=== PATIENT | female | born 1980 | race Caucasian/White ===

== ENCOUNTER 2025-01-30 10:39 | Emergency (ER) | payer OTHER, SELFPAY ==
--- NOTE | ~2025-01-30 | CT_ITS ---
CLINICAL HISTORY: abd pain CT abdomen and pelvis with IV contrast. COMPARISON: None provided. FINDINGS: Small hiatal hernia. Well-defined hypoattenuating 0.7 cm lesion present within the right lobe of the liver 5th characterize but likely representing a hepatic cyst or hemangioma. Normal gallbladder. There is mild edema along the pancreatic body and tail. No organizing fluid collection. Pancreatic duct is not dilated. No pancreatic head mass identified. Normal adrenal glands. Symmetric renal enhancement. No hydronephrosis. Normal appendix. Ehbq-rd-jmaadeso colonic stool burden. No bowel obstruction. No mesenteric or retroperitoneal lymphadenopathy. Normal abdominal aorta. Urinary bladder is unremarkable given degree of distention. No adnexal mass. Small fat containing umbilical hernia. No acute fracture or suspicious bone lesion. IMPRESSION: 1. Probable mild acute pancreatitis. No organizing fluid collection, pancreatic duct dilatation, choledocholithiasis or pancreatic head mass identified. This document has been electronically signed by: Garfield Esparza MD on 01/30/2025 13:15:24
[2025-01-30 10:43] VITALS: BP 148/100; PULSE 94; O2SAT 98
[2025-01-30 10:45] VITALS: BP 124/92; PULSE 104; RESP 20; TEMP 36.8; O2SAT 97; BMI 28.3
--- NOTE | 2025-01-30 10:54 | ED.ABDPAIN ---
HPI - Abdominal Pain General Chief Complaint: Abdominal Pain Stated Complaint: DIZZY,WEAK,VOMITING PER EMS Time Seen by Provider: 01/30/25 10:50 Source: patient, family, EMS and RN notes reviewed Mode of arrival: EMS Limitations: no limitations History of Present Illness ED Provider: Danyell Ford PA-C HPI narrative: This is a 44-year-old female, with a history of endometriosis, who presents emergency department via EMS with concerns of abdominal pain, nausea and vomiting which started 4 days ago. Patient states that she has a history of endometriosis and states that she occasionally gets flare-ups. She states that she believes that she is having a current flare-up. She states that she had a total hysterectomy approximately 1 year ago and still gets flare-ups. She endorses chills. Denies documented fevers. She states that she took Excedrin this morning which provided her with some relief. She denies any diarrhea or constipation. Denies any urinary symptoms. No other complaints or concerns at this time. MD elicited complaint: abdominal pain Pertinent past history: other (Endometriosis) Location: RLQ Quality: cramping and stabbing Radiation: RLQ Migration to: no migration Exacerbating factors: nothing Relieving factors: nothing Associated symptoms: nausea, vomiting, fever (Subjective) and chills Related Data Allergies Allergy/AdvReac Type Severity Reaction Status Date / Time ondansetron (From Zofran) Allergy Unknown Verified 01/30/25 10:48 Review of Systems Review of Systems Yes all other systems are reviewed and are negative Constitutional: Reports as per HPI [facility] Past Medical History Attestation statement: The following information was validated with the patient. Social History Social History Advance Directives: No Advance Directives Information Provided: No Physical Exam ED Vital Signs: Vital Signs - 24 hr 01/30/25 10:45 01/30/25 12:04 01/30/25 14:49 Temperature 98.2 F 97.8 F 97.9 F Pulse Rate 104 H 84 89 Respiratory Rate 20 20 13 Blood Pressure 124/92 H 146/91 H 107/81 Pulse Oximetry 97 98 98 Oxygen Delivery Method Room Air Room Air Room Air 01/30/25 14:56 Temperature 97.9 F Pulse Rate 89 Respiratory Rate 13 Blood Pressure 107/81 Pulse Oximetry 98 Oxygen Delivery Method Room Air BMI result Body Mass Index 28.3 Const Other: Patient appears to be uncomfortable secondary to pain. General: cooperative, comfortable and anxious Orientation/consciousness: patient oriented x3 Limitations: no limitations HENMT Head: Yes normal to inspection, Yes normocephalic and Yes atraumatic Ears: hearing grossly normal bilaterally General nose exam: Normal external nose present Face and sinus: Yes normal facial exam Mouth: Normal oral and palatal mucosa present, oropharynx normal and moist mucous membranes Throat: Yes posterior oropharynx normal Eyes General: appearance normal, both eyes and all related structures Eyelids: Yes eyelids normal Conjunctivae: conjunctivae normal Sclerae: sclerae normal Pupils: Equal, round and reactive pupils present EOM: EOMs intact bilaterally Neck Neck: Yes normal visual inspection, Yes full ROM and Yes no lymphadenopathy Lymphatic: no lymphadenopathy noted Chest Chest palpation & inspection: normal inspection of the chest Resp Effort & Inspection: normal respiratory effort and able to speak in complete sentences Auscultation: clear to auscultation bilaterally, no crackles, no rales, no rhonchi and no wheezes Cardio Rate: regular rate Rhythm: regular rhythm Heart sounds: S1 normal heart sound present and S2 normal heart sound present GI Other: Abdomen is soft with tenderness to palpation in the right lower quadrant, with guarding. Skin General skin exam: no rashes or lesions noted Trauma: no lacerations or abrasions Wounds: no wounds Neuro General: patient oriented x3 and moves all extremities Cranial nerves: Yes Equal, round and reactive pupils present Extrem General: Yes normal to inspection Right upper extremity: normal to inspection Left upper extremity: normal to inspection Right lower extremity: normal to inspection Left lower extremity: normal to inspection Medical Decision Making Medical Decision Making MDM Narrative: This is a 44-year-old female who presents emergency department via EMS accompanied by her with concerns of abdominal pain for the last 4 days. Patient has a history of endometriosis, and believes that this is a flare-up. History of hysterectomy, no other abdominal surgeries. Reporting subjective fevers and chills. On arrival, patient mildly hypertensive at 124/92, pulse 104, likely secondary to pain and anxiety. She is afebrile, speaking in full sentences. Patient appears to be uncomfortable secondary to abdominal pain. Abdomen is soft with tenderness palpation in the right lower quadrant, no rebound, she does have guarding noted. Differential diagnoses include endometriosis, diverticulitis, appendicitis. Plan: Labs, antiemetics, pain medication, CT abdomen and pelvis with IV contrast. Course: 11:58AM - patient's symptoms have not improved despite receiving morphine, appears to be still in significant pain, patient medicated with Dilaudid 1 mg IV. 12:57PM - patient remains to be very uncomfortable, patient re medicated with 2nd dose of Dilaudid 0.75 mg IV push as well as Toradol 15 mg IV push. Labs returned, she has slight leukocytosis at 12.7, likely reactive, infection is not suspected at this time. Chemistry within normal ranges, AST and ALT elevated in AST at 53, ALT 119, lipase elevated at 84. Urine with high specific gravity, no evidence of infection, she has no urinary symptoms. Cat scan returns findings concerning for mild pancreatitis. Given intractable pain, requiring multiple pain modality treatments including multiple doses of the Dilaudid, morphine, Toradol as well as antiemetics, patient will be best served to be admitted to the hospital for further management and treatment of her pain. I discussed this at length, she adamantly refuses. I expressed to patient that we can not discharge her on any pain medication as she required high doses of pain medication to take the edge off of her pain. I discussed with patient that she should be monitored however patient still refuses. She states that she would like to be discharged home as she could shower in get all of her belongings. Family at bedside encouraged her to stay, stating that they will also picker / packer her belongings however patient states that she must leave. I asked if there is anything in addition to help her stay, she still refuses. I discussed the risks and benefits of leaving, patient signed against medical advice as patient's medical condition can decline, including severe pain, infection, and or . She understands the risks, and would still like to be sign out. AMA paperwork signed. Differential Diagnosis Differential Diagnoses: The differential diagnosis associated with the presentation includes See above Admission/Observation Consideration of admission/observation: Escalation of care including admission/observation considered Lab Data [facility] Lab Attestation statement: I reviewed the patient's lab results. See [facility] and course 01/30/25 11:07 01/30/25 11:07 Labs: Lab Results 01/30/25 Range/Units 11:07 WBC 12.7 H (4.8-10.8) X10*3/uL RBC 4.21 (4.20-5.50) X10*6/uL Hgb 12.7 (12.0-16.0) g/dl Hct 34.4 L (37.0-47.0) % MCV 81.7 (80.0-98.0) fL MCH 30.2 (27.0-33.0) pg MCHC 36.9 H (31.0-35.0) g/dl RDW 12.1 (11.0-16.0) % Plt Count 331 (160-400) X10*3/uL MPV 9.9 (9.4-12.3) fL Immature Gran % (Auto) 0.4 (0.0-0.4) % Neut % (Auto) 87.8 H (45-73) % Lymph % (Auto) 7.7 L (20-40) % [place] % (Auto) 3.9 (2-11) % Eos % (Auto) 0.0 (0-4) % Baso % (Auto) 0.2 (0-2) % Lymph # (Auto) 1.0 L (1.2-4.9) X10*3/uL [place] # (Auto) 0.5 (0.1-1.2) X10*3/uL Eos # (Auto) 0.0 (0.0-0.4) X10*3/uL Baso # (Auto) 0.0 (0.0-0.2) X10*3/uL Abs Immat Gran (auto) 0.05 H (0.00-0.03) X10*3/uL Absolute Neuts (auto) 11.1 H (2.0-8.3) x10*3/uL Absolute Nucleated RBC 0.000 (0.0-0.012) X10*3/uL Nucleated RBC % (auto) 0.0 (0.0-0.2) /100WBC Sodium 140 (135-145) mmol/L Potassium 3.4 (3.3-5.1) mmol/L Chloride 108 (96-108) mmol/L Carbon Dioxide 18 L (22-29) mmol/L Anion Gap 17 (12-20) BUN 16 (9-16) mg/dL Creatinine 0.62 (0.5-1.4) mg/dL Estim Creat Clear Calc 107.4 Estimated GFR > 60 Random Glucose 109 (60-115) mg/dL Calcium 8.6 (8.4-10.2) mg/dL Magnesium 1.9 (1.6-2.6) mg/dL Total Bilirubin 0.7 (0.0-1.0) mg/dL Direct Bilirubin 0.4 (0.0-0.5) mg/dL AST 53 H (5-31) U/L ALT 119 H (0-31) U/L Alkaline Phosphatase 71 (39-117) U/L Total Protein 7.1 (6.5-8.0) g/dL Albumin 4.6 (3.5-5.0) g/dL Lipase 84 H (8-78) U/L Urine Color Dark Yellow Urine Appearance Clear Urine pH 6.5 (5.0-9.0) Ur Specific [place] >= 1.030 H (1.005-1.025) Urine Protein 30 (1+) H (Neg-Trace) mg/dL Urine Glucose (UA) Negative (Negative) mg/dL Urine Ketones >=160 (Negative) mg/dL Urine Blood Negative (Negative) Urine Nitrite Negative (Negative) Ur Leukocyte Esterase Trace H (Negative) Urine RBC 0-2 (0-2) /HPF Urine WBC 0-5 (0-5) /HPF Ur Squamous Epith Cells 3-5 (0-2) /HPF Urine Bacteria Trace (None Seen) Hyaline Casts 0-2 (0-2) /LPF Radiology Impression Discussion of test interpretation with radiology: I have reviewed the radiologist's reading. Radiologist Impression: FINDINGS: Small hiatal hernia. Well-defined hypoattenuating 0.7 cm lesion present within the right lobe of the liver 5th characterize but likely representing a hepatic cyst or hemangioma. Normal gallbladder. There is mild edema along the pancreatic body and tail. No organizing fluid collection. Pancreatic duct is not dilated. No pancreatic head mass identified. Normal adrenal glands. Symmetric renal enhancement. No hydronephrosis. Normal appendix. [id number] colonic stool burden. No bowel obstruction. No mesenteric or retroperitoneal lymphadenopathy. Normal abdominal aorta. Urinary bladder is unremarkable given degree of distention. No adnexal mass. Small fat containing umbilical hernia. No acute fracture or suspicious bone lesion. IMPRESSION: 1. Probable mild acute pancreatitis. No organizing fluid collection, pancreatic duct dilatation, choledocholithiasis or pancreatic head mass identified. This document has been electronically signed by: Garfield Esparza MD on 01/30/2025 13:15:24 Dictated By: Garfield Esparza MD Medications Administered Discontinued Medications Generic Name Dose Route Start Last Admin Trade Name Freq PRN Reason Stop Dose Admin Diphenhydramine HCl 12.5 mg 01/30/25 10:59 01/30/25 11:08 Diphenhydramine Hcl 50 Mg/Ml Vial IVPUSH 01/30/25 11:00 12.5 mg ONCE ONE Administration Hydromorphone HCl 1 mg 01/30/25 11:58 01/30/25 12:06 Hydromorphone Hcl 1 Mg/Ml Syringe IVPUSH 01/30/25 11:59 1 mg ONCE ONE Administration Protocol Hydromorphone HCl 0.75 mg 01/30/25 12:57 01/30/25 13:12 Hydromorphone Hcl 1 Mg/Ml Syringe IVPUSH 01/30/25 12:58 0.75 mg ONCE ONE Administration Protocol Sodium Chloride 1,000 mls @ 999 mls/hr 01/30/25 11:22 01/30/25 13:17 Ns IVCONT 01/30/25 12:22 Infused .Q1H1M ONE Infusion Iohexol 85 ml 01/30/25 12:26 01/30/25 12:27 Iohexol 350 Mg/Ml 100 Ml Infus..Btl IV 01/30/25 12:27 85 ml ONCE ONE Administration Ketorolac Tromethamine 15 mg 01/30/25 12:52 01/30/25 13:12 Ketorolac Tromethamine 15 Mg/Ml Vial IVPUSH 01/30/25 12:53 15 mg ONCE ONE Administration Metoclopramide HCl 10 mg 01/30/25 10:59 01/30/25 11:08 Metoclopramide Hcl 10 Mg/2 Ml Vial IVPUSH 01/30/25 11:00 10 mg ONCE ONE Administration Morphine Sulfate 4 mg 01/30/25 10:59 01/30/25 11:08 Morphine Sulfate 4 Mg/Ml Cartridge IVPUSH 01/30/25 11:00 4 mg ONCE ONE Administration Protocol Critical Care Time Critical Care Time Critical Care Time: Yes Total Critical Care Time: 45 Attestation: I have personally provided critical care time exclusive of time spent on separately billable procedures. Time includes review of lab data, radiology results, discussion with consultants, and monitoring for potential decompensation. Intervention performed as documented. Discharge Plan Discharge Clinical Impression: Pancreatitis Patient Disposition: Left Against Medical Advice Instructions: Pancreatitis (ED) Additional Instructions: You were seen in the emergency department due to severe abdominal pain. Your CT scan is concerning for acute pancreatitis, this aligns with your blood work. I strongly encouraged you to stay to possibly be admitted to the hospital given the severity of your abdominal pain, and we had to medicate you with multiple pain medications. You have refused staying, at this point you are leaving against medical advice. Leaving against medical advice can lead to serious harm in disability including but not limited to severe infection, injury, and or . You understands the risks and consequences of signing against medical advice. I encourage you to follow-up with your primary care physician. If any new or worsening symptoms occur including but not limited to worsening pain, chest pain, high fevers, please seek emergent care. Stand Alone Forms: Against Medical Advice Interventions: ED Discharge Assessment Last Done: 01/30/25 14:56 Discharge Date/Time: 01/30/25 14:56 Print Language: Beninese
[2025-01-30 11:12] LABS: MANUAL DIFF FLAG NO
[2025-01-30 11:15] LABS: Appearance Urine Clear; Glucose Urine UA Negative (Negative); Hematocrit 34.4 % (37.0-47.0); Hemoglobin 12.7 g/dl (12.0-16.0); Imm Gran Abs Auto 0.05 X10*3/uL (0.00-0.03); Imm Gran Pct Auto 0.4 % (0.0-0.4); Lymphocytes Absolute Auto 1.0 X10*3/uL (1.2-4.9); Mean Corpuscular HGB Conc 36.9 g/dl (31.0-35.0); Mean Corpuscular Hemoglobin 30.2 pg (27.0-33.0); Mean Corpuscular Volume 81.7 fL (80.0-98.0); NRBC Abs Auto 0.000 X10*3/uL (0.0-0.012); NRBC Pct Auto 0.0 /100WBC (0.0-0.2); PH 6.5 (5.0-9.0); Platelet Count 331 X10*3/uL (160-400); Red Blood Count 4.21 X10*6/uL (4.20-5.50); Specific Gravity - Urine >= 1.030 (1.005-1.025); UMIC TRIGGER UACC YES; White Blood Count 12.7 X10*3/uL (4.8-10.8)
--- OUTSIDE RECORDS SUMMARY | 2025-01-30 11:25 | XMS_ITS | Patient Health Record ---
Author Organization [facility] [address] Address [address] [place] [address] Care Team Providers Care Pomologist Name Role Phone BYRON MALDONADO Unavailable [phone] EDIE LOPEZ Unavailable [phone] SHON WELCH Unavailable [phone] Allergies Allergen (clinical drug ingredient) Drug/Non Drug Allergy documented on EMR Reaction Allergy Type Onset Date Status Zofran vomiting Drug Allergy Active Results Component Value Reference Range Notes IRON, TIBC AND FERRITIN PANE L Reviewed date:09/25/2024 12:30:03 PM Interpretation: Performing Lab:NL[facility], [employer] [facility] Lili [facility] Notes/Report: FASTING: NO FASTING:NO IRON, TOTAL 86 40-190 mcg/dL IRON BINDING CAPACITY 381 250-450 mcg/dL (lauro c) % SATURATION 23 16-45 % (calc) FERRITIN 10 16-232 ng/mL VITAMIN D,25-OH,TOTAL,IA Reviewed date:09/15/2024 07:55:57 AM Interpretation: Performing Lab:NL2, [employer] [facility] [address] [place], [place] [address] Lili Painter Notes/Report: FASTING: NO FASTING:NO VITAMIN D,25-OH,TOTAL,IA 38 30-100 ng/mL Vitamin D Status 25-OH Vitamin D: Deficiency: <20 ng/mL Insufficiency: 20 - 29 ng/mL Optimal: > or = 30 ng/mL For 25-OH Vitamin D testing on patients on D2-supplementation and patients for whom quantitation of D2 and D3 fractions is required, the QuestAssureD() 25-OH VIT D, (D2,D3), LC/MS/MS is recommended: order code 21728 (patients >2yrs). See Note 1 Note 1 For additional information, please refer to http://education.[employer]/faq/RNX722 (This link is being provided for informational/ educational purposes only.) VITAMIN B12 Reviewed date:09/15/2024 09:59:47 AM Interpretation: Performing Lab:[employer], [employer] [facility] [id number] Pending Sale To [facility] Notes/Report: FASTING:NO FASTING: NO VITAMIN B12 497 457-6784 pg/mL RHEUMATOID FACTOR Reviewed date:09/15/2024 07:55:57 AM Interpretation: Performing Lab:Vayyar2, [employer] [facility] [facility] Notes/Report: FASTING:NO FASTING: NO RHEUMATOID FACTOR <10 <14 IU/mL CBC (INCLUDES DIFF/PLT) Reviewed date:09/15/2024 12:05:37 PM Interpretation: Performing Lab:[employer], [employer] [facility] [facility] Notes/Report: FASTING:NO FASTING: NO WHITE BLOOD CELL COUNT 6.0 3.8-10.8 Thousand/ uL RED BLOOD CELL COUNT 3.90 3.80-5.10 Million/uL HEMOGLOBIN 11.1 11.7-15.5 g/dL HEMATOCRIT 33.6 35.0-45.0 % MCV 86.2 80.0-100.0 fL MCH 28.5 27.0-33.0 pg MCHC 33.0 32.0-36.0 g/dL For adults, a slight decrease in the calculated MCHC value (in the range of 30 to 32 g/dL) is most likely not clinically significant; however, it should be interpreted with caution in correlation with other red cell parameters and the patient's clinical condition. RDW 15.6 11.0-15.0 % PLATELET COUNT 488 140-400 Thousand/uL MPV 10.4 7.5-12.5 fL ABSOLUTE NEUTROPHILS 3168 1411-7922 cells/uL ABSOLUTE LYMPHOCYTES 2142 850-3900 cells/uL ABSOLUTE MONOCYTES 438 200-950 cells/uL ABSOLUTE EOSINOPHILS 192 15-500 cells/uL ABSOLUTE BASOPHILS 60 0-200 cells/uL NEUTROPHILS 52.8 LYMPHOCYTES 35.7 MONOCYTES 7.3 EOSINOPHILS 3.2 BASOPHILS 1.0 [address]PREHENSIVE METABOLIC PANE L Reviewed date:09/15/2024 12:05:29 PM Interpretation: Performing Lab:[employer], [employer] [facility] Lili Painter Notes/Report: FASTING:NO FASTING: NO GLUCOSE 98 65-139 mg/dL Non-fasting reference interval UREA NITROGEN (BUN) 8 7-25 mg/dL CREATININE 0.86 0.50-0.99 mg/dL EGFR 86 > OR = 60 mL/min/1.73m2 BUN/CREATININE RATIO SEE NOTE: 6-22 (calc) Not Reported: BUN and Creatinine are within reference range. SODIUM 141 135-146 mmol/L POTASSIUM 3.9 3.5-5.3 mmol/L CHLORIDE 108 98-110 mmol/L CARBON DIOXIDE 26 20-32 mmol/L CALCIUM 9.2 8.6-10.2 mg/dL PROTEIN, TOTAL 6.5 6.1-8.1 g/dL ALBUMIN 4.3 3.6-5.1 g/dL GLOBULIN 2.2 1.9-3.7 g/dL (calc) ALBUMIN/GLOBULIN RATIO 2.0 1.0-2.5 (calc) BILIRUBIN, TOTAL 0.2 0.2-1.2 mg/dL ALKALINE PHOSPHATASE 57 31-125 U/L AST 7 10-30 U/L ALT 14 6-29 U/L HARPAL SCREEN, IFA, W/REFL TITE R AND PATTERN Reviewed date:09/15/2024 04:11:28 PM Interpretation: Performing Lab:[employer], [employer] [facility] [address] Lili Painter Notes/Report: FASTING:NO FASTING: NO HARPAL SCREEN, IFA NEGATIVE NEGATIVE HARPAL IFA is a first line screen for detecting the presence of up to approximately 150 autoantibodies in various autoimmune diseases. A negative HARPAL IFA result suggests an HARPAL-associated autoimmune disease is not present at this time, but is not definitive. If there is high clinical suspicion for Sjogren's syndrome, testing for anti-SS-A/Ro antibody should be considered. Anti-Danita-1 antibody should be considered for clinically suspected inflammatory myopathies. AC-0: Negative International Consensus on HARPAL Patterns (https://doi.org/10.1515/cc oz-7688-4472) For additional information, please refer to http://education.[employer]/faq/GOV988 (This link is being provided for informational/ educational purposes only.) SED RATE BY MODIFIED JOANA MERRITT Reviewed date:09/15/2024 08:12:06 AM Interpretation: Performing Lab:NL2, [employer] [facility]-via[facility]oo [address] [facility] Lili Painter Notes/Report: FASTING:NO FASTING: NO SED RATE BY MODIFIED SHAUNA 6 < OR = 20 mm/h Reason For Referral Reason evaluate & treat Diagnosis 1 History of endometri osis (Z87.42) Referral Organization [facility] IFEANYI Referring Provider First Name BYRON Referring Provider Last Name ERICA Referring Provider Speciality Internal edicine Referred Provider Specialty Compliance Project Manager and rn licensed practical Clinical Notes Martha Cat 11/27 02:48:08 PM > faxed pt info to [facility]. p) [phone] f) [phone], Jasvir Lassiter 01/07/2025 02:37:53 PM > Michelle, conf fax. Refaxed twice. Referral Priority Routine Reason evaluate. s/p hyster ectomy Diagnosis 1 Nerve pain (M79.2) Referral Organization [facility] MICHAELA SUGGS Referring Provider First Name BYRON Referring Provider Last Name ERICA Referring Provider Speciality Internal edicine Referred Provider Specialty Pain Medicin e Clinical Notes Martha Cat 11/27 02:52:02 PM > faxed pt info to [facility]. p) [phone] f) [phone], PATRICIA CERNA 12/31/2024 04:11:31 PM >[facility], [address] [place] [address], p- [phone], Fax: [phone], Jasvir Lassiter 01/07/2025 02:49:27 PM > Spoke with misty Troncoso fax. When I fax it, it says Tiff, PDF and/or Word files are attached to this referral. ERYN KIERSTEN 01/07/2025 03:38:41 PM >refaxed Referral Priority Routine Medications Medication SIG (Take, Route, Frequency, Duration) Notes Start Date End Date Status Cyclobenzaprine HCl 5 MG 1 tablet at bed time as needed; Duration: 30 days Active Pregabalin 25 MG TAKE 1 CAPSULE BY MO UTH EVERY DAY FOR 30 DAYS Orally twice a day; Duration: 30 days 01/18/2025 Active Ferrous Sulfate 325 (65 Fe) MG TAKE 1 TABLET BY MOUTH THREE TIMES A WEEK; Duration: 84 Active [facility] Iron 240 (27 Fe) MG TAKE 1 TABLET BY MOUTH THREE TIMES A WEEK; Duration: 84 Active hydrOXYzine HCl 25 MG TAKE 1 TABLET BY M OUTH EVERY DAY NEEDED FOR ANXIETY; Duration: 90 Active buPROPion HCl ER (XL) 450 MG TAKE 1 TABL ET BY MOUTH EVERY DAY Oral; Duration: 90 days Active Norethindrone 0.35 MG TAKE 1 TABLET (0.3 5 MG) BY MOUTH EVERY DAY Oral; Duration: 84 Days Active Ibuprofen 800 MG TAKE 1 TABLET (800 M G TOTAL) BY MOUTH 3 TIMES A DAY NEEDED FOR PAIN (PAIN). Oral; Duration: 30 Days Active Escitalopram Oxalate 20 MG TAKE 1 TABLET BY MOUTH EVERY DAY Oral; Duration: 90 Days Active predniSONE 20 MG 1 tablet with food o r milk Orally twice a day; Duration: 5 days 12/17/2024 Active Problems Problem Type SNOMED Code ICD Code Onset Dates Problem Status W/U Status Risk Notes Problem Vitamin D deficiency (93274113) Vitamin D deficiency, unspecified (E55.9) Active confirmed Problem Lipid screening (331591386) Encounter for screening for lipoid disorders (Z13.220) Active confirmed Problem Endocrine/metaboli c screening (612637945) Encounter for screening for other suspected endocrine disorder (Z13.29) Active confirmed Problem Anxiety (31087318) Anxiety (F41.9) Active confi rmed Problem Fatigue (69181582) Fatigue, unspecified type (R53.83) Active confirmed Problem Memory loss (56117404) Memory loss (R41.3) Active confirmed Problem Anemia (523554444) Anemia, unspecified type (D64.9) Active confirmed Problem Annual health maintenance examination (71817323) Annual physical exam (Z00.00) Active confirmed Problem Pain (18241154) Pain (R52) Active confirmed Problem Vitamin B>12< deficiency anaemia (21305245) Anemia due to vitamin B12 deficiency, unspecified B12 deficiency type (D51.9) Active confirmed Problem Difficulty passing urine (710141477) Difficulty urinating (R39.198) Active confirmed Problem Radicular pain (82514783) Nerve pain (M79.2) Active confirmed Problem Pain in female pelvis (668730641) Pelvic pain in female (R10.2) Active confirmed Problem History of endometriosis (63699376961395139 ) History of endometriosis (Z87.42) Active confirmed Problem Osteoarthritis (684129513) Joint inflammation (M19.90) Active confirmed Vital Signs Heart Rate 96 /min 12/31/2024 Oximetry 97 % 12/31/2024 Blood pressure diastolic 70 mm Hg 12/31/2024 Height 61 in 12/31/2024 Blood pressure systolic 118 mm Hg 12/31/2024 Weight 162.4 lbs 12/31/2024 BMI 30.68 kg/m2 12/31/2024 Encounters Encounter Location Date Provider Diagnosis [facility] [address] [place] [address] 09/11/2024 BYRNO ERICA Pain R52 ; Pelvic pa in in female R10.2 ; Nerve pain M79.2 ; Anxiety F41.9 and Leg muscle spasm M62.[address] [address] 09/18/2024 BYRON ERICA Pain R52 ; Pelvic pa in in female R10.2 ; Nerve pain M79.2 ; Anxiety F41.9 ; Leg muscle spasm M62.838 ; Anemia, unspecified type D64.9 and Difficulty urinating R39.198 [facility] [address] [place] [address] 10/02/2024 BYRON ERICA Nerve pain M79.2 ; P ain R52 ; Pelvic pain in female R10.2 ; Anxiety F41.9 ; Leg muscle spasm M62.838 ; Anemia, unspecified type D64.9 and Difficulty urinating R39.[address] [facility] [address] [place] [address] 12/17/2024 BYRON ERICA Pain R52 ; Annual physical exam Z00.00 ; Nerve pain M79.2 ; Pelvic pain in female R10.2 ; Anxiety F41.9 ; Leg muscle spasm M62.838 ; Anemia, unspecified type D64.9 ; Difficulty urinating R39.198 ; Fatigue, unspecified type R53.83 ; Joint inflammation M19.90 and Encounter for examination of blood pressure without abnormal findings Z01.[address] [address] [place] [address] 12/31/2024 BYRON ERICA Pain R52 ; Nerve radha n M79.2 ; Pelvic pain in female R10.2 ; Anxiety F41.9 ; Leg muscle spasm M62.838 ; Anemia, unspecified type D64.9 ; Difficulty urinating R39.198 ; Fatigue, unspecified type R53.83 ; Joint inflammation M19.90 and Encounter for examination of blood pressure without abnormal findings Z01.[address] [address] [place] [address] 09/11/2024 BYRON ERICA Pelvic pain in femal e R10.2 [facility] [address] 09/11/2024 BYRON ERICA [facility] [address] [address] 09/17/2024 BYRON ERICA [facility] [address] [place] [address] 09/21/2024 BYRON ERICA [facility] [address] [address] 09/25/2024 BYRON ERICA [facility] [address] [place] [address] 09/29/2024 EDIE PARTHENON [facility] [address] [address] 09/29/2024 [facility] [address] [address] 09/30/2024 BYRON ERICA [facility] [address] [address] 10/05/2024 BYRON ERICA [facility] [address] [facility] [address] [place] [address] 10/26/2024 BYRON ERICA Nerve pain M79.2 [facility] [address] [facility] [address] [place] [address] 11/27/2024 BYRON ERICA Nerve pain M79.[address] [facility] [place] [address] 12/11/2024 BYRON ERICA [facility] [address] [facility] [address] [place] [address] 12/17/2024 EDIE LOPEZ [facility] [address] [place] [address] 12/18/2024 BYRON ERICA [facility] [address] [address] 12/30/2024 BYRON ERICA [facility] [address] [place] [address] 12/31/2024 BYRON ERICA Memory loss R41.3 an d Other fatigue R53.83 [facility] [address] [facility] [address] [place] [address] 12/31/2024 BYRON ERICA [facility] [address] [address] 01/06/2025 BYRON ERICA [facility] [address] [place] [address] 01/07/2025 BYRON ERICA [facility] [address] [place] [address] 01/15/2025 SHON YURI Nerve pain M79.2 [facility] [address] [address] 01/15/2025 EDIE LOPEZ [facility] [address] [place] [address] 01/15/2025 BYRON ERICA Nerve pain M79.2 [facility] [address] [facility] [address] [place] [address] 01/05/2025 EDIE LOPEZ Assessments Encounter Date Diagnosis (ICD Code) Assessment Notes Treatment Notes Treatment Clinical Notes Section Notes 09/11/2024 Pain (ICD-10 - R52) Domingo is a pleasant 43-year-old female who presents to the office today as a new patient. The patient does have a past medical history of endometriosis, hypertension and an extremely complex FACETER history. #Abdominal pain: Patient presented on 09/05/2024 at [facility] status post hysterectomy at [facility] about 3 months ago, severe worsening pain that is on the right side of her abdomen, in the right side of her back, buttocks and radiates down the leg. She states that the pain is so severe that it is causing her. She has never had a pain like this before, no loss of bladder or bowel function. Patient was given IV hydromorphone and alprazolam. #Pain Control: Patient will be sent home with gabapentin 100 mg to be utilized as needed for nerve pain, tizanidine 4 mg to butyl eyes for muscle spasms as needed as well as hydroxyzine to utilize as needed for sleep. #Anxiety: Continue Lexapro 20 mg, Wellbutrin 300 mg, Xanax as needed. Patient educated to replace hydroxyzine for Xanax due to Xanax being too strong for the patient at this time. Patient educated that hydroxyzine may make her tired. #Insomnia: Continue hydroxyzine as needed #Difficulty urinating: Obtaining stat CT of the abdomen and pelvis, Patient did have a slightly elevated white blood cell count within the emergency department on 09/05/2024 with a level of 11, Additionally patient's neutrophils were noted to be 85.6. Infection less likely on the differential as the patient was previously seen in the ER on 09/05/2024 however cannot be completely ruled out. #Endometriosis history: Patient encouraged to call and establish PRESCHOOL ASSISTANT PRINCIPAL care around the area. Will have patient sign record release for [facility] PRESCHOOL ASSISTANT PRINCIPAL. All questions have been answered to patient's satisfaction. Patient verbalized understanding of diagnosis and treatments explained. Advised to call sooner prior to next visit it any questions/concerns arise. Case discussed with Johnny GUEVARA who reviewed the assessment and plan. Chart, medications, labs, vital signs reviewed. Dictation was accomplished with the use of [employer] voice recognition software, which is prone to medical misidentifications and grammatical errors. This are unintentional and the practitioner does try to identify and correct these, but some could still be present. Please do not hesitate to contact practitioner for clarification. 09/11/2024 Pelvic pain in female (ICD-10 - R10.2) Domingo is a pleasant 43-year-old female who presents to the office today as a new patient. The patient does have a past medical history of endometriosis, hypertension and an extremely complex FACETER history. #Abdominal pain: Patient presented on 09/05/2024 at [facility] status post hysterectomy at [facility] about 3 months ago, severe worsening pain that is on the right side of her abdomen, in the right side of her back, buttocks and radiates down the leg. She states that the pain is so severe that it is causing her. She has never had a pain like this before, no loss of bladder or bowel function. Patient was given IV hydromorphone and alprazolam. #Pain Control: Patient will be sent home with gabapentin 100 mg to be utilized as needed for nerve pain, tizanidine 4 mg to butyl eyes for muscle spasms as needed as well as hydroxyzine to utilize as needed for sleep. #Anxiety: Continue Lexapro 20 mg, Wellbutrin 300 mg, Xanax as needed. Patient educated to replace hydroxyzine for Xanax due to Xanax being too strong for the patient at this time. Patient educated that hydroxyzine may make her tired. #Insomnia: Continue hydroxyzine as needed #Difficulty urinating: Obtaining stat CT of the abdomen and pelvis, Patient did have a slightly elevated white blood cell count within the emergency department on 09/05/2024 with a level of 11, Additionally patient's neutrophils were noted to be 85.6. Infection less likely on the differential as the patient was previously seen in the ER on 09/05/2024 however cannot be completely ruled out. #Endometriosis history: Patient encouraged to call and establish PRESCHOOL ASSISTANT PRINCIP[employer] care around the area. Will have patient sign record release for [facility] PRESCHOOL ASSISTANT PRINCIPAL. All questions have been answered to patient's satisfaction. Patient verbalized understanding of diagnosis and treatments explained. Advised to call sooner prior to next visit it any questions/concerns arise. Case discussed with Johnny GUEVARA who reviewed the assessment and plan. Chart, medications, labs, vital signs reviewed. Dictation was accomplished with the use of [employer] voice recognition software, which is prone to medical misidentifications and grammatical errors. This are unintentional and the practitioner does try to identify and correct these, but some could still be present. Please do not hesitate to contact practitioner for clarification. 09/11/2024 Pelvic pain in female (ICD-10 - R10.2) 09/18/2024 Pain (ICD-10 - R52) Domingo is a pleasant 43-year-old female who presents to the office today as a new patient. The patient does have a past medical history of endometriosis, hypertension and an extremely complex FACETER history. #Abdominal pain: Patient presented on 09/05/2024 at [facility] status post hysterectomy at [facility] about 3 months ago, severe worsening pain that is on the right side of her abdomen, in the right side of her back, buttocks and radiates down the leg. She states that the pain is so severe that it is causing her. She has never had a pain like this before, no loss of bladder or bowel function. Patient was given IV hydromorphone and alprazolam. CT scan of the abdomen and pelvis are unremarkable. #Pain management: Prednisone taper will be sent to the pharmacy, she is to utilize tizanidine HCL 4 mg tablets every 4-6 hours as needed for muscle spasms. We will be discontinuing gabapentin 100 mg at this time as the patient had a reaction to this medication. Consider Cymbalta or Lyrica. 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 Arango office to establish gynecologic care. #Difficulty urinating: Urinary bladder noted to be unremarkable on recent CT scan. However pre and post residual volume kidney and bladder ultrasound ordered today for further evaluation. Consider referring patient to urogynecology. #Endometriosis: Patient currently on norethindrone 0.35 mg tablets daily. Patient's mother inquiring about nonnarcotic pain medication, however I do not feel comfortable prescribing this today. Patient needs to bring this up with her newly established PRESCHOOL ASSISTANT PRINCIPAL for further pain management. #Insomnia: Continue hydroxyzine 25 mg tablets daily. #Anxiety: Continue Lexapro 20 mg, Wellbutrin 300 mg, Xanax as needed. Patient educated to replace hydroxyzine for Xanax due to Xanax being too strong for the patient at this time. Patient educated that hydroxyzine may make her tired. #Thrombocytosis: Will be ordering iron studies for further evaluation #Insomnia: Continue hydroxyzine as needed #Difficulty urinating: Ordering kidney and bladder ultrasound. Patient did have a slightly elevated white blood cell count within the emergency department on 09/05/2024 with a level of 11, Additionally patient's neutrophils were noted to be 85.6. Infection less likely on the differential as the patient was previously seen in the ER on 09/05/2024 however cannot be completely ruled out. Repeat CBC demonstrated no evidence of increased white blood cell count which is reassuring. #Endometriosis history: Patient encouraged to call and establish PRESCHOOL ASSISTANT PRINCIPAL care around the area. Will have patient sign record release for [facility] PRESCHOOL ASSISTANT PRINCIPAL. #Fatigue: Due to patient's increased platelet, iron studies will be obtained. Patient states that she was told in the past she had been anemic, patient today states that she does take [id number] iron supplementation All questions have been answered to patient's satisfaction. Patient verbalized understanding of diagnosis and treatments explained. Advised to call sooner prior to next visit it any questions/concerns arise. Case discussed with Johnny GUEVARA who reviewed the assessment and plan. Chart, medications, labs, vital signs reviewed. Dictation was accomplished with the use of [employer] voice recognition software, which is prone to medical misidentifications and grammatical errors. This are unintentional and the practitioner does try to identify and correct these, but some could still be present. Please do not hesitate to contact practitioner for clarification. 09/18/2024 Pelvic pain in female (ICD-10 - R10.2) Domingo is a pleasant 43-year-old female who presents to the office today as a new patient. The patient does have a past medical history of endometriosis, hypertension and an extremely complex FACETER history. #Abdominal pain: Patient presented on 09/05/2024 at [facility] status post hysterectomy at [facility] about 3 months ago, severe worsening pain that is on the right side of her abdomen, in the right side of her back, buttocks and radiates down the leg. She states that the pain is so severe that it is causing her. She has never had a pain like this before, no loss of bladder or bowel function. Patient was given IV hydromorphone and alprazolam. CT scan of the abdomen and pelvis are unremarkable. #Pain management: Prednisone taper will be sent to the pharmacy, she is to utilize tizanidine HCL 4 mg tablets every 4-6 hours as needed for muscle spasms. We will be discontinuing gabapentin 100 mg at this time as the patient had a reaction to this medication. Consider Cymbalta or Lyrica. 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 Arango office to establish gynecologic care. #Difficulty urinating: Urinary bladder noted to be unremarkable on recent CT scan. However pre and post residual volume kidney and bladder ultrasound ordered today for further evaluation. Consider referring patient to urogynecology. #Endometriosis: Patient currently on norethindrone 0.35 mg tablets daily. Patient's mother inquiring about nonnarcotic pain medication, however I do not feel comfortable prescribing this today. Patient needs to bring this up with her newly established PRESCHOOL ASSISTANT PRINCIPAL for further pain management. #Insomnia: Continue hydroxyzine 25 mg tablets daily. #Anxiety: Continue Lexapro 20 mg, Wellbutrin 300 mg, Xanax as needed. Patient educated to replace hydroxyzine for Xanax due to Xanax being too strong for the patient at this time. Patient educated that hydroxyzine may make her tired. #Thrombocytosis: Will be ordering iron studies for further evaluation #Insomnia: Continue hydroxyzine as needed #Difficulty urinating: Ordering kidney and bladder ultrasound. Patient did have a slightly elevated white blood cell count within the emergency department on 09/05/2024 with a level of 11, Additionally patient's neutrophils were noted to be 85.6. Infection less likely on the differential as the patient was previously seen in the ER on 09/05/2024 however cannot be completely ruled out. Repeat CBC demonstrated no evidence of increased white blood cell count which is reassuring. #Endometriosis history: Patient encouraged to call and establish [employer] care around the area. Will have patient sign record release for [facility] [employer]. #Fatigue: Due to patient's increased platelet, iron studies will be obtained. Patient states that she was told in the past she had been anemic, patient today states that she does take [id number] iron supplementation All questions have been answered to patient's satisfaction. Patient verbalized understanding of diagnosis and treatments explained. Advised to call sooner prior to next visit it any questions/concerns arise. Case discussed with Johnny GUEVARA who reviewed the assessment and plan. Chart, medications, labs, vital signs reviewed. Dictation was accomplished with the use of [employer] voice recognition software, which is prone to medical misidentifications and grammatical errors. This are unintentional and the practitioner does try to identify and correct these, but some could still be present. Please do not hesitate to contact practitioner for clarification. 10/02/2024 Nerve pain (ICD-10 - M79.2) Domingo is a pleasant 43-year-old female who presents to the office today as a new patient. The patient does have a past medical history of endometriosis, hypertension and an extremely complex FACETER history. #Nerve pain: Ordering a EMG on the right lower extremity to assess nerve entrapment. #Abdominal pain: Patient presented on 09/05/2024 at [facility] status post hysterectomy at [facility] about 3 months ago, severe worsening pain that is on the right side of her abdomen, in the right side of her back, buttocks and radiates down the leg. She states that the pain is so severe that it is causing her. She has never had a pain like this before, no loss of bladder or bowel function. Patient was given IV hydromorphone and alprazolam. CT scan of the abdomen and pelvis are unremarkable. #Pain management: For pain management will be sending Lyrica to be utilized as needed for her nerve pain. Ketorolac will be sent to the pharmacy to be utilized for general pain and cyclobenzaprine is to be utilized only for muscle spasms. 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 Arango office to establish gynecologic care. #Endometriosis: Patient currently on norethindrone 0.35 mg tablets daily. Patient's mother inquiring about nonnarcotic pain medication, however I do not feel comfortable prescribing this today. Patient needs to bring this up with her newly established [employer] for further pain management. #Insomnia: Continue hydroxyzine 25 mg tablets daily. #Anxiety: Continue Lexapro 20 mg, Wellbutrin 300 mg, Xanax as needed. Patient educated to replace hydroxyzine for Xanax due to Xanax being too strong for the patient at this time. Patient educated that hydroxyzine may make her tired. Will call Dr. Mendes the patient's psychiatrist and discussed potentially prescribing Cymbalta as the patient may benefit from the dual property of nerve pain and anxiety/depression. #Thrombocytosis: Will be ordering iron studies for further evaluation #Insomnia: Continue hydroxyzine as needed #Endometriosis history: Patient encouraged to call and establish [employer] care around the area. Will have patient sign record release for [facility] [employer]. #Fatigue: Due to patient's increased platelet, iron studies will be obtained. Patient states that she was told in the past she had been anemic, patient today states that she does take [id number] iron supplementation All questions have been answered to patient's satisfaction. Patient verbalized understanding of diagnosis and treatments explained. Advised to call sooner prior to next visit it any questions/concerns arise. Case discussed with Johnny GUEVARA who reviewed the assessment and plan. Chart, medications, labs, vital signs reviewed. Dictation was accomplished with the use of [employer] voice recognition software, which is prone to medical misidentifications and grammatical errors. This are unintentional and the practitioner does try to identify and correct these, but some could still be present. Please do not hesitate to contact practitioner for clarification. 10/26/2024 Nerve pain (ICD-10 - M79.2) 11/27/2024 Nerve pain (ICD-10 - M79.2) 12/17/2024 Annual physical exam (ICD-10 - Z00.00) Domingo is a pleasant 43-year-old female who presents for a CPE. #Pain: Continue taking Lyrica 25 mg capsules twice daily as needed for pain. Referring patient to pain management for a further evaluation. #Endometriosis flare?: Patient has been previously prescribed prednisone in the past for inflammation, prescribing patient prednisone burst x 5 days... Ultimately patient is aware that she needs to be seen by pain management, unsure of the entirety of the cause of patient's pain at this time. Most likely at this time includes nerve inflammation from endometriosis or from previous hysterectomy. #Endometriosis: Continue norethindrone 0.5 mg tablets daily, patient encouraged to call her previous [employer] surgeon who performed the hysterectomy for further evaluation. She may need a laparoscopic surgery as her endometriosis may be as her endometriosis may be continuing to spread and be causing her pain. Patient extremely tender upon abdominal exam today. Patient did have a CT scan of her abdomen completed that was overall unremarkable. #Rectal bleeding: Patient denies rectal exam at this time, she is to call the office if this does not improve. Patient encouraged to utilize MiraLAX for softer bowel movements as she has not been having bowel movements more than once a week. #Fatigue: May would not be related to iron deficiency, obtaining new labs #Amylase/lipase: Ordering for patient as she states in the hospital numerous years ago's these values were elevated. #Renal ultrasound: I performed a renal ultrasound due to back pain at prior appointment that was overall unremarkable as well. #Iron studies: Placed today. Patient did have lab work completed back in August that demonstrated a low ferritin level of 10, she is currently taking iron 3 times weekly. #Anxiety: Continue following with psychiatry, patient had her dose of Wellbutrin increased to 400 mg, still taking escitalopram 20 mg tablets. I encouraged patient to call psychiatrist and advocate for Cymbalta as this may help with her nerve pain. #Muscle spasms: Utilize cyclobenzaprine HCL 5 mg tablets as needed. Discontinue ketorolac as this has not been helpful for patient. #Insomnia: Continue hydroxyzine 25 mg tablets as needed. #Abdominal pain: Patient presented on 09/05/2024 at [facility] status post hysterectomy at [facility] about 3 months ago, severe worsening pain that is on the right side of her abdomen, in the right side of her back, buttocks and radiates down the leg. She states that the pain is so severe that it is causing her. She has never had a pain like this before, no loss of bladder or bowel function. Patient was given IV hydromorphone and alprazolam. CT scan of the abdomen and pelvis are unremarkable. 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 Arango office to establish gynecologic care. All questions have been answered to patient's satisfaction. Patient verbalized understanding of diagnosis and treatments explained. Advised to call sooner prior to next visit it any questions/concerns arise. Case discussed with Johnny GUEVARA who reviewed the assessment and plan. Chart, medications, labs, vital signs reviewed. Dictation was accomplished with the use of [employer] voice recognition software, which is prone to medical misidentifications and grammatical errors. This are unintentional and the practitioner does try to identify and correct these, but some could still be present. Please do not hesitate to contact practitioner for clarification. 12/17/2024 Pain (ICD-10 - R52) Domingo is a pleasant 43-year-old female who presents for a CPE. #Pain: Continue taking Lyrica 25 mg capsules twice daily as needed for pain. Referring patient to pain management for a further evaluation. #Endometriosis flare?: Patient has been previously prescribed prednisone in the past for inflammation, prescribing patient prednisone burst x 5 days... Ultimately patient is aware that she needs to be seen by pain management, unsure of the entirety of the cause of patient's pain at this time. Most likely at this time includes nerve inflammation from endometriosis or from previous hysterectomy. #Endometriosis: Continue norethindrone 0.5 mg tablets daily, patient encouraged to call her previous [employer] surgeon who performed the hysterectomy for further evaluation. She may need a laparoscopic surgery as her endometriosis may be as her endometriosis may be continuing to spread and be causing her pain. Patient extremely tender upon abdominal exam today. Patient did have a CT scan of her abdomen completed that was overall unremarkable. #Rectal bleeding: Patient denies rectal exam at this time, she is to call the office if this does not improve. Patient encouraged to utilize MiraLAX for softer bowel movements as she has not been having bowel movements more than once a week. #Fatigue: May would not be related to iron deficiency, obtaining new labs #Amylase/lipase: Ordering for patient as she states in the hospital numerous years ago's these values were elevated. #Renal ultrasound: I performed a renal ultrasound due to back pain at prior appointment that was overall unremarkable as well. #Iron studies: Placed today. Patient did have lab work completed back in August that demonstrated a low ferritin level of 10, she is currently taking iron 3 times weekly. #Anxiety: Continue following with psychiatry, patient had her dose of Wellbutrin increased to 400 mg, still taking escitalopram 20 mg tablets. I encouraged patient to call psychiatrist and advocate for Cymbalta as this may help with her nerve pain. #Muscle spasms: Utilize cyclobenzaprine HCL 5 mg tablets as needed. Discontinue ketorolac as this has not been helpful for patient. #Insomnia: Continue hydroxyzine 25 mg tablets as needed. #Abdominal pain: Patient presented on 09/05/2024 at [facility] status post hysterectomy at [facility] about 3 months ago, severe worsening pain that is on the right side of her abdomen, in the right side of her back, buttocks and radiates down the leg. She states that the pain is so severe that it is causing her. She has never had a pain like this before, no loss of bladder or bowel function. Patient was given IV hydromorphone and alprazolam. CT scan of the abdomen and pelvis are unremarkable. 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 Arango office to establish gynecologic care. All questions have been answered to patient's satisfaction. Patient verbalized understanding of diagnosis and treatments explained. Advised to call sooner prior to next visit it any questions/concerns arise. Case discussed with Johnny GUEVARA who reviewed the assessment and plan. Chart, medications, labs, vital signs reviewed. Dictation was accomplished with the use of [employer] voice recognition software, which is prone to medical misidentifications and grammatical errors. This are unintentional and the practitioner does try to identify and correct these, but some could still be present. Please do not hesitate to contact practitioner for clarification. 12/31/2024 Nerve pain (ICD-10 - M79.2) Domingo is a pleasant 43-year-old female who presents for a f/u... #Brain fog: Obtaining CT scan of the brain for memory loss and brain fog concern #Pain: Continue taking Lyrica 25 mg capsules twice daily as needed for pain. Pain management informed us that they are no longer taking new patients, will try and find new pain management clinic for patient #Endometriosis: Continue norethindrone 0.5 mg tablets daily, patient encouraged to call her previous [employer] surgeon who performed the hysterectomy for further evaluation. She may need a laparoscopic surgery as her endometriosis may be as her endometriosis may be continuing to spread and be causing her pain. #Rectal bleeding:Resolved, continue to lysing MiraLAX and Colace #Fatigue: May would not be related to iron deficiency, obtaining new labs.. May be related to chronic fatigue from endometriosis #Amylase/lipase: Ordering for patient as she states in the hospital numerous years ago these values were elevated... Pending at this time #Renal ultrasound: I performed a renal ultrasound due to back pain at prior appointment that was overall unremarkable as well. #Iron studies: Pending at this time #Anxiety: Continue following with psychiatry, patient had her dose of Wellbutrin increased to 400 mg, still taking escitalopram 20 mg tablets. I encouraged patient to call psychiatrist and advocate for Cymbalta as this may help with her nerve pain... Has an appointment scheduled the end of the month #Muscle spasms: Utilize cyclobenzaprine HCL 5 mg tablets as needed. Discontinue ketorolac as this has not been helpful for patient. #Insomnia: Continue hydroxyzine 25 mg tablets as needed. #Abdominal pain: Patient presented on 09/05/2024 at [facility] status post hysterectomy at [facility] about 3 months ago, severe worsening pain that is on the right side of her abdomen, in the right side of her back, buttocks and radiates down the leg. She states that the pain is so severe that it is causing her. She has never had a pain like this before, no loss of bladder or bowel function. Patient was given IV hydromorphone and alprazolam. CT scan of the abdomen and pelvis are unremarkable. 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 Arango office to establish gynecologic care... States she has appointment standing for March All questions have been answered to patient's satisfaction. Patient verbalized understanding of diagnosis and treatments explained. Advised to call sooner prior to next visit it any questions/concerns arise. Case discussed with Johnny GUEVARA who reviewed the assessment and plan. Chart, medications, labs, vital signs reviewed. Dictation was accomplished with the use of [employer] voice recognition software, which is prone to medical misidentifications and grammatical errors. This are unintentional and the practitioner does try to identify and correct these, but some could still be present. Please do not hesitate to contact practitioner for clarification. 12/31/2024 Pain (ICD-10 - R52) Domingo is a pleasant 43-year-old female who presents for a f/u... #Brain fog: Obtaining CT scan of the brain for memory loss and brain fog concern #Pain: Continue taking Lyrica 25 mg capsules twice daily as needed for pain. Pain management informed us that they are no longer taking new patients, will try and find new pain management clinic for patient #Endometriosis: Continue norethindrone 0.5 mg tablets daily, patient encouraged to call her previous [employer] surgeon who performed the hysterectomy for further evaluation. She may need a laparoscopic surgery as her endometriosis may be as her endometriosis may be continuing to spread and be causing her pain. #Rectal bleeding:Resolved, continue to lysing MiraLAX and Colace #Fatigue: May would not be related to iron deficiency, obtaining new labs.. May be related to chronic fatigue from endometriosis #Amylase/lipase: Ordering for patient as she states in the hospital numerous years ago these values were elevated... Pending at this time #Renal ultrasound: I performed a renal ultrasound due to back pain at prior appointment that was overall unremarkable as well. #Iron studies: Pending at this time #Anxiety: Continue following with psychiatry, patient had her dose of Wellbutrin increased to 400 mg, still taking escitalopram 20 mg tablets. I encouraged patient to call psychiatrist and advocate for Cymbalta as this may help with her nerve pain... Has an appointment scheduled the end of the month #Muscle spasms: Utilize cyclobenzaprine HCL 5 mg tablets as needed. Discontinue ketorolac as this has not been helpful for patient. #Insomnia: Continue hydroxyzine 25 mg tablets as needed. #Abdominal pain: Patient presented on 09/05/2024 at [facility] status post hysterectomy at [facility] about 3 months ago, severe worsening pain that is on the right side of her abdomen, in the right side of her back, buttocks and radiates down the leg. She states that the pain is so severe that it is causing her. She has never had a pain like this before, no loss of bladder or bowel function. Patient was given IV hydromorphone and alprazolam. CT scan of the abdomen and pelvis are unremarkable. 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 Arango office to establish gynecologic care... States she has appointment standing for March All questions have been answered to patient's satisfaction. Patient verbalized understanding of diagnosis and treatments explained. Advised to call sooner prior to next visit it any questions/concerns arise. Case discussed with Johnny GUEVARA who reviewed the assessment and plan. Chart, medications, labs, vital signs reviewed. Dictation was accomplished with the use of [employer] voice recognition software, which is prone to medical misidentifications and grammatical errors. This are unintentional and the practitioner does try to identify and correct these, but some could still be present. Please do not hesitate to contact practitioner for clarification. 12/31/2024 Memory loss (ICD-10 - R41.3) 01/15/2025 Nerve pain (ICD-10 - M79.2) 01/15/2025 Nerve pain (ICD-10 - M79.2) 12/31/2024 Pelvic pain in female (ICD-10 - R10.2) Domingo is a pleasant 43-year-old female who presents for a f/u... #Brain fog: Obtaining CT scan of the brain for memory loss and brain fog concern #Pain: Continue taking Lyrica 25 mg capsules twice daily as needed for pain. Pain management informed us that they are no longer taking new patients, will try and find new pain management clinic for patient #Endometriosis: Continue norethindrone 0.5 mg tablets daily, patient encouraged to call her previous [employer] surgeon who performed the hysterectomy for further evaluation. She may need a laparoscopic surgery as her endometriosis may be as her endometriosis may be continuing to spread and be causing her pain. #Rectal bleeding:Resolved, continue to lysing MiraLAX and Colace #Fatigue: May would not be related to iron deficiency, obtaining new labs.. May be related to chronic fatigue from endometriosis #Amylase/lipase: Ordering for patient as she states in the hospital numerous years ago these values were elevated... Pending at this time #Renal ultrasound: I performed a renal ultrasound due to back pain at prior appointment that was overall unremarkable as well. #Iron studies: Pending at this time #Anxiety: Continue following with psychiatry, patient had her dose of Wellbutrin increased to 400 mg, still taking escitalopram 20 mg tablets. I encouraged patient to call psychiatrist and advocate for Cymbalta as this may help with her nerve pain... Has an appointment scheduled the end of the month #Muscle spasms: Utilize cyclobenzaprine HCL 5 mg tablets as needed. Discontinue ketorolac as this has not been helpful for patient. #Insomnia: Continue hydroxyzine 25 mg tablets as needed. #Abdominal pain: Patient presented on 09/05/2024 at [facility] status post hysterectomy at [facility] about 3 months ago, severe worsening pain that is on the right side of her abdomen, in the right side of her back, buttocks and radiates down the leg. She states that the pain is so severe that it is causing her. She has never had a pain like this before, no loss of bladder or bowel function. Patient was given IV hydromorphone and alprazolam. CT scan of the abdomen and pelvis are unremarkable. 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 Arango office to establish gynecologic care... States she has appointment standing for March All questions have been answered to patient's satisfaction. Patient verbalized understanding of diagnosis and treatments explained. Advised to call sooner prior to next visit it any questions/concerns arise. Case discussed with Johnny GUEVARA who reviewed the assessment and plan. Chart, medications, labs, vital signs reviewed. Dictation was accomplished with the use of [employer] voice recognition software, which is prone to medical misidentifications and grammatical errors. This are unintentional and the practitioner does try to identify and correct these, but some could still be present. Please do not hesitate to contact practitioner for clarification. 12/31/2024 Other fatigue (ICD-10 - R53.83) 12/17/2024 Nerve pain (ICD-10 - M79.2) Domingo is a pleasant 43-year-old female who presents for a CPE. #Pain: Continue taking Lyrica 25 mg capsules twice daily as needed for pain. Referring patient to pain management for a further evaluation. #Endometriosis flare?: Patient has been previously prescribed prednisone in the past for inflammation, prescribing patient prednisone burst x 5 days... Ultimately patient is aware that she needs to be seen by pain management, unsure of the entirety of the cause of patient's pain at this time. Most likely at this time includes nerve inflammation from endometriosis or from previous hysterectomy. #Endometriosis: Continue norethindrone 0.5 mg tablets daily, patient encouraged to call her previous [employer] surgeon who performed the hysterectomy for further evaluation. She may need a laparoscopic surgery as her endometriosis may be as her endometriosis may be continuing to spread and be causing her pain. Patient extremely tender upon abdominal exam today. Patient did have a CT scan of her abdomen completed that was overall unremarkable. #Rectal bleeding: Patient denies rectal exam at this time, she is to call the office if this does not improve. Patient encouraged to utilize MiraLAX for softer bowel movements as she has not been having bowel movements more than once a week. #Fatigue: May would not be related to iron deficiency, obtaining new labs #Amylase/lipase: Ordering for patient as she states in the hospital numerous years ago's these values were elevated. #Renal ultrasound: I performed a renal ultrasound due to back pain at prior appointment that was overall unremarkable as well. #Iron studies: Placed today. Patient did have lab work completed back in August that demonstrated a low ferritin level of 10, she is currently taking iron 3 times weekly. #Anxiety: Continue following with psychiatry, patient had her dose of Wellbutrin increased to 400 mg, still taking escitalopram 20 mg tablets. I encouraged patient to call psychiatrist and advocate for Cymbalta as this may help with her nerve pain. #Muscle spasms: Utilize cyclobenzaprine HCL 5 mg tablets as needed. Discontinue ketorolac as this has not been helpful for patient. #Insomnia: Continue hydroxyzine 25 mg tablets as needed. #Abdominal pain: Patient presented on 09/05/2024 at [facility] status post hysterectomy at [facility] about 3 months ago, severe worsening pain that is on the right side of her abdomen, in the right side of her back, buttocks and radiates down the leg. She states that the pain is so severe that it is causing her. She has never had a pain like this before, no loss of bladder or bowel function. Patient was given IV hydromorphone and alprazolam. CT scan of the abdomen and pelvis are unremarkable. 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 Arango office to establish gynecologic care. All questions have been answered to patient's satisfaction. Patient verbalized understanding of diagnosis and treatments explained. Advised to call sooner prior to next visit it any questions/concerns arise. Case discussed with Johnny GUEVARA who reviewed the assessment and plan. Chart, medications, labs, vital signs reviewed. Dictation was accomplished with the use of [employer] voice recognition software, which is prone to medical misidentifications and grammatical errors. This are unintentional and the practitioner does try to identify and correct these, but some could still be present. Please do not hesitate to contact practitioner for clarification. 09/18/2024 Nerve pain (ICD-10 - M79.2) Domingo is a pleasant 43-year-old female who presents to the office today as a new patient. The patient does have a past medical history of endometriosis, hypertension and an extremely complex FACETER history. #Abdominal pain: Patient presented on 09/05/2024 at [facility] status post hysterectomy at [facility] about 3 months ago, severe worsening pain that is on the right side of her abdomen, in the right side of her back, buttocks and radiates down the leg. She states that the pain is so severe that it is causing her. She has never had a pain like this before, no loss of bladder or bowel function. Patient was given IV hydromorphone and alprazolam. CT scan of the abdomen and pelvis are unremarkable. #Pain management: Prednisone taper will be sent to the pharmacy, she is to utilize tizanidine HCL 4 mg tablets every 4-6 hours as needed for muscle spasms. We will be discontinuing gabapentin 100 mg at this time as the patient had a reaction to this medication. Consider Cymbalta or Lyrica. 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 Arango office to establish gynecologic care. #Difficulty urinating: Urinary bladder noted to be unremarkable on recent CT scan. However pre and post residual volume kidney and bladder ultrasound ordered today for further evaluation. Consider referring patient to urogynecology. #Endometriosis: Patient currently on norethindrone 0.35 mg tablets daily. Patient's mother inquiring about nonnarcotic pain medication, however I do not feel comfortable prescribing this today. Patient needs to bring this up with her newly established [employer]CHOOL ASSISTANT PRINCIPAL for further pain management. #Insomnia: Continue hydroxyzine 25 mg tablets daily. #Anxiety: Continue Lexapro 20 mg, Wellbutrin 300 mg, Xanax as needed. Patient educated to replace hydroxyzine for Xanax due to Xanax being too strong for the patient at this time. Patient educated that hydroxyzine may make her tired. #Thrombocytosis: Will be ordering iron studies for further evaluation #Insomnia: Continue hydroxyzine as needed #Difficulty urinating: Ordering kidney and bladder ultrasound. Patient did have a slightly elevated white blood cell count within the emergency department on 09/05/2024 with a level of 11, Additionally patient's neutrophils were noted to be 85.6. Infection less likely on the differential as the patient was previously seen in the ER on 09/05/2024 however cannot be completely ruled out. Repeat CBC demonstrated no evidence of increased white blood cell count which is reassuring. #Endometriosis history: Patient encouraged to call and establish PRESCHOOL ASSISTANT PRINCIPAL care around the area. Will have patient sign record release for [facility] PRESCHOOL ASSISTANT PRINCIPAL. #Fatigue: Due to patient's increased platelet, iron studies will be obtained. Patient states that she was told in the past she had been anemic, patient today states that she does take [id number] iron supplementation All questions have been answered to patient's satisfaction. Patient verbalized understanding of diagnosis and treatments explained. Advised to call sooner prior to next visit it any questions/concerns arise. Case discussed with Johnny GUEVARA who reviewed the assessment and plan. Chart, medications, labs, vital signs reviewed. Dictation was accomplished with the use of [employer] voice recognition software, which is prone to medical misidentifications and grammatical errors. This are unintentional and the practitioner does try to identify and correct these, but some could still be present. Please do not hesitate to contact practitioner for clarification. 10/02/2024 Pain (ICD-10 - R52) Domingo is a pleasant 43-year-old female who presents to the office today as a new patient. The patient does have a past medical history of endometriosis, hypertension and an extremely complex FACETER history. #Nerve pain: Ordering a EMG on the right lower extremity to assess nerve entrapment. #Abdominal pain: Patient presented on 09/05/2024 at [facility] status post hysterectomy at [facility] about 3 months ago, severe worsening pain that is on the right side of her abdomen, in the right side of her back, buttocks and radiates down the leg. She states that the pain is so severe that it is causing her. She has never had a pain like this before, no loss of bladder or bowel function. Patient was given IV hydromorphone and alprazolam. CT scan of the abdomen and pelvis are unremarkable. #Pain management: For pain management will be sending Lyrica to be utilized as needed for her nerve pain. Ketorolac will be sent to the pharmacy to be utilized for general pain and cyclobenzaprine is to be utilized only for muscle spasms. 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 Arango office to establish gynecologic care. #Endometriosis: Patient currently on norethindrone 0.35 mg tablets daily. Patient's mother inquiring about nonnarcotic pain medication, however I do not feel comfortable prescribing this today. Patient needs to bring this up with her newly established [employer]CHO[employer] ASSISTANT PRINCIPAL for further pain management. #Insomnia: Continue hydroxyzine 25 mg tablets daily. #Anxiety: Continue Lexapro 20 mg, Wellbutrin 300 mg, Xanax as needed. Patient educated to replace hydroxyzine for Xanax due to Xanax being too strong for the patient at this time. Patient educated that hydroxyzine may make her tired. Will call Dr. Mendes the patient's psychiatrist and discussed potentially prescribing Cymbalta as the patient may benefit from the dual property of nerve pain and anxiety/depression. #Thrombocytosis: Will be ordering iron studies for further evaluation #Insomnia: Continue hydroxyzine as needed #Endometriosis history: Patient encouraged to call and establish [employer]ANT PRINCIPAL care around the area. Will have patient sign record release for [facility] PRESCHOOL ASSISTANT PRINCIPAL. #Fatigue: Due to patient's increased platelet, iron studies will be obtained. Patient states that she was told in the past she had been anemic, patient today states that she does take [id number] iron supplementation All questions have been answered to patient's satisfaction. Patient verbalized understanding of diagnosis and treatments explained. Advised to call sooner prior to next visit it any questions/concerns arise. Case discussed with Johnny GUEVARA who reviewed the assessment and plan. Chart, medications, labs, vital signs reviewed. Dictation was accomplished with the use of [employer] voice recognition software, which is prone to medical misidentifications and grammatical errors. This are unintentional and the practitioner does try to identify and correct these, but some could still be present. Please do not hesitate to contact practitioner for clarification. 09/11/2024 Nerve pain (ICD-10 - M79.2) Domingo is a pleasant 43-year-old female who presents to the office today as a new patient. The patient does have a past medical history of endometriosis, hypertension and an extremely complex FACETER history. #Abdominal pain: Patient presented on 09/05/2024 at [facility] status post hysterectomy at [facility] about 3 months ago, severe worsening pain that is on the right side of her abdomen, in the right side of her back, buttocks and radiates down the leg. She states that the pain is so severe that it is causing her. She has never had a pain like this before, no loss of bladder or bowel function. Patient was given IV hydromorphone and alprazolam. #Pain Control: Patient will be sent home with gabapentin 100 mg to be utilized as needed for nerve pain, tizanidine 4 mg to butyl eyes for muscle spasms as needed as well as hydroxyzine to utilize as needed for sleep. #Anxiety: Continue Lexapro 20 mg, Wellbutrin 300 mg, Xanax as needed. Patient educated to replace hydroxyzine for Xanax due to Xanax being too strong for the patient at this time. Patient educated that hydroxyzine may make her tired. #Insomnia: Continue hydroxyzine as needed #Difficulty urinating: Obtaining stat CT of the abdomen and pelvis, Patient did have a slightly elevated white blood cell count within the emergency department on 09/05/2024 with a level of 11, Additionally patient's neutrophils were noted to be 85.6. Infection less likely on the differential as the patient was previously seen in the ER on 09/05/2024 however cannot be completely ruled out. #Endometriosis history: Patient encouraged to call and establish [employer] PRINCIP[employer] care around the area. Will have patient sign record release for [facility] PRESCHOOL ASSISTANT PRINCIPAL. All questions have been answered to patient's satisfaction. Patient verbalized understanding of diagnosis and treatments explained. Advised to call sooner prior to next visit it any questions/concerns arise. Case discussed with Johnny GUEVARA who reviewed the assessment and plan. Chart, medications, labs, vital signs reviewed. Dictation was accomplished with the use of [employer] voice recognition software, which is prone to medical misidentifications and grammatical errors. This are unintentional and the practitioner does try to identify and correct these, but some could still be present. Please do not hesitate to contact practitioner for clarification. 09/18/2024 Anxiety (ICD-10 - F41.9) Domingo is a pleasant 43-year-old female who presents to the office today as a new patient. The patient does have a past medical history of endometriosis, hypertension and an extremely complex FACETER history. #Abdominal pain: Patient presented on 09/05/2024 at [facility] status post hysterectomy at [facility] about 3 months ago, severe worsening pain that is on the right side of her abdomen, in the right side of her back, buttocks and radiates down the leg. She states that the pain is so severe that it is causing her. She has never had a pain like this before, no loss of bladder or bowel function. Patient was given IV hydromorphone and alprazolam. CT scan of the abdomen and pelvis are unremarkable. #Pain management: Prednisone taper will be sent to the pharmacy, she is to utilize tizanidine HCL 4 mg tablets every 4-6 hours as needed for muscle spasms. We will be discontinuing gabapentin 100 mg at this time as the patient had a reaction to this medication. Consider Cymbalta or Lyrica. 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 Arango office to establish gynecologic care. #Difficulty urinating: Urinary bladder noted to be unremarkable on recent CT scan. However pre and post residual volume kidney and bladder ultrasound ordered today for further evaluation. Consider referring patient to urogynecology. #Endometriosis: Patient currently on norethindrone 0.35 mg tablets daily. Patient's mother inquiring about nonnarcotic pain medication, however I do not feel comfortable prescribing this today. Patient needs to bring this up with her newly established PRESCHOOL ASSISTANT PRINCIPAL for further pain management. #Insomnia: Continue hydroxyzine 25 mg tablets daily. #Anxiety: Continue Lexapro 20 mg, Wellbutrin 300 mg, Xanax as needed. Patient educated to replace hydroxyzine for Xanax due to Xanax being too strong for the patient at this time. Patient educated that hydroxyzine may make her tired. #Thrombocytosis: Will be ordering iron studies for further evaluation #Insomnia: Continue hydroxyzine as needed #Difficulty urinating: Ordering kidney and bladder ultrasound. Patient did have a slightly elevated white blood cell count within the emergency department on 09/05/2024 with a level of 11, Additionally patient's neutrophils were noted to be 85.6. Infection less likely on the differential as the patient was previously seen in the ER on 09/05/2024 however cannot be completely ruled out. Repeat CBC demonstrated no evidence of increased white blood cell count which is reassuring. #Endometriosis history: Patient encouraged to call and establish [employer] ASSISTANT PRINCIPAL care around the area. Will have patient sign record release for [facility] PRESCHOOL ASSISTANT PRINCIPAL. #Fatigue: Due to patient's increased platelet, iron studies will be obtained. Patient states that she was told in the past she had been anemic, patient today states that she does take [id number] iron supplementation All questions have been answered to patient's satisfaction. Patient verbalized understanding of diagnosis and treatments explained. Advised to call sooner prior to next visit it any questions/concerns arise. Case discussed with Johnny GUEVARA who reviewed the assessment and plan. Chart, medications, labs, vital signs reviewed. Dictation was accomplished with the use of [employer] voice recognition software, which is prone to medical misidentifications and grammatical errors. This are unintentional and the practitioner does try to identify and correct these, but some could still be present. Please do not hesitate to contact practitioner for clarification. 09/11/2024 Anxiety (ICD-10 - F41.9) Domingo is a pleasant 43-year-old female who presents to the office today as a new patient. The patient does have a past medical history of endometriosis, hypertension and an extremely complex FACETER history. #Abdominal pain: Patient presented on 09/05/2024 at [facility] status post hysterectomy at [facility] about 3 months ago, severe worsening pain that is on the right side of her abdomen, in the right side of her back, buttocks and radiates down the leg. She states that the pain is so severe that it is causing her. She has never had a pain like this before, no loss of bladder or bowel function. Patient was given IV hydromorphone and alprazolam. #Pain Control: Patient will be sent home with gabapentin 100 mg to be utilized as needed for nerve pain, tizanidine 4 mg to butyl eyes for muscle spasms as needed as well as hydroxyzine to utilize as needed for sleep. #Anxiety: Continue Lexapro 20 mg, Wellbutrin 300 mg, Xanax as needed. Patient educated to replace hydroxyzine for Xanax due to Xanax being too strong for the patient at this time. Patient educated that hydroxyzine may make her tired. #Insomnia: Continue hydroxyzine as needed #Difficulty urinating: Obtaining stat CT of the abdomen and pelvis, Patient did have a slightly elevated white blood cell count within the emergency department on 09/05/2024 with a level of 11, Additionally patient's neutrophils were noted to be 85.6. Infection less likely on the differential as the patient was previously seen in the ER on 09/05/2024 however cannot be completely ruled out. #Endometriosis history: Patient encouraged to call and establish [employer] ASS[employer]ANT PRINCIPAL care around the area. Will have patient sign record release for [facility] PRESCHOOL ASSISTANT PRINCIPAL. All questions have been answered to patient's satisfaction. Patient verbalized understanding of diagnosis and treatments explained. Advised to call sooner prior to next visit it any questions/concerns arise. Case discussed with Johnny GUEVARA who reviewed the assessment and plan. Chart, medications, labs, vital signs reviewed. Dictation was accomplished with the use of [employer] voice recognition software, which is prone to medical misidentifications and grammatical errors. This are unintentional and the practitioner does try to identify and correct these, but some could still be present. Please do not hesitate to contact practitioner for clarification. 12/17/2024 Pelvic pain in female (ICD-10 - R10.2) Domingo is a pleasant 43-year-old female who presents for a CPE. #Pain: Continue taking Lyrica 25 mg capsules twice daily as needed for pain. Referring patient to pain management for a further evaluation. #Endometriosis flare?: Patient has been previously prescribed prednisone in the past for inflammation, prescribing patient prednisone burst x 5 days... Ultimately patient is aware that she needs to be seen by pain management, unsure of the entirety of the cause of patient's pain at this time. Most likely at this time includes nerve inflammation from endometriosis or from previous hysterectomy. #Endometriosis: Continue norethindrone 0.5 mg tablets daily, patient encouraged to call her previous [employer] ASSISTANT PRINCIPAL surgeon who performed the hysterectomy for further evaluation. She may need a laparoscopic surgery as her endometriosis may be as her endometriosis may be continuing to spread and be causing her pain. Patient extremely tender upon abdominal exam today. Patient did have a CT scan of her abdomen completed that was overall unremarkable. #Rectal bleeding: Patient denies rectal exam at this time, she is to call the office if this does not improve. Patient encouraged to utilize MiraLAX for softer bowel movements as she has not been having bowel movements more than once a week. #Fatigue: May would not be related to iron deficiency, obtaining new labs #Amylase/lipase: Ordering for patient as she states in the hospital numerous years ago's these values were elevated. #Renal ultrasound: I performed a renal ultrasound due to back pain at prior appointment that was overall unremarkable as well. #Iron studies: Placed today. Patient did have lab work completed back in August that demonstrated a low ferritin level of 10, she is currently taking iron 3 times weekly. #Anxiety: Continue following with psychiatry, patient had her dose of Wellbutrin increased to 400 mg, still taking escitalopram 20 mg tablets. I encouraged patient to call psychiatrist and advocate for Cymbalta as this may help with her nerve pain. #Muscle spasms: Utilize cyclobenzaprine HCL 5 mg tablets as needed. Discontinue ketorolac as this has not been helpful for patient. #Insomnia: Continue hydroxyzine 25 mg tablets as needed. #Abdominal pain: Patient presented on 09/05/2024 at [facility] status post hysterectomy at [facility] about 3 months ago, severe worsening pain that is on the right side of her abdomen, in the right side of her back, buttocks and radiates down the leg. She states that the pain is so severe that it is causing her. She has never had a pain like this before, no loss of bladder or bowel function. Patient was given IV hydromorphone and alprazolam. CT scan of the abdomen and pelvis are unremarkable. 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 Arango office to establish gynecologic care. All questions have been answered to patient's satisfaction. Patient verbalized understanding of diagnosis and treatments explained. Advised to call sooner prior to next visit it any questions/concerns arise. Case discussed with Johnny GUEVARA who reviewed the assessment and plan. Chart, medications, labs, vital signs reviewed. Dictation was accomplished with the use of [employer] voice recognition software, which is prone to medical misidentifications and grammatical errors. This are unintentional and the practitioner does try to identify and correct these, but some could still be present. Please do not hesitate to contact practitioner for clarification. 12/31/2024 Anxiety (ICD-10 - F41.9) Domingo is a pleasant 43-year-old female who presents for a f/u... #Brain fog: Obtaining CT scan of the brain for memory loss and brain fog concern #Pain: Continue taking Lyrica 25 mg capsules twice daily as needed for pain. Pain management informed us that they are no longer taking new patients, will try and find new pain management clinic for patient #Endometriosis: Continue norethindrone 0.5 mg tablets daily, patient encouraged to call her previous [employer] ASSISTANT PRINCIPAL surgeon who performed the hysterectomy for further evaluation. She may need a laparoscopic surgery as her endometriosis may be as her endometriosis may be continuing to spread and be causing her pain. #Rectal bleeding:Resolved, continue to lysing MiraLAX and Colace #Fatigue: May would not be related to iron deficiency, obtaining new labs.. May be related to chronic fatigue from endometriosis #Amylase/lipase: Ordering for patient as she states in the hospital numerous years ago these values were elevated... Pending at this time #Renal ultrasound: I performed a renal ultrasound due to back pain at prior appointment that was overall unremarkable as well. #Iron studies: Pending at this time #Anxiety: Continue following with psychiatry, patient had her dose of Wellbutrin increased to 400 mg, still taking escitalopram 20 mg tablets. I encouraged patient to call psychiatrist and advocate for Cymbalta as this may help with her nerve pain... Has an appointment scheduled the end of the month #Muscle spasms: Utilize cyclobenzaprine HCL 5 mg tablets as needed. Discontinue ketorolac as this has not been helpful for patient. #Insomnia: Continue hydroxyzine 25 mg tablets as needed. #Abdominal pain: Patient presented on 09/05/2024 at [facility] status post hysterectomy at [facility] about 3 months ago, severe worsening pain that is on the right side of her abdomen, in the right side of her back, buttocks and radiates down the leg. She states that the pain is so severe that it is causing her. She has never had a pain like this before, no loss of bladder or bowel function. Patient was given IV hydromorphone and alprazolam. CT scan of the abdomen and pelvis are unremarkable. 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 rAango office to establish gynecologic care... States she has appointment standing for March All questions have been answered to patient's satisfaction. Patient verbalized understanding of diagnosis and treatments explained. Advised to call sooner prior to next visit it any questions/concerns arise. Case discussed with Johnny GUEVARA who reviewed the assessment and plan. Chart, medications, labs, vital signs reviewed. Dictation was accomplished with the use of [employer] voice recognition software, which is prone to medical misidentifications and grammatical errors. This are unintentional and the practitioner does try to identify and correct these, but some could still be present. Please do not hesitate to contact practitioner for clarification. 10/02/2024 Pelvic pain in female (ICD-10 - R10.2) Domingo is a pleasant 43-year-old female who presents to the office today as a new patient. The patient does have a past medical history of endometriosis, hypertension and an extremely complex FACETER history. #Nerve pain: Ordering a EMG on the right lower extremity to assess nerve entrapment. #Abdominal pain: Patient presented on 09/05/2024 at [facility] status post hysterectomy at [facility] about 3 months ago, severe worsening pain that is on the right side of her abdomen, in the right side of her back, buttocks and radiates down the leg. She states that the pain is so severe that it is causing her. She has never had a pain like this before, no loss of bladder or bowel function. Patient was given IV hydromorphone and alprazolam. CT scan of the abdomen and pelvis are unremarkable. #Pain management: For pain management will be sending Lyrica to be utilized as needed for her nerve pain. Ketorolac will be sent to the pharmacy to be utilized for general pain and cyclobenzaprine is to be utilized only for muscle spasms. 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 Arango office to establish gynecologic care. #Endometriosis: Patient currently on norethindrone 0.35 mg tablets daily. Patient's mother inquiring about nonnarcotic pain medication, however I do not feel comfortable prescribing this today. Patient needs to bring this up with her newly established [employer]IP[employer] for further pain management. #Insomnia: Continue hydroxyzine 25 mg tablets daily. #Anxiety: Continue Lexapro 20 mg, Wellbutrin 300 mg, Xanax as needed. Patient educated to replace hydroxyzine for Xanax due to Xanax being too strong for the patient at this time. Patient educated that hydroxyzine may make her tired. Will call Dr. Mendes the patient's psychiatrist and discussed potentially prescribing Cymbalta as the patient may benefit from the dual property of nerve pain and anxiety/depression. #Thrombocytosis: Will be ordering iron studies for further evaluation #Insomnia: Continue hydroxyzine as needed #Endometriosis history: Patient encouraged to call and establish [employer]IP[employer] care around the area. Will have patient sign record release for [facility] [employer] ASS[employer]ANT [employer]IPAL. #Fatigue: Due to patient's increased platelet, iron studies will be obtained. Patient states that she was told in the past she had been anemic, patient today states that she does take [id number] iron supplementation All questions have been answered to patient's satisfaction. Patient verbalized understanding of diagnosis and treatments explained. Advised to call sooner prior to next visit it any questions/concerns arise. Case discussed with Johnny GUEVARA who reviewed the assessment and plan. Chart, medications, labs, vital signs reviewed. Dictation was accomplished with the use of [employer] voice recognition software, which is prone to medical misidentifications and grammatical errors. This are unintentional and the practitioner does try to identify and correct these, but some could still be present. Please do not hesitate to contact practitioner for clarification. 12/17/2024 Anxiety (ICD-10 - F41.9) Domingo is a pleasant 43-year-old female who presents for a CPE. #Pain: Continue taking Lyrica 25 mg capsules twice daily as needed for pain. Referring patient to pain management for a further evaluation. #Endometriosis flare?: Patient has been previously prescribed prednisone in the past for inflammation, prescribing patient prednisone burst x 5 days... Ultimately patient is aware that she needs to be seen by pain management, unsure of the entirety of the cause of patient's pain at this time. Most likely at this time includes nerve inflammation from endometriosis or from previous hysterectomy. #Endometriosis: Continue norethindrone 0.5 mg tablets daily, patient encouraged to call her previous [employer] surgeon who performed the hysterectomy for further evaluation. She may need a laparoscopic surgery as her endometriosis may be as her endometriosis may be continuing to spread and be causing her pain. Patient extremely tender upon abdominal exam today. Patient did have a CT scan of her abdomen completed that was overall unremarkable. #Rectal bleeding: Patient denies rectal exam at this time, she is to call the office if this does not improve. Patient encouraged to utilize MiraLAX for softer bowel movements as she has not been having bowel movements more than once a week. #Fatigue: May would not be related to iron deficiency, obtaining new labs #Amylase/lipase: Ordering for patient as she states in the hospital numerous years ago's these values were elevated. #Renal ultrasound: I performed a renal ultrasound due to back pain at prior appointment that was overall unremarkable as well. #Iron studies: Placed today. Patient did have lab work completed back in August that demonstrated a low ferritin level of 10, she is currently taking iron 3 times weekly. #Anxiety: Continue following with psychiatry, patient had her dose of Wellbutrin increased to 400 mg, still taking escitalopram 20 mg tablets. I encouraged patient to call psychiatrist and advocate for Cymbalta as this may help with her nerve pain. #Muscle spasms: Utilize cyclobenzaprine HCL 5 mg tablets as needed. Discontinue ketorolac as this has not been helpful for patient. #Insomnia: Continue hydroxyzine 25 mg tablets as needed. #Abdominal pain: Patient presented on 09/05/2024 at [facility] status post hysterectomy at [facility] about 3 months ago, severe worsening pain that is on the right side of her abdomen, in the right side of her back, buttocks and radiates down the leg. She states that the pain is so severe that it is causing her. She has never had a pain like this before, no loss of bladder or bowel function. Patient was given IV hydromorphone and alprazolam. CT scan of the abdomen and pelvis are unremarkable. 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 Arango office to establish gynecologic care. All questions have been answered to patient's satisfaction. Patient verbalized understanding of diagnosis and treatments explained. Advised to call sooner prior to next visit it any questions/concerns arise. Case discussed with Johnny GUEVARA who reviewed the assessment and plan. Chart, medications, labs, vital signs reviewed. Dictation was accomplished with the use of [employer] voice recognition software, which is prone to medical misidentifications and grammatical errors. This are unintentional and the practitioner does try to identify and correct these, but some could still be present. Please do not hesitate to contact practitioner for clarification. 09/18/2024 Leg muscle spasm (ICD-10 - M62.838) Domingo is a pleasant 43-year-old female who presents to the office today as a new patient. The patient does have a past medical history of endometriosis, hypertension and an extremely complex FACETER history. #Abdominal pain: Patient presented on 09/05/2024 at [facility] status post hysterectomy at [facility] about 3 months ago, severe worsening pain that is on the right side of her abdomen, in the right side of her back, buttocks and radiates down the leg. She states that the pain is so severe that it is causing her. She has never had a pain like this before, no loss of bladder or bowel function. Patient was given IV hydromorphone and alprazolam. CT scan of the abdomen and pelvis are unremarkable. #Pain management: Prednisone taper will be sent to the pharmacy, she is to utilize tizanidine HCL 4 mg tablets every 4-6 hours as needed for muscle spasms. We will be discontinuing gabapentin 100 mg at this time as the patient had a reaction to this medication. Consider Cymbalta or Lyrica. 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 Arango office to establish gynecologic care. #Difficulty urinating: Urinary bladder noted to be unremarkable on recent CT scan. However pre and post residual volume kidney and bladder ultrasound ordered today for further evaluation. Consider referring patient to urogynecology. #Endometriosis: Patient currently on norethindrone 0.35 mg tablets daily. Patient's mother inquiring about nonnarcotic pain medication, however I do not feel comfortable prescribing this today. Patient needs to bring this up with her newly established [employer]ANT [employer]INCIPAL for further pain management. #Insomnia: Continue hydroxyzine 25 mg tablets daily. #Anxiety: Continue Lexapro 20 mg, Wellbutrin 300 mg, Xanax as needed. Patient educated to replace hydroxyzine for Xanax due to Xanax being too strong for the patient at this time. Patient educated that hydroxyzine may make her tired. #Thrombocytosis: Will be ordering iron studies for further evaluation #Insomnia: Continue hydroxyzine as needed #Difficulty urinating: Ordering kidney and bladder ultrasound. Patient did have a slightly elevated white blood cell count within the emergency department on 09/05/2024 with a level of 11, Additionally patient's neutrophils were noted to be 85.6. Infection less likely on the differential as the patient was previously seen in the ER on 09/05/2024 however cannot be completely ruled out. Repeat CBC demonstrated no evidence of increased white blood cell count which is reassuring. #Endometriosis history: Patient encouraged to call and establish [employer] care around the area. Will have patient sign record release for [facility] PRESCHOOL ASSISTANT PRINCIPAL. #Fatigue: Due to patient's increased platelet, iron studies will be obtained. Patient states that she was told in the past she had been anemic, patient today states that she does take [id number] iron supplementation All questions have been answered to patient's satisfaction. Patient verbalized understanding of diagnosis and treatments explained. Advised to call sooner prior to next visit it any questions/concerns arise. Case discussed with Johnny GUEVARA who reviewed the assessment and plan. Chart, medications, labs, vital signs reviewed. Dictation was accomplished with the use of [employer] voice recognition software, which is prone to medical misidentifications and grammatical errors. This are unintentional and the practitioner does try to identify and correct these, but some could still be present. Please do not hesitate to contact practitioner for clarification. 10/02/2024 Anxiety (ICD-10 - F41.9) Domingo is a pleasant 43-year-old female who presents to the office today as a new patient. The patient does have a past medical history of endometriosis, hypertension and an extremely complex FACETER history. #Nerve pain: Ordering a EMG on the right lower extremity to assess nerve entrapment. #Abdominal pain: Patient presented on 09/05/2024 at [facility] status post hysterectomy at [facility] about 3 months ago, severe worsening pain that is on the right side of her abdomen, in the right side of her back, buttocks and radiates down the leg. She states that the pain is so severe that it is causing her. She has never had a pain like this before, no loss of bladder or bowel function. Patient was given IV hydromorphone and alprazolam. CT scan of the abdomen and pelvis are unremarkable. #Pain management: For pain management will be sending Lyrica to be utilized as needed for her nerve pain. Ketorolac will be sent to the pharmacy to be utilized for general pain and cyclobenzaprine is to be utilized only for muscle spasms. 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 Arango office to establish gynecologic care. #Endometriosis: Patient currently on norethindrone 0.35 mg tablets daily. Patient's mother inquiring about nonnarcotic pain medication, however I do not feel comfortable prescribing this today. Patient needs to bring this up with her newly established [employer]ANT PRINCIPAL for further pain management. #Insomnia: Continue hydroxyzine 25 mg tablets daily. #Anxiety: Continue Lexapro 20 mg, Wellbutrin 300 mg, Xanax as needed. Patient educated to replace hydroxyzine for Xanax due to Xanax being too strong for the patient at this time. Patient educated that hydroxyzine may make her tired. Will call Dr. Mendes the patient's psychiatrist and discussed potentially prescribing Cymbalta as the patient may benefit from the dual property of nerve pain and anxiety/depression. #Thrombocytosis: Will be ordering iron studies for further evaluation #Insomnia: Continue hydroxyzine as needed #Endometriosis history: Patient encouraged to call and establish [employer] care around the area. Will have patient sign record release for [facility] PRESCHOOL ASSISTANT PRINCIPAL. #Fatigue: Due to patient's increased platelet, iron studies will be obtained. Patient states that she was told in the past she had been anemic, patient today states that she does take [id number] iron supplementation All questions have been answered to patient's satisfaction. Patient verbalized understanding of diagnosis and treatments explained. Advised to call sooner prior to next visit it any questions/concerns arise. Case discussed with Johnny GUEVARA who reviewed the assessment and plan. Chart, medications, labs, vital signs reviewed. Dictation was accomplished with the use of [employer] voice recognition software, which is prone to medical misidentifications and grammatical errors. This are unintentional and the practitioner does try to identify and correct these, but some could still be present. Please do not hesitate to contact practitioner for clarification. 09/11/2024 Leg muscle spasm (ICD-10 - M62.838) Domingo is a pleasant 43-year-old female who presents to the office today as a new patient. The patient does have a past medical history of endometriosis, hypertension and an extremely complex FACETER history. #Abdominal pain: Patient presented on 09/05/2024 at [facility] status post hysterectomy at [facility] about 3 months ago, severe worsening pain that is on the right side of her abdomen, in the right side of her back, buttocks and radiates down the leg. She states that the pain is so severe that it is causing her. She has never had a pain like this before, no loss of bladder or bowel function. Patient was given IV hydromorphone and alprazolam. #Pain Control: Patient will be sent home with gabapentin 100 mg to be utilized as needed for nerve pain, tizanidine 4 mg to butyl eyes for muscle spasms as needed as well as hydroxyzine to utilize as needed for sleep. #Anxiety: Continue Lexapro 20 mg, Wellbutrin 300 mg, Xanax as needed. Patient educated to replace hydroxyzine for Xanax due to Xanax being too strong for the patient at this time. Patient educated that hydroxyzine may make her tired. #Insomnia: Continue hydroxyzine as needed #Difficulty urinating: Obtaining stat CT of the abdomen and pelvis, Patient did have a slightly elevated white blood cell count within the emergency department on 09/05/2024 with a level of 11, Additionally patient's neutrophils were noted to be 85.6. Infection less likely on the differential as the patient was previously seen in the ER on 09/05/2024 however cannot be completely ruled out. #Endometriosis history: Patient encouraged to call and establish [employer]IP[employer] care around the area. Will have patient sign record release for [facility] [employer]CHOOL ASSISTANT PRINCIPAL. All questions have been answered to patient's satisfaction. Patient verbalized understanding of diagnosis and treatments explained. Advised to call sooner prior to next visit it any questions/concerns arise. Case discussed with Johnny GUEVARA who reviewed the assessment and plan. Chart, medications, labs, vital signs reviewed. Dictation was accomplished with the use of [employer] voice recognition software, which is prone to medical misidentifications and grammatical errors. This are unintentional and the practitioner does try to identify and correct these, but some could still be present. Please do not hesitate to contact practitioner for clarification. 12/31/2024 Leg muscle spasm (ICD-10 - M62.838) Domingo is a pleasant 43-year-old female who presents for a f/u... #Brain fog: Obtaining CT scan of the brain for memory loss and brain fog concern #Pain: Continue taking Lyrica 25 mg capsules twice daily as needed for pain. Pain management informed us that they are no longer taking new patients, will try and find new pain management clinic for patient #Endometriosis: Continue norethindrone 0.5 mg tablets daily, patient encouraged to call her previous [employer]INCIP[employer] surgeon who performed the hysterectomy for further evaluation. She may need a laparoscopic surgery as her endometriosis may be as her endometriosis may be continuing to spread and be causing her pain. #Rectal bleeding:Resolved, continue to lysing MiraLAX and Colace #Fatigue: May would not be related to iron deficiency, obtaining new labs.. May be related to chronic fatigue from endometriosis #Amylase/lipase: Ordering for patient as she states in the hospital numerous years ago these values were elevated... Pending at this time #Renal ultrasound: I performed a renal ultrasound due to back pain at prior appointment that was overall unremarkable as well. #Iron studies: Pending at this time #Anxiety: Continue following with psychiatry, patient had her dose of Wellbutrin increased to 400 mg, still taking escitalopram 20 mg tablets. I encouraged patient to call psychiatrist and advocate for Cymbalta as this may help with her nerve pain... Has an appointment scheduled the end of the month #Muscle spasms: Utilize cyclobenzaprine HCL 5 mg tablets as needed. Discontinue ketorolac as this has not been helpful for patient. #Insomnia: Continue hydroxyzine 25 mg tablets as needed. #Abdominal pain: Patient presented on 09/05/2024 at [facility] status post hysterectomy at [facility] about 3 months ago, severe worsening pain that is on the right side of her abdomen, in the right side of her back, buttocks and radiates down the leg. She states that the pain is so severe that it is causing her. She has never had a pain like this before, no loss of bladder or bowel function. Patient was given IV hydromorphone and alprazolam. CT scan of the abdomen and pelvis are unremarkable. 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 Arango office to establish gynecologic care... States she has appointment standing for March All questions have been answered to patient's satisfaction. Patient verbalized understanding of diagnosis and treatments explained. Advised to call sooner prior to next visit it any questions/concerns arise. Case discussed with Johnny GUEVARA who reviewed the assessment and plan. Chart, medications, labs, vital signs reviewed. Dictation was accomplished with the use of [employer] voice recognition software, which is prone to medical misidentifications and grammatical errors. This are unintentional and the practitioner does try to identify and correct these, but some could still be present. Please do not hesitate to contact practitioner for clarification. 10/02/2024 Leg muscle spasm (ICD-10 - M62.838) Domingo is a pleasant 43-year-old female who presents to the office today as a new patient. The patient does have a past medical history of endometriosis, hypertension and an extremely complex FACETER history. #Nerve pain: Ordering a EMG on the right lower extremity to assess nerve entrapment. #Abdominal pain: Patient presented on 09/05/2024 at [facility] status post hysterectomy at [facility] about 3 months ago, severe worsening pain that is on the right side of her abdomen, in the right side of her back, buttocks and radiates down the leg. She states that the pain is so severe that it is causing her. She has never had a pain like this before, no loss of bladder or bowel function. Patient was given IV hydromorphone and alprazolam. CT scan of the abdomen and pelvis are unremarkable. #Pain management: For pain management will be sending Lyrica to be utilized as needed for her nerve pain. Ketorolac will be sent to the pharmacy to be utilized for general pain and cyclobenzaprine is to be utilized only for muscle spasms. 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 Arango office to establish gynecologic care. #Endometriosis: Patient currently on norethindrone 0.35 mg tablets daily. Patient's mother inquiring about nonnarcotic pain medication, however I do not feel comfortable prescribing this today. Patient needs to bring this up with her newly established [employer] ASSISTANT PRINCIPAL for further pain management. #Insomnia: Continue hydroxyzine 25 mg tablets daily. #Anxiety: Continue Lexapro 20 mg, Wellbutrin 300 mg, Xanax as needed. Patient educated to replace hydroxyzine for Xanax due to Xanax being too strong for the patient at this time. Patient educated that hydroxyzine may make her tired. Will call Dr. Mendes the patient's psychiatrist and discussed potentially prescribing Cymbalta as the patient may benefit from the dual property of nerve pain and anxiety/depression. #Thrombocytosis: Will be ordering iron studies for further evaluation #Insomnia: Continue hydroxyzine as needed #Endometriosis history: Patient encouraged to call and establish [employer]IP[employer] care around the area. Will have patient sign record release for [facility] [employer]CHOOL ASSISTANT PRINCIPAL. #Fatigue: Due to patient's increased platelet, iron studies will be obtained. Patient states that she was told in the past she had been anemic, patient today states that she does take [id number] iron supplementation All questions have been answered to patient's satisfaction. Patient verbalized understanding of diagnosis and treatments explained. Advised to call sooner prior to next visit it any questions/concerns arise. Case discussed with Johnny GUEVARA who reviewed the assessment and plan. Chart, medications, labs, vital signs reviewed. Dictation was accomplished with the use of [employer] voice recognition software, which is prone to medical misidentifications and grammatical errors. This are unintentional and the practitioner does try to identify and correct these, but some could still be present. Please do not hesitate to contact practitioner for clarification. 12/31/2024 Anemia, unspecified type (ICD-10 - D64.9) Domingo is a pleasant 43-year-old female who presents for a f/u... #Brain fog: Obtaining CT scan of the brain for memory loss and brain fog concern #Pain: Continue taking Lyrica 25 mg capsules twice daily as needed for pain. Pain management informed us that they are no longer taking new patients, will try and find new pain management clinic for patient #Endometriosis: Continue norethindrone 0.5 mg tablets daily, patient encouraged to call her previous [employer] ASS[employer] PRINCIP[employer] surgeon who performed the hysterectomy for further evaluation. She may need a laparoscopic surgery as her endometriosis may be as her endometriosis may be continuing to spread and be causing her pain. #Rectal bleeding:Resolved, continue to lysing MiraLAX and Colace #Fatigue: May would not be related to iron deficiency, obtaining new labs.. May be related to chronic fatigue from endometriosis #Amylase/lipase: Ordering for patient as she states in the hospital numerous years ago these values were elevated... Pending at this time #Renal ultrasound: I performed a renal ultrasound due to back pain at prior appointment that was overall unremarkable as well. #Iron studies: Pending at this time #Anxiety: Continue following with psychiatry, patient had her dose of Wellbutrin increased to 400 mg, still taking escitalopram 20 mg tablets. I encouraged patient to call psychiatrist and advocate for Cymbalta as this may help with her nerve pain... Has an appointment scheduled the end of the month #Muscle spasms: Utilize cyclobenzaprine HCL 5 mg tablets as needed. Discontinue ketorolac as this has not been helpful for patient. #Insomnia: Continue hydroxyzine 25 mg tablets as needed. #Abdominal pain: Patient presented on 09/05/2024 at [facility] status post hysterectomy at [facility] about 3 months ago, severe worsening pain that is on the right side of her abdomen, in the right side of her back, buttocks and radiates down the leg. She states that the pain is so severe that it is causing her. She has never had a pain like this before, no loss of bladder or bowel function. Patient was given IV hydromorphone and alprazolam. CT scan of the abdomen and pelvis are unremarkable. 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 Arango office to establish gynecologic care... States she has appointment standing for March All questions have been answered to patient's satisfaction. Patient verbalized understanding of diagnosis and treatments explained. Advised to call sooner prior to next visit it any questions/concerns arise. Case discussed with Johnny GUEVARA who reviewed the assessment and plan. Chart, medications, labs, vital signs reviewed. Dictation was accomplished with the use of [employer] voice recognition software, which is prone to medical misidentifications and grammatical errors. This are unintentional and the practitioner does try to identify and correct these, but some could still be present. Please do not hesitate to contact practitioner for clarification. 12/17/2024 Leg muscle spasm (ICD-10 - M62.838) Domingo is a pleasant 43-year-old female who presents for a CPE. #Pain: Continue taking Lyrica 25 mg capsules twice daily as needed for pain. Referring patient to pain management for a further evaluation. #Endometriosis flare?: Patient has been previously prescribed prednisone in the past for inflammation, prescribing patient prednisone burst x 5 days... Ultimately patient is aware that she needs to be seen by pain management, unsure of the entirety of the cause of patient's pain at this time. Most likely at this time includes nerve inflammation from endometriosis or from previous hysterectomy. #Endometriosis: Continue norethindrone 0.5 mg tablets daily, patient encouraged to call her previous [employer] surgeon who performed the hysterectomy for further evaluation. She may need a laparoscopic surgery as her endometriosis may be as her endometriosis may be continuing to spread and be causing her pain. Patient extremely tender upon abdominal exam today. Patient did have a CT scan of her abdomen completed that was overall unremarkable. #Rectal bleeding: Patient denies rectal exam at this time, she is to call the office if this does not improve. Patient encouraged to utilize MiraLAX for softer bowel movements as she has not been having bowel movements more than once a week. #Fatigue: May would not be related to iron deficiency, obtaining new labs #Amylase/lipase: Ordering for patient as she states in the hospital numerous years ago's these values were elevated. #Renal ultrasound: I performed a renal ultrasound due to back pain at prior appointment that was overall unremarkable as well. #Iron studies: Placed today. Patient did have lab work completed back in August that demonstrated a low ferritin level of 10, she is currently taking iron 3 times weekly. #Anxiety: Continue following with psychiatry, patient had her dose of Wellbutrin increased to 400 mg, still taking escitalopram 20 mg tablets. I encouraged patient to call psychiatrist and advocate for Cymbalta as this may help with her nerve pain. #Muscle spasms: Utilize cyclobenzaprine HCL 5 mg tablets as needed. Discontinue ketorolac as this has not been helpful for patient. #Insomnia: Continue hydroxyzine 25 mg tablets as needed. #Abdominal pain: Patient presented on 09/05/2024 at [facility] status post hysterectomy at [facility] about 3 months ago, severe worsening pain that is on the right side of her abdomen, in the right side of her back, buttocks and radiates down the leg. She states that the pain is so severe that it is causing her. She has never had a pain like this before, no loss of bladder or bowel function. Patient was given IV hydromorphone and alprazolam. CT scan of the abdomen and pelvis are unremarkable. 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 Arango office to establish gynecologic care. All questions have been answered to patient's satisfaction. Patient verbalized understanding of diagnosis and treatments explained. Advised to call sooner prior to next visit it any questions/concerns arise. Case discussed with Johnny GUEVARA who reviewed the assessment and plan. Chart, medications, labs, vital signs reviewed. Dictation was accomplished with the use of [employer] voice recognition software, which is prone to medical misidentifications and grammatical errors. This are unintentional and the practitioner does try to identify and correct these, but some could still be present. Please do not hesitate to contact practitioner for clarification. 12/17/2024 Anemia, unspecified type (ICD-10 - D64.9) Domingo is a pleasant 43-year-old female who presents for a CPE. #Pain: Continue taking Lyrica 25 mg capsules twice daily as needed for pain. Referring patient to pain management for a further evaluation. #Endometriosis flare?: Patient has been previously prescribed prednisone in the past for inflammation, prescribing patient prednisone burst x 5 days... Ultimately patient is aware that she needs to be seen by pain management, unsure of the entirety of the cause of patient's pain at this time. Most likely at this time includes nerve inflammation from endometriosis or from previous hysterectomy. #Endometriosis: Continue norethindrone 0.5 mg tablets daily, patient encouraged to call her previous [employer] surgeon who performed the hysterectomy for further evaluation. She may need a laparoscopic surgery as her endometriosis may be as her endometriosis may be continuing to spread and be causing her pain. Patient extremely tender upon abdominal exam today. Patient did have a CT scan of her abdomen completed that was overall unremarkable. #Rectal bleeding: Patient denies rectal exam at this time, she is to call the office if this does not improve. Patient encouraged to utilize MiraLAX for softer bowel movements as she has not been having bowel movements more than once a week. #Fatigue: May would not be related to iron deficiency, obtaining new labs #Amylase/lipase: Ordering for patient as she states in the hospital numerous years ago's these values were elevated. #Renal ultrasound: I performed a renal ultrasound due to back pain at prior appointment that was overall unremarkable as well. #Iron studies: Placed today. Patient did have lab work completed back in August that demonstrated a low ferritin level of 10, she is currently taking iron 3 times weekly. #Anxiety: Continue following with psychiatry, patient had her dose of Wellbutrin increased to 400 mg, still taking escitalopram 20 mg tablets. I encouraged patient to call psychiatrist and advocate for Cymbalta as this may help with her nerve pain. #Muscle spasms: Utilize cyclobenzaprine HCL 5 mg tablets as needed. Discontinue ketorolac as this has not been helpful for patient. #Insomnia: Continue hydroxyzine 25 mg tablets as needed. #Abdominal pain: Patient presented on 09/05/2024 at [facility] status post hysterectomy at [facility] about 3 months ago, severe worsening pain that is on the right side of her abdomen, in the right side of her back, buttocks and radiates down the leg. She states that the pain is so severe that it is causing her. She has never had a pain like this before, no loss of bladder or bowel function. Patient was given IV hydromorphone and alprazolam. CT scan of the abdomen and pelvis are unremarkable. 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 Arango office to establish gynecologic care. All questions have been answered to patient's satisfaction. Patient verbalized understanding of diagnosis and treatments explained. Advised to call sooner prior to next visit it any questions/concerns arise. Case discussed with Johnny GUEVARA who reviewed the assessment and plan. Chart, medications, labs, vital signs reviewed. Dictation was accomplished with the use of [employer] voice recognition software, which is prone to medical misidentifications and grammatical errors. This are unintentional and the practitioner does try to identify and correct these, but some could still be present. Please do not hesitate to contact practitioner for clarification. 09/18/2024 Anemia, unspecified type (ICD-10 - D64.9) Domingo is a pleasant 43-year-old female who presents to the office today as a new patient. The patient does have a past medical history of endometriosis, hypertension and an extremely complex FACETER history. #Abdominal pain: Patient presented on 09/05/2024 at [facility] status post hysterectomy at [facility] about 3 months ago, severe worsening pain that is on the right side of her abdomen, in the right side of her back, buttocks and radiates down the leg. She states that the pain is so severe that it is causing her. She has never had a pain like this before, no loss of bladder or bowel function. Patient was given IV hydromorphone and alprazolam. CT scan of the abdomen and pelvis are unremarkable. #Pain management: Prednisone taper will be sent to the pharmacy, she is to utilize tizanidine HCL 4 mg tablets every 4-6 hours as needed for muscle spasms. We will be discontinuing gabapentin 100 mg at this time as the patient had a reaction to this medication. Consider Cymbalta or Lyrica. 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 Arango office to establish gynecologic care. #Difficulty urinating: Urinary bladder noted to be unremarkable on recent CT scan. However pre and post residual volume kidney and bladder ultrasound ordered today for further evaluation. Consider referring patient to urogynecology. #Endometriosis: Patient currently on norethindrone 0.35 mg tablets daily. Patient's mother inquiring about nonnarcotic pain medication, however I do not feel comfortable prescribing this today. Patient needs to bring this up with her newly established [employer] for further pain management. #Insomnia: Continue hydroxyzine 25 mg tablets daily. #Anxiety: Continue Lexapro 20 mg, Wellbutrin 300 mg, Xanax as needed. Patient educated to replace hydroxyzine for Xanax due to Xanax being too strong for the patient at this time. Patient educated that hydroxyzine may make her tired. #Thrombocytosis: Will be ordering iron studies for further evaluation #Insomnia: Continue hydroxyzine as needed #Difficulty urinating: Ordering kidney and bladder ultrasound. Patient did have a slightly elevated white blood cell count within the emergency department on 09/05/2024 with a level of 11, Additionally patient's neutrophils were noted to be 85.6. Infection less likely on the differential as the patient was previously seen in the ER on 09/05/2024 however cannot be completely ruled out. Repeat CBC demonstrated no evidence of increased white blood cell count which is reassuring. #Endometriosis history: Patient encouraged to call and establish [employer] care around the area. Will have patient sign record release for [facility] [employer]ANT [employer]AL. #Fatigue: Due to patient's increased platelet, iron studies will be obtained. Patient states that she was told in the past she had been anemic, patient today states that she does take [id number] iron supplementation All questions have been answered to patient's satisfaction. Patient verbalized understanding of diagnosis and treatments explained. Advised to call sooner prior to next visit it any questions/concerns arise. Case discussed with Johnny GUEVARA who reviewed the assessment and plan. Chart, medications, labs, vital signs reviewed. Dictation was accomplished with the use of [employer] voice recognition software, which is prone to medical misidentifications and grammatical errors. This are unintentional and the practitioner does try to identify and correct these, but some could still be present. Please do not hesitate to contact practitioner for clarification. 10/02/2024 Anemia, unspecified type (ICD-10 - D64.9) Domingo is a pleasant 43-year-old female who presents to the office today as a new patient. The patient does have a past medical history of endometriosis, hypertension and an extremely complex FACETER history. #Nerve pain: Ordering a EMG on the right lower extremity to assess nerve entrapment. #Abdominal pain: Patient presented on 09/05/2024 at [facility] status post hysterectomy at [facility] about 3 months ago, severe worsening pain that is on the right side of her abdomen, in the right side of her back, buttocks and radiates down the leg. She states that the pain is so severe that it is causing her. She has never had a pain like this before, no loss of bladder or bowel function. Patient was given IV hydromorphone and alprazolam. CT scan of the abdomen and pelvis are unremarkable. #Pain management: For pain management will be sending Lyrica to be utilized as needed for her nerve pain. Ketorolac will be sent to the pharmacy to be utilized for general pain and cyclobenzaprine is to be utilized only for muscle spasms. 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 Arango office to establish gynecologic care. #Endometriosis: Patient currently on norethindrone 0.35 mg tablets daily. Patient's mother inquiring about nonnarcotic pain medication, however I do not feel comfortable prescribing this today. Patient needs to bring this up with her newly established [employer]AL for further pain management. #Insomnia: Continue hydroxyzine 25 mg tablets daily. #Anxiety: Continue Lexapro 20 mg, Wellbutrin 300 mg, Xanax as needed. Patient educated to replace hydroxyzine for Xanax due to Xanax being too strong for the patient at this time. Patient educated that hydroxyzine may make her tired. Will call Dr. Mendes the patient's psychiatrist and discussed potentially prescribing Cymbalta as the patient may benefit from the dual property of nerve pain and anxiety/depression. #Thrombocytosis: Will be ordering iron studies for further evaluation #Insomnia: Continue hydroxyzine as needed #Endometriosis history: Patient encouraged to call and establish [employer] care around the area. Will have patient sign record release for [facility] [employer] ASS[employer]INCIPAL. #Fatigue: Due to patient's increased platelet, iron studies will be obtained. Patient states that she was told in the past she had been anemic, patient today states that she does take [id number] iron supplementation All questions have been answered to patient's satisfaction. Patient verbalized understanding of diagnosis and treatments explained. Advised to call sooner prior to next visit it any questions/concerns arise. Case discussed with Johnny GUEVARA who reviewed the assessment and plan. Chart, medications, labs, vital signs reviewed. Dictation was accomplished with the use of [employer] voice recognition software, which is prone to medical misidentifications and grammatical errors. This are unintentional and the practitioner does try to identify and correct these, but some could still be present. Please do not hesitate to contact practitioner for clarification. 12/31/2024 Difficulty urinating (ICD-10 - R39.198) Domingo is a pleasant 43-year-old female who presents for a f/u... #Brain fog: Obtaining CT scan of the brain for memory loss and brain fog concern #Pain: Continue taking Lyrica 25 mg capsules twice daily as needed for pain. Pain management informed us that they are no longer taking new patients, will try and find new pain management clinic for patient #Endometriosis: Continue norethindrone 0.5 mg tablets daily, patient encouraged to call her previous [employer] surgeon who performed the hysterectomy for further evaluation. She may need a laparoscopic surgery as her endometriosis may be as her endometriosis may be continuing to spread and be causing her pain. #Rectal bleeding:Resolved, continue to lysing MiraLAX and Colace #Fatigue: May would not be related to iron deficiency, obtaining new labs.. May be related to chronic fatigue from endometriosis #Amylase/lipase: Ordering for patient as she states in the hospital numerous years ago these values were elevated... Pending at this time #Renal ultrasound: I performed a renal ultrasound due to back pain at prior appointment that was overall unremarkable as well. #Iron studies: Pending at this time #Anxiety: Continue following with psychiatry, patient had her dose of Wellbutrin increased to 400 mg, still taking escitalopram 20 mg tablets. I encouraged patient to call psychiatrist and advocate for Cymbalta as this may help with her nerve pain... Has an appointment scheduled the end of the month #Muscle spasms: Utilize cyclobenzaprine HCL 5 mg tablets as needed. Discontinue ketorolac as this has not been helpful for patient. #Insomnia: Continue hydroxyzine 25 mg tablets as needed. #Abdominal pain: Patient presented on 09/05/2024 at [facility] status post hysterectomy at [facility] about 3 months ago, severe worsening pain that is on the right side of her abdomen, in the right side of her back, buttocks and radiates down the leg. She states that the pain is so severe that it is causing her. She has never had a pain like this before, no loss of bladder or bowel function. Patient was given IV hydromorphone and alprazolam. CT scan of the abdomen and pelvis are unremarkable. 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 Arango office to establish gynecologic care... States she has appointment standing for March All questions have been answered to patient's satisfaction. Patient verbalized understanding of diagnosis and treatments explained. Advised to call sooner prior to next visit it any questions/concerns arise. Case discussed with Johnny GUEVARA who reviewed the assessment and plan. Chart, medications, labs, vital signs reviewed. Dictation was accomplished with the use of [employer] voice recognition software, which is prone to medical misidentifications and grammatical errors. This are unintentional and the practitioner does try to identify and correct these, but some could still be present. Please do not hesitate to contact practitioner for clarification. 10/02/2024 Difficulty urinating (ICD-10 - R39.198) Domingo is a pleasant 43-year-old female who presents to the office today as a new patient. The patient does have a past medical history of endometriosis, hypertension and an extremely complex FACETER history. #Nerve pain: Ordering a EMG on the right lower extremity to assess nerve entrapment. #Abdominal pain: Patient presented on 09/05/2024 at [facility] status post hysterectomy at [facility] about 3 months ago, severe worsening pain that is on the right side of her abdomen, in the right side of her back, buttocks and radiates down the leg. She states that the pain is so severe that it is causing her. She has never had a pain like this before, no loss of bladder or bowel function. Patient was given IV hydromorphone and alprazolam. CT scan of the abdomen and pelvis are unremarkable. #Pain management: For pain management will be sending Irenea to be utilized as needed for her nerve pain. Ketorolac will be sent to the pharmacy to be utilized for general pain and cyclobenzaprine is to be utilized only for muscle spasms. 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 Arango office to establish gynecologic care. #Endometriosis: Patient currently on norethindrone 0.35 mg tablets daily. Patient's mother inquiring about nonnarcotic pain medication, however I do not feel comfortable prescribing this today. Patient needs to bring this up with her newly established [employer]AL for further pain management. #Insomnia: Continue hydroxyzine 25 mg tablets daily. #Anxiety: Continue Lexapro 20 mg, Wellbutrin 300 mg, Xanax as needed. Patient educated to replace hydroxyzine for Xanax due to Xanax being too strong for the patient at this time. Patient educated that hydroxyzine may make her tired. Will call Dr. Mendes the patient's psychiatrist and discussed potentially prescribing Cymbalta as the patient may benefit from the dual property of nerve pain and anxiety/depression. #Thrombocytosis: Will be ordering iron studies for further evaluation #Insomnia: Continue hydroxyzine as needed #Endometriosis history: Patient encouraged to call and establish [employer] care around the area. Will have patient sign record release for [facility] [employer] ASS[employer]ANT [employer]INCIPAL. #Fatigue: Due to patient's increased platelet, iron studies will be obtained. Patient states that she was told in the past she had been anemic, patient today states that she does take [id number] iron supplementation All questions have been answered to patient's satisfaction. Patient verbalized understanding of diagnosis and treatments explained. Advised to call sooner prior to next visit it any questions/concerns arise. Case discussed with Johnny GUEVARA who reviewed the assessment and plan. Chart, medications, labs, vital signs reviewed. Dictation was accomplished with the use of [employer] voice recognition software, which is prone to medical misidentifications and grammatical errors. This are unintentional and the practitioner does try to identify and correct these, but some could still be present. Please do not hesitate to contact practitioner for clarification. 09/18/2024 Difficulty urinating (ICD-10 - R39.198) Domingo is a pleasant 43-year-old female who presents to the office today as a new patient. The patient does have a past medical history of endometriosis, hypertension and an extremely complex FACETER history. #Abdominal pain: Patient presented on 09/05/2024 at [facility] status post hysterectomy at [facility] about 3 months ago, severe worsening pain that is on the right side of her abdomen, in the right side of her back, buttocks and radiates down the leg. She states that the pain is so severe that it is causing her. She has never had a pain like this before, no loss of bladder or bowel function. Patient was given IV hydromorphone and alprazolam. CT scan of the abdomen and pelvis are unremarkable. #Pain management: Prednisone taper will be sent to the pharmacy, she is to utilize tizanidine HCL 4 mg tablets every 4-6 hours as needed for muscle spasms. We will be discontinuing gabapentin 100 mg at this time as the patient had a reaction to this medication. Consider Cymbalta or Lyrica. 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 Arango office to establish gynecologic care. #Difficulty urinating: Urinary bladder noted to be unremarkable on recent CT scan. However pre and post residual volume kidney and bladder ultrasound ordered today for further evaluation. Consider referring patient to urogynecology. #Endometriosis: Patient currently on norethindrone 0.35 mg tablets daily. Patient's mother inquiring about nonnarcotic pain medication, however I do not feel comfortable prescribing this today. Patient needs to bring this up with her newly established [employer] PRINCIPAL for further pain management. #Insomnia: Continue hydroxyzine 25 mg tablets daily. #Anxiety: Continue Lexapro 20 mg, Wellbutrin 300 mg, Xanax as needed. Patient educated to replace hydroxyzine for Xanax due to Xanax being too strong for the patient at this time. Patient educated that hydroxyzine may make her tired. #Thrombocytosis: Will be ordering iron studies for further evaluation #Insomnia: Continue hydroxyzine as needed #Difficulty urinating: Ordering kidney and bladder ultrasound. Patient did have a slightly elevated white blood cell count within the emergency department on 09/05/2024 with a level of 11, Additionally patient's neutrophils were noted to be 85.6. Infection less likely on the differential as the patient was previously seen in the ER on 09/05/2024 however cannot be completely ruled out. Repeat CBC demonstrated no evidence of increased white blood cell count which is reassuring. #Endometriosis history: Patient encouraged to call and establish [employer] PRINCIP[employer] care around the area. Will have patient sign record release for [facility] [employer]CHOOL ASSISTANT PRINCIPAL. #Fatigue: Due to patient's increased platelet, iron studies will be obtained. Patient states that she was told in the past she had been anemic, patient today states that she does take [id number] iron supplementation All questions have been answered to patient's satisfaction. Patient verbalized understanding of diagnosis and treatments explained. Advised to call sooner prior to next visit it any questions/concerns arise. Case discussed with Johnny GUEVARA who reviewed the assessment and plan. Chart, medications, labs, vital signs reviewed. Dictation was accomplished with the use of [employer] voice recognition software, which is prone to medical misidentifications and grammatical errors. This are unintentional and the practitioner does try to identify and correct these, but some could still be present. Please do not hesitate to contact practitioner for clarification. 12/31/2024 Fatigue, unspecified type (ICD-10 - R53.83) Domingo is a pleasant 43-year-old female who presents for a f/u... #Brain fog: Obtaining CT scan of the brain for memory loss and brain fog concern #Pain: Continue taking Lyrica 25 mg capsules twice daily as needed for pain. Pain management informed us that they are no longer taking new patients, will try and find new pain management clinic for patient #Endometriosis: Continue norethindrone 0.5 mg tablets daily, patient encouraged to call her previous [employer] surgeon who performed the hysterectomy for further evaluation. She may need a laparoscopic surgery as her endometriosis may be as her endometriosis may be continuing to spread and be causing her pain. #Rectal bleeding:Resolved, continue to lysing MiraLAX and Colace #Fatigue: May would not be related to iron deficiency, obtaining new labs.. May be related to chronic fatigue from endometriosis #Amylase/lipase: Ordering for patient as she states in the hospital numerous years ago these values were elevated... Pending at this time #Renal ultrasound: I performed a renal ultrasound due to back pain at prior appointment that was overall unremarkable as well. #Iron studies: Pending at this time #Anxiety: Continue following with psychiatry, patient had her dose of Wellbutrin increased to 400 mg, still taking escitalopram 20 mg tablets. I encouraged patient to call psychiatrist and advocate for Cymbalta as this may help with her nerve pain... Has an appointment scheduled the end of the month #Muscle spasms: Utilize cyclobenzaprine HCL 5 mg tablets as needed. Discontinue ketorolac as this has not been helpful for patient. #Insomnia: Continue hydroxyzine 25 mg tablets as needed. #Abdominal pain: Patient presented on 09/05/2024 at [facility] status post hysterectomy at [facility] about 3 months ago, severe worsening pain that is on the right side of her abdomen, in the right side of her back, buttocks and radiates down the leg. She states that the pain is so severe that it is causing her. She has never had a pain like this before, no loss of bladder or bowel function. Patient was given IV hydromorphone and alprazolam. CT scan of the abdomen and pelvis are unremarkable. 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 Arango office to establish gynecologic care... States she has appointment standing for March All questions have been answered to patient's satisfaction. Patient verbalized understanding of diagnosis and treatments explained. Advised to call sooner prior to next visit it any questions/concerns arise. Case discussed with Johnny GUEVARA who reviewed the assessment and plan. Chart, medications, labs, vital signs reviewed. Dictation was accomplished with the use of [employer] voice recognition software, which is prone to medical misidentifications and grammatical errors. This are unintentional and the practitioner does try to identify and correct these, but some could still be present. Please do not hesitate to contact practitioner for clarification. 12/17/2024 Difficulty urinating (ICD-10 - R39.198) Domingo is a pleasant 43-year-old female who presents for a CPE. #Pain: Continue taking Lyrica 25 mg capsules twice daily as needed for pain. Referring patient to pain management for a further evaluation. #Endometriosis flare?: Patient has been previously prescribed prednisone in the past for inflammation, prescribing patient prednisone burst x 5 days... Ultimately patient is aware that she needs to be seen by pain management, unsure of the entirety of the cause of patient's pain at this time. Most likely at this time includes nerve inflammation from endometriosis or from previous hysterectomy. #Endometriosis: Continue norethindrone 0.5 mg tablets daily, patient encouraged to call her previous [employer] surgeon who performed the hysterectomy for further evaluation. She may need a laparoscopic surgery as her endometriosis may be as her endometriosis may be continuing to spread and be causing her pain. Patient extremely tender upon abdominal exam today. Patient did have a CT scan of her abdomen completed that was overall unremarkable. #Rectal bleeding: Patient denies rectal exam at this time, she is to call the office if this does not improve. Patient encouraged to utilize MiraLAX for softer bowel movements as she has not been having bowel movements more than once a week. #Fatigue: May would not be related to iron deficiency, obtaining new labs #Amylase/lipase: Ordering for patient as she states in the hospital numerous years ago's these values were elevated. #Renal ultrasound: I performed a renal ultrasound due to back pain at prior appointment that was overall unremarkable as well. #Iron studies: Placed today. Patient did have lab work completed back in August that demonstrated a low ferritin level of 10, she is currently taking iron 3 times weekly. #Anxiety: Continue following with psychiatry, patient had her dose of Wellbutrin increased to 400 mg, still taking escitalopram 20 mg tablets. I encouraged patient to call psychiatrist and advocate for Cymbalta as this may help with her nerve pain. #Muscle spasms: Utilize cyclobenzaprine HCL 5 mg tablets as needed. Discontinue ketorolac as this has not been helpful for patient. #Insomnia: Continue hydroxyzine 25 mg tablets as needed. #Abdominal pain: Patient presented on 09/05/2024 at [facility] status post hysterectomy at [facility] about 3 months ago, severe worsening pain that is on the right side of her abdomen, in the right side of her back, buttocks and radiates down the leg. She states that the pain is so severe that it is causing her. She has never had a pain like this before, no loss of bladder or bowel function. Patient was given IV hydromorphone and alprazolam. CT scan of the abdomen and pelvis are unremarkable. 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 Arango office to establish gynecologic care. All questions have been answered to patient's satisfaction. Patient verbalized understanding of diagnosis and treatments explained. Advised to call sooner prior to next visit it any questions/concerns arise. Case discussed with Johnny GUEVARA who reviewed the assessment and plan. Chart, medications, labs, vital signs reviewed. Dictation was accomplished with the use of [employer] voice recognition software, which is prone to medical misidentifications and grammatical errors. This are unintentional and the practitioner does try to identify and correct these, but some could still be present. Please do not hesitate to contact practitioner for clarification. 12/17/2024 Fatigue, unspecified type (ICD-10 - R53.83) Domingo is a pleasant 43-year-old female who presents for a CPE. #Pain: Continue taking Lyrica 25 mg capsules twice daily as needed for pain. Referring patient to pain management for a further evaluation. #Endometriosis flare?: Patient has been previously prescribed prednisone in the past for inflammation, prescribing patient prednisone burst x 5 days... Ultimately patient is aware that she needs to be seen by pain management, unsure of the entirety of the cause of patient's pain at this time. Most likely at this time includes nerve inflammation from endometriosis or from previous hysterectomy. #Endometriosis: Continue norethindrone 0.5 mg tablets daily, patient encouraged to call her previous [employer] surgeon who performed the hysterectomy for further evaluation. She may need a laparoscopic surgery as her endometriosis may be as her endometriosis may be continuing to spread and be causing her pain. Patient extremely tender upon abdominal exam today. Patient did have a CT scan of her abdomen completed that was overall unremarkable. #Rectal bleeding: Patient denies rectal exam at this time, she is to call the office if this does not improve. Patient encouraged to utilize MiraLAX for softer bowel movements as she has not been having bowel movements more than once a week. #Fatigue: May would not be related to iron deficiency, obtaining new labs #Amylase/lipase: Ordering for patient as she states in the hospital numerous years ago's these values were elevated. #Renal ultrasound: I performed a renal ultrasound due to back pain at prior appointment that was overall unremarkable as well. #Iron studies: Placed today. Patient did have lab work completed back in August that demonstrated a low ferritin level of 10, she is currently taking iron 3 times weekly. #Anxiety: Continue following with psychiatry, patient had her dose of Wellbutrin increased to 400 mg, still taking escitalopram 20 mg tablets. I encouraged patient to call psychiatrist and advocate for Cymbalta as this may help with her nerve pain. #Muscle spasms: Utilize cyclobenzaprine HCL 5 mg tablets as needed. Discontinue ketorolac as this has not been helpful for patient. #Insomnia: Continue hydroxyzine 25 mg tablets as needed. #Abdominal pain: Patient presented on 09/05/2024 at [facility] status post hysterectomy at [facility] about 3 months ago, severe worsening pain that is on the right side of her abdomen, in the right side of her back, buttocks and radiates down the leg. She states that the pain is so severe that it is causing her. She has never had a pain like this before, no loss of bladder or bowel function. Patient was given IV hydromorphone and alprazolam. CT scan of the abdomen and pelvis are unremarkable. 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 Arango office to establish gynecologic care. All questions have been answered to patient's satisfaction. Patient verbalized understanding of diagnosis and treatments explained. Advised to call sooner prior to next visit it any questions/concerns arise. Case discussed with Johnny GUEVARA who reviewed the assessment and plan. Chart, medications, labs, vital signs reviewed. Dictation was accomplished with the use of [employer] voice recognition software, which is prone to medical misidentifications and grammatical errors. This are unintentional and the practitioner does try to identify and correct these, but some could still be present. Please do not hesitate to contact practitioner for clarification. 12/31/2024 Joint inflammation (ICD-10 - M19.90) Domingo is a pleasant 43-year-old female who presents for a f/u... #Brain fog: Obtaining CT scan of the brain for memory loss and brain fog concern #Pain: Continue taking Lyrica 25 mg capsules twice daily as needed for pain. Pain management informed us that they are no longer taking new patients, will try and find new pain management clinic for patient #Endometriosis: Continue norethindrone 0.5 mg tablets daily, patient encouraged to call her previous [employer] surgeon who performed the hysterectomy for further evaluation. She may need a laparoscopic surgery as her endometriosis may be as her endometriosis may be continuing to spread and be causing her pain. #Rectal bleeding:Resolved, continue to lysing MiraLAX and Colace #Fatigue: May would not be related to iron deficiency, obtaining new labs.. May be related to chronic fatigue from endometriosis #Amylase/lipase: Ordering for patient as she states in the hospital numerous years ago these values were elevated... Pending at this time #Renal ultrasound: I performed a renal ultrasound due to back pain at prior appointment that was overall unremarkable as well. #Iron studies: Pending at this time #Anxiety: Continue following with psychiatry, patient had her dose of Wellbutrin increased to 400 mg, still taking escitalopram 20 mg tablets. I encouraged patient to call psychiatrist and advocate for Cymbalta as this may help with her nerve pain... Has an appointment scheduled the end of the month #Muscle spasms: Utilize cyclobenzaprine HCL 5 mg tablets as needed. Discontinue ketorolac as this has not been helpful for patient. #Insomnia: Continue hydroxyzine 25 mg tablets as needed. #Abdominal pain: Patient presented on 09/05/2024 at [facility] status post hysterectomy at [facility] about 3 months ago, severe worsening pain that is on the right side of her abdomen, in the right side of her back, buttocks and radiates down the leg. She states that the pain is so severe that it is causing her. She has never had a pain like this before, no loss of bladder or bowel function. Patient was given IV hydromorphone and alprazolam. CT scan of the abdomen and pelvis are unremarkable. 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 Arango office to establish gynecologic care... States she has appointment standing for March All questions have been answered to patient's satisfaction. Patient verbalized understanding of diagnosis and treatments explained. Advised to call sooner prior to next visit it any questions/concerns arise. Case discussed with Johnny GUEVARA who reviewed the assessment and plan. Chart, medications, labs, vital signs reviewed. Dictation was accomplished with the use of [employer] voice recognition software, which is prone to medical misidentifications and grammatical errors. This are unintentional and the practitioner does try to identify and correct these, but some could still be present. Please do not hesitate to contact practitioner for clarification. 12/17/2024 Joint inflammation (ICD-10 - M19.90) Domingo is a pleasant 43-year-old female who presents for a CPE. #Pain: Continue taking Lyrica 25 mg capsules twice daily as needed for pain. Referring patient to pain management for a further evaluation. #Endometriosis flare?: Patient has been previously prescribed prednisone in the past for inflammation, prescribing patient prednisone burst x 5 days... Ultimately patient is aware that she needs to be seen by pain management, unsure of the entirety of the cause of patient's pain at this time. Most likely at this time includes nerve inflammation from endometriosis or from previous hysterectomy. #Endometriosis: Continue norethindrone 0.5 mg tablets daily, patient encouraged to call her previous [employer] surgeon who performed the hysterectomy for further evaluation. She may need a laparoscopic surgery as her endometriosis may be as her endometriosis may be continuing to spread and be causing her pain. Patient extremely tender upon abdominal exam today. Patient did have a CT scan of her abdomen completed that was overall unremarkable. #Rectal bleeding: Patient denies rectal exam at this time, she is to call the office if this does not improve. Patient encouraged to utilize MiraLAX for softer bowel movements as she has not been having bowel movements more than once a week. #Fatigue: May would not be related to iron deficiency, obtaining new labs #Amylase/lipase: Ordering for patient as she states in the hospital numerous years ago's these values were elevated. #Renal ultrasound: I performed a renal ultrasound due to back pain at prior appointment that was overall unremarkable as well. #Iron studies: Placed today. Patient did have lab work completed back in August that demonstrated a low ferritin level of 10, she is currently taking iron 3 times weekly. #Anxiety: Continue following with psychiatry, patient had her dose of Wellbutrin increased to 400 mg, still taking escitalopram 20 mg tablets. I encouraged patient to call psychiatrist and advocate for Cymbalta as this may help with her nerve pain. #Muscle spasms: Utilize cyclobenzaprine HCL 5 mg tablets as needed. Discontinue ketorolac as this has not been helpful for patient. #Insomnia: Continue hydroxyzine 25 mg tablets as needed. #Abdominal pain: Patient presented on 09/05/2024 at [facility] status post hysterectomy at [facility] about 3 months ago, severe worsening pain that is on the right side of her abdomen, in the right side of her back, buttocks and radiates down the leg. She states that the pain is so severe that it is causing her. She has never had a pain like this before, no loss of bladder or bowel function. Patient was given IV hydromorphone and alprazolam. CT scan of the abdomen and pelvis are unremarkable. 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 Arango office to establish gynecologic care. All questions have been answered to patient's satisfaction. Patient verbalized understanding of diagnosis and treatments explained. Advised to call sooner prior to next visit it any questions/concerns arise. Case discussed with Johnny GUEVARA who reviewed the assessment and plan. Chart, medications, labs, vital signs reviewed. Dictation was accomplished with the use of [employer] voice recognition software, which is prone to medical misidentifications and grammatical errors. This are unintentional and the practitioner does try to identify and correct these, but some could still be present. Please do not hesitate to contact practitioner for clarification. 12/31/2024 Encounter for examination of blood pressure without abnormal findings (ICD-10 - Z01.30) Domingo is a pleasant 43-year-old female who presents for a f/u... #Brain fog: Obtaining CT scan of the brain for memory loss and brain fog concern #Pain: Continue taking Lyrica 25 mg capsules twice daily as needed for pain. Pain management informed us that they are no longer taking new patients, will try and find new pain management clinic for patient #Endometriosis: Continue norethindrone 0.5 mg tablets daily, patient encouraged to call her previous [employer] surgeon who performed the hysterectomy for further evaluation. She may need a laparoscopic surgery as her endometriosis may be as her endometriosis may be continuing to spread and be causing her pain. #Rectal bleeding:Resolved, continue to lysing MiraLAX and Colace #Fatigue: May would not be related to iron deficiency, obtaining new labs.. May be related to chronic fatigue from endometriosis #Amylase/lipase: Ordering for patient as she states in the hospital numerous years ago these values were elevated... Pending at this time #Renal ultrasound: I performed a renal ultrasound due to back pain at prior appointment that was overall unremarkable as well. #Iron studies: Pending at this time #Anxiety: Continue following with psychiatry, patient had her dose of Wellbutrin increased to 400 mg, still taking escitalopram 20 mg tablets. I encouraged patient to call psychiatrist and advocate for Cymbalta as this may help with her nerve pain... Has an appointment scheduled the end of the month #Muscle spasms: Utilize cyclobenzaprine HCL 5 mg tablets as needed. Discontinue ketorolac as this has not been helpful for patient. #Insomnia: Continue hydroxyzine 25 mg tablets as needed. #Abdominal pain: Patient presented on 09/05/2024 at [facility] status post hysterectomy at [facility] about 3 months ago, severe worsening pain that is on the right side of her abdomen, in the right side of her back, buttocks and radiates down the leg. She states that the pain is so severe that it is causing her. She has never had a pain like this before, no loss of bladder or bowel function. Patient was given IV hydromorphone and alprazolam. CT scan of the abdomen and pelvis are unremarkable. 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 Arango office to establish gynecologic care... States she has appointment standing for March All questions have been answered to patient's satisfaction. Patient verbalized understanding of diagnosis and treatments explained. Advised to call sooner prior to next visit it any questions/concerns arise. Case discussed with Johnny GUEVARA who reviewed the assessment and plan. Chart, medications, labs, vital signs reviewed. Dictation was accomplished with the use of [employer] voice recognition software, which is prone to medical misidentifications and grammatical errors. This are unintentional and the practitioner does try to identify and correct these, but some could still be present. Please do not hesitate to contact practitioner for clarification. 12/17/2024 Encounter for examination of blood pressure without abnormal findings (ICD-10 - Z01.30) Domingo is a pleasant 43-year-old female who presents for a CPE. #Pain: Continue taking Lyrica 25 mg capsules twice daily as needed for pain. Referring patient to pain management for a further evaluation. #Endometriosis flare?: Patient has been previously prescribed prednisone in the past for inflammation, prescribing patient prednisone burst x 5 days... Ultimately patient is aware that she needs to be seen by pain management, unsure of the entirety of the cause of patient's pain at this time. Most likely at this time includes nerve inflammation from endometriosis or from previous hysterectomy. #Endometriosis: Continue norethindrone 0.5 mg tablets daily, patient encouraged to call her previous [employer] surgeon who performed the hysterectomy for further evaluation. She may need a laparoscopic surgery as her endometriosis may be as her endometriosis may be continuing to spread and be causing her pain. Patient extremely tender upon abdominal exam today. Patient did have a CT scan of her abdomen completed that was overall unremarkable. #Rectal bleeding: Patient denies rectal exam at this time, she is to call the office if this does not improve. Patient encouraged to utilize MiraLAX for softer bowel movements as she has not been having bowel movements more than once a week. #Fatigue: May would not be related to iron deficiency, obtaining new labs #Amylase/lipase: Ordering for patient as she states in the hospital numerous years ago's these values were elevated. #Renal ultrasound: I performed a renal ultrasound due to back pain at prior appointment that was overall unremarkable as well. #Iron studies: Placed today. Patient did have lab work completed back in August that demonstrated a low ferritin level of 10, she is currently taking iron 3 times weekly. #Anxiety: Continue following with psychiatry, patient had her dose of Wellbutrin increased to 400 mg, still taking escitalopram 20 mg tablets. I encouraged patient to call psychiatrist and advocate for Cymbalta as this may help with her nerve pain. #Muscle spasms: Utilize cyclobenzaprine HCL 5 mg tablets as needed. Discontinue ketorolac as this has not been helpful for patient. #Insomnia: Continue hydroxyzine 25 mg tablets as needed. #Abdominal pain: Patient presented on 09/05/2024 at [facility] status post hysterectomy at [facility] about 3 months ago, severe worsening pain that is on the right side of her abdomen, in the right side of her back, buttocks and radiates down the leg. She states that the pain is so severe that it is causing her. She has never had a pain like this before, no loss of bladder or bowel function. Patient was given IV hydromorphone and alprazolam. CT scan of the abdomen and pelvis are unremarkable. 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 Arango office to establish gynecologic care. All questions have been answered to patient's satisfaction. Patient verbalized understanding of diagnosis and treatments explained. Advised to call sooner prior to next visit it any questions/concerns arise. Case discussed with Johnny GUEVARA who reviewed the assessment and plan. Chart, medications, labs, vital signs reviewed. Dictation was accomplished with the use of [employer] voice recognition software, which is prone to medical misidentifications and grammatical errors. This are unintentional and the practitioner does try to identify and correct these, but some could still be present. Please do not hesitate to contact practitioner for clarification. Plan Of Treatment Pending Test Test Name Order Date EMG/NCV ARMS 10/02/2024 HARPAL Comprehensive Panel 09/11/2024 ESR 09/11/2024 ESR 12/17/2024 Ultrasound : Kidneys and Bladder 025 LACTIC ACID 12/17/2024 CT Head w and w/o Contrast 12/31/2024 LIPID PANEL, STANDARD 12/17/2024 IRON, TIBC AND FERRITIN PANEL 12/17/2024 COMPREHENSIVE METABOLIC PANEL 12/17/2024 CBC (INCLUDES DIFF/PLT) 12/17/2024 LIPASE 12/17/2024 AMYLASE 12/17/2024 CT Abdomen Pelvis W Cont 09/11/2024 TSH+T3+Free T4+T3 Free 12/17/2024 Next Appt Details Provider Name:BYRON MALDONADO, 10:30:00 AM, [address], [place], [address], Insurance Providers Payer Name Payer Address Payer Phone Subscriber Number Group Number Insured Name Patient Relationship to Insured Coverage Start Date Coverage End Date [facility] [place] [address] [place] [address] [phone] [id number] DOMINGO BELTRAN Self - patient is the insured 3 Medications Administered Medication Instructions Date of Administration Dosage Notes MICC B12 INJECTION 10/02/2024 1 mL Medical (General) History Medical History History ICD Code endometriosis high blood pressure Anxiety F41.9 Nerve pain M79.2 Surgical History Surgery Date(Month/Year) hysterectomy 06/21
--- OUTSIDE RECORDS SUMMARY | 2025-01-30 11:25 | XMS_ITS | Clinical Summary ---
Author Organization [facility] Address [address] [place] [address] Phone Care Team Providers Care Tearoom Hostess Name Role Phone Codi Tan Primary Care Provider [phone] Encounters Date Type Department Care Team Description 12/29/2024 2:23 PM EDT - 12/29/2024 11:59 PM EDT Hospital Encounter [facility] Neurodiagnostic [address] [place] [phone] Neuralgia and neuritis, unspecified Discharge Disposition: Home or Self Care from Last 3 Months Social History Tobacco Use Types Packs/Day Years Used Date Smoking Tobacco: Never Assessed Comments Unknown Sex and Gender Information Value Date Recorded Sex Assigned at Female 12/28/2024 11:48 AM EDT Legal Sex Female 8:36 AM EDT Gender Identity Female 12/28/2024 11:48 AM EDT Sexual Orientation Not on file Plan of Treatment Health Maintenance Due Date Last Done Comments Breast Cancer Screening 1980 Hepatitis B Vaccines (1 of 3 - 19+ 3-dose series) 2000 COVID-19 Vaccine ( - 2023-2 5 season) 2024 Depression Screening 10/07/2024 HIV Screening 10/07/2024 Hepatitis C Screening 10/07/2024 Social Influencers of Health Screening 10/07/2024 Influenza Vaccine (#1) 2025 Cervical Cancer Screening: P ap Smear 04/20/2027 04/20/2024 DTaP,Tdap,and Td Vaccines (2 - Td or Tdap) 04/22/2034 04/22/2024 HIB Vaccines Aged Out No longer eligi ble based on patient's age to complete this topic HPV Vaccines Aged Out No longer eligi ble based on patient's age to complete this topic Hepatitis A Vaccines Aged Out No long er eligible based on patient's age to complete this topic IPV Vaccines Aged Out No longer eligi ble based on patient's age to complete this topic MMR Vaccines Aged Out No longer eligi ble based on patient's age to complete this topic Meningococcal ACWY Vaccine Aged Out N o longer eligible based on patient's age to complete this topic Meningococcal B Vaccine Aged Out No l onger eligible based on patient's age to complete this topic Pneumococcal Vaccine: Pediat rics (0 to 5 Years) and At-Risk Patients (6 to 64 Years) Aged Out No longer eligi ble based on patient's age to complete this topic RSV Immunization Patients Un shane 20 months Aged Out No longer eligible b ased on patient's age to complete this topic Varicella Vaccines Aged Out No longer eligible based on patient's age to complete this topic Procedures Procedure Name Priority Date/Time Associated Diagnosis Comments EMG 1 LIMB Routine 12/29/2024 3:08 PM EDT Neuralgia and neuritis, unspecified from Last 3 Months Results * EMG one limb (12/29/2024 3:08 PM EDT) Narrative Migdalia Berkowitz MD - 12/29/2024 3:26 PM EDT Images from the original result were not included. Neurodiagnostic Lab [address] [place] [id number] Electromyograph Report Date of service: 12/29/24 Patient Name: Domingo Beltran Date of : 1980 Age: 44 y.o. Gender: female Procedure Order: EMG one limb Ordering Provider: VALENTE Mayers Reason for Exam: There are no answered order specific questions. Diagnosis listed on Order: Neuralgia and neuritis, unspecified Please see scanned report for testing details and results. Procedure Note Migdalia Berkowitz MD - 12/29/2024 Images from the original note were not included. [facility] [address] [place] [address] Electromyograph Report Date of service: 12/29/24 Patient Name: Domingo Beltran Date of : 1980 Age: 44 y.o. Gender: female Procedure Order: EMG one limb Ordering Provider: VALENTE Mayers Reason for Exam: There are no answered order specific questions. Diagnosis listed on Order: Neuralgia and neuritis, unspecified Please see scanned report for testing details and results. EDT us Codi VICTOR NEUROLOGY ORDERABLES Final Resul t from Last 3 Months Insurance [facility] Care Teams Tearoom Hostess Relationship Specialty Start Date End Date Codi Tan PA [address] [place] [phone] PCP - General 10/07/24
--- OUTSIDE RECORDS SUMMARY | 2025-01-30 11:25 | XMS_ITS | Patient Health Record ---
Author Organization [facility] Address [address] [place] [address] [address] [place], [place] [id number] Care Team Providers Care Psychiatric Technician Name Role Phone ELI CEE Primary Care Provider Allergies No Known Allergies Reason For Referral No Information Medications Medication SIG (Take, Route, Frequency, Duration) Notes Start Date End Date Status Ibuprofen 800 MG 1 tablet with food o r milk as needed Orally every 8 hrs Active Lexapro 20 MG 1 tablet Orally Once a day Active Wellbutrin XL 300 MG 1 tablet in the mor waylon Orally Once a day Active Cyclobenzaprine HCl 5 MG 1 tablet at bed time as needed Orally three a day; Duration: 30 day(s) Prn Active Norethindrone 0.35 MG 1 tablet Orally Once a day Active Problems Problem Type SNOMED Code ICD Code Onset Dates Problem Status W/U Status Risk Notes Problem Moderate recurrent major depression (45900777) Major depressive disorder, recurrent, moderate (F33.1) Active confirmed Problem Asthma (824966906) Asthma (J45.909) Active confirmed Problem Opioid dependence (72780572) Narcotic dependence (F11.20) Active confirmed Problem Opioid abuse (1348906) Narcotic abuse (F11.10) Active confirmed Vital Signs Heart Rate 137 /min 08/12/2024 Vitals taken by HS Oximetry 98 % 08/12/2024 Vitals taken by HS Blood pressure diastolic 103 mm Hg 08/12/2024 Vit als taken by HS Height 62 in 08/12/2024 Vitals taken by HS Blood pressure systolic 139 mm Hg 08/12/2024 Farheen ls taken by HS Weight 151.8 lbs 08/12/2024 Vitals taken by HS BMI 27.76 kg/m2 08/12/2024 Vitals taken by HS Encounters Encounter Location Date Provider Diagnosis [address] [place], [place] [id number] 08/12/2024 ELI CEE Asthma J45.909 ; Encounter for general adult medical examination with abnormal findings Z00.01 ; Narcotic dependence F11.20 ; Narcotic abuse F11.10 ; Major depressive disorder, recurrent, moderate F33.1 and Encounter for screening for cardiovascular disorders Z13.[address] [place], [place] [id number] 07/07/2024 ELI CEE [address] [place], [place] [phone] 07/23/2024 ELI CEE Assessments Encounter Date Diagnosis (ICD Code) Assessment Notes Treatment Notes Treatment Clinical Notes Section Notes 08/12/2024 Encounter for general adult medical examination with abnormal findings (ICD-10 - Z00.01) 08/12/2024 Asthma (ICD-10 - J45.909) 08/12/2024 Narcotic dependence (ICD-10 - F11.20) see hpi, she is a regular user with addiction of heroin, and recent use resulted in severe sedation. advised mother get narcan. advised honesthy with her providers, as she has always lied and kep this a secret while her psychiatrist, for example, tries vainly to help her without knowledge of her health. advised her this is a condition likely to result in incarceration, hospitalization and in the future, and perhaps soon, and advised her to immediately check into an an inpatient [facility]. also referred he rto the [employer] program 08/12/2024 Narcotic abuse (ICD-10 - F11.10) 08/12/2024 Major depressive disorder, recurrent, moderate (ICD-10 - F33.1) continue current dosage of medication, reviewed strategies including lifestyle modification, increased exercise and activities involving social interaction, consideration of counselling. call if any exacerbation, particularly thoughts of self harm, and continue frequent regular follow up 08/12/2024 Encounter for screening for cardiovascular disorders (ICD-10 - Z13.6) Plan Of Treatment No Information Insurance Providers Payer Name Payer Address Payer Phone Subscriber Number Group Number Insured Name Patient Relationship to Insured Coverage Start Date Coverage End Date [facility] [address] [facility] [place] [phone] [id number] Kavya Mayberry Self - patient is the insured Medical (General) History Medical History History ICD Code Asthma J45.909 Surgical History Surgery Date(Month/Year) hysterectomy 2023 oopherectomy, unilateral 2023 bilateral salpingectomy 2023
[2025-01-30 11:26] LABS: Alanine Aminotransferase 119 U/L (0-31); Albumin Level 4.6 g/dL (3.5-5.0); Alkaline Phosphatase 71 U/L (39-117); Anion Gap 17 (12-20); Aspartate Amino Transferase 53 U/L (5-31); Blood Urea Nitrogen 16 mg/dL (9-16); Calcium 8.6 mg/dL (8.4-10.2); Carbon Dioxide 18 mmol/L (22-29); Chloride 108 mmol/L (96-108); Creatinine Clr Calc Pharmacy 107.4; Estimated Glomerular Filt Rate > 60; Lipase 84 U/L (8-78); Magnesium 1.9 mg/dL (1.6-2.6); Potassium 3.4 mmol/L (3.3-5.1); Sodium 140 mmol/L (135-145); Total Protein 7.1 g/dL (6.5-8.0)
--- OUTSIDE RECORDS SUMMARY | 2025-01-30 11:26 | XMS_ITS | Encounter Summary ---
Author Organization [facility] Address [address] [place] [address] Care Team Providers Care Certified Tumor Registrar Name Role Phone Unavailable Primary Care Provider Unavailabl e Encounter Details Date Type Department Care Team (Late st Contact Info) Description 01/08/2025 Transcribe Orders MG PAIN MGMT [id number] [facility] [address] [place] [phone] System, Provider Not In Nerve pain (Primary Dx) Social History Tobacco Use Types Packs/Day Years Used Date Smoking Tobacco: Never Assessed Comments Unknown Sex and Gender Information Value Date Recorded Sex Assigned at Not on file Legal Sex Female 8:51 AM EDT Gender Identity Not on file Sexual Orientation Not on file documented as of this encounter Plan of Treatment Not on file documented as of this encounter Visit Diagnoses Diagnosis Nerve pain- Primary Unspecified neuralgia, neuritis, and radiculitis documented in this encounter
[2025-01-30 12:04] VITALS: BP 146/91; PULSE 84; RESP 20; TEMP 36.6; O2SAT 98
[2025-01-30] MEDS: iohexoL 350 MG/ML 100 ML INFUS..BTL 85 ML IV (12:27)
[2025-01-30 14:49] VITALS: BP 107/81; PULSE 89; RESP 13; TEMP 36.6; O2SAT 98
[2025-01-30 14:56] VITALS: BP 107/81; PULSE 89; RESP 13; TEMP 36.6; O2SAT 98
== END 2025-01-30 14:56 | disposition left against medical advice (07) ==
PROVIDERS: Physician Assistant Medical; Emergency Provider Emergency Medicine
DX: K85.90 Acute pancreatitis without necrosis or infection, unspecified (principal); R11.2 Nausea with vomiting, unspecified; N80.8 Other endometriosis; N80.00 Endometriosis of the uterus, unspecified; Z90.710 Acquired absence of both cervix and uterus
CPT/HCPCS: 36415; 74177; 80048; 80076; 81001; 83690; 83735; 85025; 96361; 96374; 96375; 96376; 99285; J1171; J1200; J1885; J2270; J2765; Q9967

== ENCOUNTER → 2025-01-30 11:00 | Outpatient (BNV) | payer OTHER, SELFPAY | PROVIDERS: Emergency Provider Emergency Medicine; Visit Provider Radiology Diagnostic Radiology | DX: R10.9 Unspecified abdominal pain (principal) | CPT/HCPCS: 74177 ==

== ENCOUNTER 2025-02-05 13:24 | Emergency (ER) | payer OTHER, SELFPAY ==
--- NOTE | ~2025-02-05 | US_ITS ---
CLINICAL HISTORY: R ABD pain back pain US pelvis transabdominal and transvaginal with duplex and color Doppler Comparison: US - US PELVIC AND TRANSVAGINAL - 02/05/25 16:[address]/SR - ABDOMEN ABD_PELVIS_IV_CONTRAST (ADULT) - 01/30/25 12:18 EDT Findings: Transabdominal scanning performed for overall anatomy. Transvaginal scanning performed for additional detail. The vaginal cuff is normal in appearance. Right oophorectomy The left ovary measures, 2.2 x 1.1 x 1.8 cm. Normal spectral Doppler interrogation No free fluid. There is no pelvic mass or cyst identified. Unremarkable sonographic evaluation of the right lower quadrant Impression: 1. Post hysterectomy and right oophorectomy. Normal sonographic appearance of the left ovary. No pelvic masses or fluid collections demonstrated. 2. Appendix not visualized. No secondary signs of acute appendicitis. This document has been electronically signed by: Michael Obando MD on 02/05/2025 18:43:03
--- NOTE | ~2025-02-05 | US_ITS ---
CLINICAL HISTORY: RT ABD PAIN BACK PAIN US abdomen limited Comparison: None Findings: Appendix not identified No free fluid, mass, adenopathy, or echogenic fat. Impression: 1. Appendix not identified. No secondary evidence of acute appendicitis. This does not exclude the possibility of appendicitis with the appropriate clinical signs/symptoms. This document has been electronically signed by: Michael Obando MD on 02/05/2025 18:53:49
--- NOTE | ~2025-02-05 | US_ITS ---
CLINICAL HISTORY: R ABD pain, gallbladder, kidney, appendix US abdomen limited color Doppler Comparison: CT/SR - ABDOMEN ABD_PELVIS_IV_CONTRAST (ADULT) - 01/30/25 12:18 EDT Findings: Common duct 4.0 mm diameter. Gallbladder is physiologically distended. Debris within the gallbladder lumen. No cholelithiasis. No gallbladder wall thickening. No pericholecystic fluid. No sonographic Kraft sign. Right kidney measures, 10.3 cm in length. Probable hypertrophied column of Young. No hydronephrosis calculus or mass. Impression: 1. Debris within the gallbladder lumen no shadowing gallstones. This document has been electronically signed by: Michael Obando MD on 02/05/2025 18:46:15
--- NOTE | ~2025-02-05 | XR_ITS ---
CLINICAL HISTORY: pain --- Additional Notes or Special Instructions: constipation, 1 view abdomen Comparison: US - US PELVIC OVARIAN DOPPLER - 02/05/25 17:09 EDT US/SR - US ABDOMEN LIMITED - 02/05/25 16:[address]/SR - ABDOMEN ABD_PELVIS_IV_CONTRAST (ADULT) - 01/30/25 12:18 EDT Findings: Nonspecific bowel gas pattern. Normal stool quantity. No pneumoperitoneum or pneumatosis. No urinary tract calculi are present. Renal and psoas margins are normal. No organomegaly. No acute fracture. Impression: 1. Nonspecific bowel gas pattern. 2. No radiopaque calculi. This document has been electronically signed by: Michael Obando MD on 02/05/2025 18:58:47
[2025-02-05 13:27] VITALS: BP 134/93; PULSE 75; RESP 18; TEMP 36.6; O2SAT 100; BMI 28.7
--- NOTE | 2025-02-05 13:27 | ED_ITS ---
HPI - General Adult General Chief complaint: Abdominal Pain Stated complaint: Pancreatitis Pain Time Seen by Provider: 02/05/25 13:57 Source: patient Mode of arrival: ambulatory Limitations: no limitations History of Present Illness ED Provider: mellissa fabian np HPI narrative: Patient is a 44-year-old female who presents emergency department for evaluation. She was 1st seen 01/30/2025 is having abdominal pain nausea and vomiting that had started 4 days prior. She admits when she was also having a fever prior to at evaluation T-max 102.5 degrees. Reports that she was diagnosed with pancreatitis declined hospital admission ultimately went home. She has continued to have progressive pain to her right side of her abdomen mid/lower as well as diffuse lower back pain. She had an outpatient follow-up with your primary care doctor today who expressed to her their concerns about pancreatitis if left untreated in ultimately she came back to emergency department today. She denies any recurrent fevers, no further vomiting but pain has progressed. She denies dysuria/hematuria, urinary frequency/urgency/hesitancy but does admit that her urine has been dark and cloudy which is atypical for her. Related Data Allergies Allergy/AdvReac Type Severity Reaction Status Date / Time ondansetron (From Zofran) Allergy Vomiting Verified 02/05/25 13:31 Review of Systems 2 Review of Systems: Yes all other systems are reviewed and are negative PMFSH Past Medical History Attestation statement: The following information was validated with the patient. Source: old records reviewed Social History Social History Smoked in Last 30 Days: No Use of substances other than those prescribed or required for medical reasons: No Advance Directives: No Advance Directives Information Provided: Yes Do you have a plan to hurt others: No Plan Physical Exam ED Vital Signs: Vital Signs - 24 hr 02/05/25 13:27 02/05/25 14:21 02/05/25 14:38 Temperature 97.9 F 98.2 F Pulse Rate 75 77 Respiratory Rate 18 16 22 H Blood Pressure 134/93 H 114/76 Pulse Oximetry 100 100 Oxygen Delivery Method Room Air Room Air BMI result Body Mass Index 28.7 Appearance: Alert.?Oriented to person, place and time. No acute distress.?Normal affect. Eyes: Pupils equal, round and reactive to light.? ENT: Pharynx normal.?? Neck: Normal inspection.? Neck supple.?? CVS: Heart sounds normal. Normal heart rate and rhythm.? Pulses normal.?? Respiratory: No respiratory distress.? Lung sounds clear to auscultation bilaterally?? Abdomen: Soft with diffuse tenderness upon palpation worse to the right lower quadrant without rebound tenderness at McBurney's point. No rigidity. Positive right CVAT. Negative Kraft sign. No significant pain/tenderness over the epigastrium or left upper quadrant. Normoactive bowel sounds. Skin: Skin warm and dry.? Normal skin color.? Extremities: No lower extremity edema.? Neuro: Moves all extremities spontaneously. Sensation intact bilaterally. Ambulates with normal steady gait. Course Course Course Narrative: RME, this is a rapid medical exam performed by Maik Vazquez please refer to primary provider for complete H&P- 44-year-old female presents for evaluation of epigastric abdominal pain that radiates to her back. She was seen here 6 days ago and diagnosed with pancreatitis with a lipase of [address] findings consistent with mild pancreatitis. She followed up with her primary provider today and was referred back to the ER. Plan for repeat labs, will defer repeat imaging at this time. Reevaluation(s) Reevaluation #1: I Miesha Ryan PA-C have accepted care of the patient and signed out pending imaging and final disposition the patient was seen in the emergency department days ago had a CT scan that revealed maybe mild pancreatitis, I feel this was an over-read, her pain distribution was never in the left upper quadrant. Today repeat labs show normal lipase. She is pending ultrasound that has transvaginal to rule out endometriosis, she is also pending an abdominal ultrasound looking at gallbladder, renal, appy. I also reviewed the CT scan from prior visit, the patient was considerably constipated at that time. She states she struggles with constipation, that she just took Dulcolax, she did have a bowel movement. I am also obtaining a KUB to assess her current stool burden Transvaginal ultrasound:Right oophorectomy The left ovary measures, 2.2 x 1.1 x 1.8 cm. Normal spectral Doppler interrogation No free fluid. There is no pelvic mass or cyst identified. Unremarkable sonographic evaluation of the right lower quadrant Impression: 1. Post hysterectomy and right oophorectomy. Normal sonographic appearance of the left ovary. No pelvic masses or fluid collections demonstrated. 2. Appendix not visualized. No secondary signs of acute appendicitis. Abdominal ultrasound:Impression: 1. Debris within the gallbladder lumen no shadowing gallstones. KUB: Constipation I reviewed all findings with the patient, she is pleased there was no acute issue, sending her with more of an aggressive bowel regimen. Medications Administered Discontinued Medications Generic Name Dose Route Start Last Admin Trade Name Jamesq PRN Reason Stop Dose Admin Diazepam 2.5 mg 02/05/25 17:42 02/05/25 17:57 Diazepam 10 Mg/2 Ml Cartridge IVPUSH 02/05/25 17:43 2.5 mg STAT STA Administration Ketorolac Tromethamine 15 mg 02/05/25 17:42 02/05/25 17:57 Ketorolac Tromethamine 15 Mg/Ml Vial IVPUSH 02/05/25 17:43 15 mg ONCE ONE Administration Metoclopramide HCl 10 mg 02/05/25 14:21 02/05/25 14:38 Metoclopramide Hcl 10 Mg/2 Ml Vial IVPUSH 02/05/25 14:22 10 mg ONCE ONE Administration Morphine Sulfate 4 mg 02/05/25 14:21 02/05/25 14:38 Morphine Sulfate 4 Mg/Ml Cartridge IVPUSH 02/05/25 14:22 4 mg ONCE ONE Administration Protocol Medical Decision Making Medical Decision Making MDM Narrative: Patient is a 44-year-old female past medical history of endometriosis, hysterectomy in May of 2024 who presents emergency department for evaluation of worsening pain to her right flank and right upper quadrant. Was seen in the emergency department 01/30/2025, head CT scan at that time concerning for mild pancreatitis without fluid collection, pancreatic ductal dilation or masses noted, she required multiple doses of analgesia including morphine Toradol and Dilaudid additional antiemetics, was recommended to have hospital admission but she declined and ultimately left against medical advice. On examination today she is notably tender in the right lower quadrant and has diffuse lower back tenderness with right CVA tenderness, seeming less consistent with pain I would anticipate from acute pancreatitis. Prior CT without reported nephrolithiasis, no hydronephrosis, no adnexal masses appreciated. Prior urinalysis with trace leukocyte esterase trace urine bacteria. Will obtain CBC to evaluate for leukocytosis/ anemia, CMP and lipase to evaluate for abnormal electrolytes /abnormal renal function/ abnormal hepatic/biliary function, and Urinalysis. We will trial morphine IV and Reglan IV. 14:30 CBC is without leukocytosis, has a mild normocytic anemia that does not meet transfusion criteria, no thrombocytopenia. No electrolyte derangement. No BASIL. ALT of 44 otherwise unremarkable LFTs and lipase of 71. Urinalysis with trace leukocyte esterase, urine WBCs bacteria seen, no microscopic hematuria. She is hesitant to repeat CT imaging or she has had multiple CT images in the past year side of this hospital, Given she is returning with worsening pain, plan to obtain pelvic ultrasound as well as ultrasound of the abdomen for further evaluation possible biliary colic from cholelithiasis, hydronephrosis, ovarian cyst. 15:00 patient signed out to Brayan VICTOR pending ultrasound imaging and re- evaluation Differential Diagnosis Differential Diagnoses: The differential diagnosis associated with the presentation includes (Pancreatitis, cholecystitis, choledocholithiasis, UTI, pyelonephritis, ureteral calculi, appendicitis) Lab Data MDM Lab Attestation statement: I reviewed the patient's lab results. 02/05/25 13:37 02/05/25 13:37 Labs: Lab Results 02/05/25 02/05/25 Range/Units 13:37 14:17 WBC 5.4 (4.8-10.8) X10*3/uL RBC 3.99 L (4.20-5.50) X10*6/uL Hgb 11.9 L (12.0-16.0) g/dl Hct 34.2 L (37.0-47.0) % MCV 85.7 (80.0-98.0) fL MCH 29.8 (27.0-33.0) pg MCHC 34.8 (31.0-35.0) g/dl RDW 12.9 (11.0-16.0) % Plt Count 300 (160-400) X10*3/uL MPV 9.6 (9.4-12.3) fL Immature Gran % (Auto) 0.2 (0.0-0.4) % Neut % (Auto) 44.2 L (45-73) % Lymph % (Auto) 41.0 H (20-40) % Frederick % (Auto) 6.8 (2-11) % Eos % (Auto) 7.2 H (0-4) % Baso % (Auto) 0.6 (0-2) % Lymph # (Auto) 2.2 (1.2-4.9) X10*3/uL Frederick # (Auto) 0.4 (0.1-1.2) X10*3/uL Eos # (Auto) 0.4 (0.0-0.4) X10*3/uL Baso # (Auto) 0.0 (0.0-0.2) X10*3/uL Abs Immat Gran (auto) 0.01 (0.00-0.03) X10*3/uL Absolute Neuts (auto) 2.4 (2.0-8.3) x10*3/uL Absolute Nucleated RBC 0.000 (0.0-0.012) X10*3/uL Nucleated RBC % (auto) 0.0 (0.0-0.2) /100WBC Sodium 142 (135-145) mmol/L Potassium 3.9 (3.3-5.1) mmol/L Chloride 107 (96-108) mmol/L Carbon Dioxide 30 H (22-29) mmol/L Anion Gap 9 L (12-20) BUN 10 (9-16) mg/dL Creatinine 0.77 (0.5-1.4) mg/dL Estim Creat Clear Calc 87.0 Estimated GFR > 60 Random Glucose 70 (60-115) mg/dL Calcium 8.9 (8.4-10.2) mg/dL Magnesium 2.6 (1.6-2.6) mg/dL Total Bilirubin 0.3 (0.0-1.0) mg/dL Direct Bilirubin 0.1 (0.0-0.5) mg/dL AST 11 (5-31) U/L ALT 44 H (0-31) U/L Alkaline Phosphatase 65 (39-117) U/L C-Reactive Protein < 0.10 (< or = 0.50) mg/dL Total Protein 6.6 (6.5-8.0) g/dL Albumin 4.4 (3.5-5.0) g/dL Lipase 71 (8-78) U/L Beta HCG, Quant < 2 mIU/mL Urine Color Yellow Urine Appearance Turbid Urine pH 8.5 (5.0-9.0) Ur Specific Mulhall 1.015 (1.005-1.025) Urine Protein Trace (Neg-Trace) mg/dL Urine Glucose (UA) Negative (Negative) mg/dL Urine Ketones Negative (Negative) mg/dL Urine Blood Negative (Negative) Urine Nitrite Negative (Negative) Ur Leukocyte Esterase Trace H (Negative) Urine RBC 0-2 (0-2) /HPF Urine WBC 0-5 (0-5) /HPF Ur Squamous Epith Cells 3-5 (0-2) /HPF Urine Bacteria None Seen (None Seen) Hyaline Casts 0-2 (0-2) /LPF Ethyl Alcohol < 10 mg/dL Independent Historian Clinical information obtained from an independent historian. History obtained from or confirmed by: Parent External Record Review External record reviewed: Outpatient record Chronic Conditions Patient?s care impacted by: Other (See narrative above) Critical Care Time Critical Care Time Critical Care Time: Yes Total Critical Care Time: 35 Attestation: Time is exclusive of separately billable procedures. Time includes: direct patient care, patient reassessment, coordination of patient care, interpretation of data (laboratory data, pulse oximetry, IV morphine and re-evaluation), review of patient's medical records, medical consultation and documentation of patient care. Procedures excluded from critical care time: central intravenous line placement and electrocardiography. Discharge Plan Discharge Clinical Impression: Constipation Patient Disposition: Home, Self-Care Instructions: Constipation (ED) Additional Instructions: All of your screening labs were normal, including your pancreatic enzyme, it is not elevated. Your urine is not infected. There were no abnormalities noted on the ultrasound of the abdomen; gallbladder structures, the kidney in the appendix were assessed, there are no acute issues. The transvaginal ultrasound also revealed no pathology. The x-ray does reveal that you are still constipated. See home care instructions. I would start to use Colace twice a day, I would use the MiraLax every hour until you begin having multiple large volume bowel movements. Once you clear your current stool burden, you may require the Colace daily, with the MiraLax daily, you will have to determine what regimen keeps your bowel habits regular. Follow up with your primary care provider as needed. Print Language: Romanian
[2025-02-05 13:42] LABS: MANUAL DIFF FLAG NO
[2025-02-05 13:47] LABS: Hematocrit 34.2 % (37.0-47.0); Hemoglobin 11.9 g/dl (12.0-16.0); Imm Gran Abs Auto 0.01 X10*3/uL (0.00-0.03); Imm Gran Pct Auto 0.2 % (0.0-0.4); Lymphocytes Absolute Auto 2.2 X10*3/uL (1.2-4.9); Mean Corpuscular HGB Conc 34.8 g/dl (31.0-35.0); Mean Corpuscular Hemoglobin 29.8 pg (27.0-33.0); Mean Corpuscular Volume 85.7 fL (80.0-98.0); NRBC Abs Auto 0.000 X10*3/uL (0.0-0.012); NRBC Pct Auto 0.0 /100WBC (0.0-0.2); Platelet Count 300 X10*3/uL (160-400); Red Blood Count 3.99 X10*6/uL (4.20-5.50); White Blood Count 5.4 X10*3/uL (4.8-10.8)
--- OUTSIDE RECORDS SUMMARY | 2025-02-05 13:56 | XMS_ITS | Clinical Summary ---
Author Organization [facility] Address [address] [place] [address] Phone Care Team Providers Care Demo Event Specialist Name Role Phone Codi Tan Primary Care Provider [phone] Encounters Date Type Department Care Team Description 12/29/2024 2:23 PM EDT - 12/29/2024 11:59 PM EDT Hospital Encounter [facility] [address] [place] [phone] Neuralgia and neuritis, unspecified Discharge Disposition: [...] 5 Years) and At-Risk Patients (6 to 49 Years) Aged Out No longer eligi ble [...] original result were not included. Neurodiagnostic Lab [address] [place] [id number] Electromyograph Report Date of service: 12/29/24 Patient [...] note were not included. [facility] [address] [place] [address] Electromyograph Report Date of service: 12/29/24 Patient [...] Resul t from Last 3 Months Insurance [facility] Care Teams Demo Event Specialist Relationship Specialty Start Date End Date Codi Tan PA [address] [place] [phone] PCP - General 10/07/24
--- OUTSIDE RECORDS SUMMARY | 2025-02-05 13:56 | XMS_ITS | Encounter Summary ---
Author Organization [facility] Address [address] [place] [address] Care Team Providers Care Stock Digger Name Role Phone Codi Tan Primary Care Provider Unavailabl e Encounter Details Date Type Department Care Team (Late st Contact Info) Description 05/31/2024 [employer] Message Intial Department [address] [place] [id number] Picarro, Generic Provider [address] [place] [phone] Questionnaire Submission Social History Tobacco Use Types Packs/Day Years Used Date Smoking Tobacco: Former Cigarettes Alcohol Use Standard Drinks/Week Comments Not Currently 0 (1 standard drink = 0.6 oz pur e alcohol) Comments No Sex and Gender Information Value Date Recorded Sex Assigned at Female 04/03/2024 7:36 AM EDT Legal Sex Female 12:27 AM EDT Gender Identity Female 04/13/2024 1:20 PM EDT Sexual Orientation Straight 04/13/2024 1: 20 PM EDT documented as of this encounter Plan of Treatment Upcoming Encounters Date Type Department Care Team (Late st Contact Info) Description 02/24/2025 3:45 PM EDT Office Visit [facility] [address] [place] [address] Highway Administrative Engineer: Melissa Ritter PA [address] [facility] [place] [address] 04/12/2025 3:45 PM EDT Office Visit [facility] [address] [place] [address] Highway Administrative Engineer: Shannna Vila MD [address] [facility] [place] [address] documented as of this encounter Visit Diagnoses Not on filedocumented in this encounter Care Teams Stock Digger Relationship Specialty Start Date End Date Codi Tan [address] [place] [address] PCP - General 12/28/24 documented as of this encounter
--- OUTSIDE RECORDS SUMMARY | 2025-02-05 13:57 | XMS_ITS | Patient Health Record ---
Author Organization [facility] [address] Address [address] [place] [address] Care Team Providers Care Child Psychology Teacher Name Role Phone BYRON MALDONADO Unavailable [phone] DIETER LOPEZYN Unavailable [phone] YURI SHON Unavailable [phone] Allergies Allergen (clinical drug ingredient) Drug/Non Drug Allergy documented on EMR Reaction Allergy Type Onset Date Status Zofran vomiting Drug Allergy Active Results Component Value Reference Range Notes IRON, TIBC AND FERRITIN PANE L Reviewed date:09/25/2024 12:30:03 PM Interpretation: Performing [facility] Lili Painter Notes/Report: FASTING:NO FASTING: NO IRON, TOTAL 86 40-190 mcg/dL IRON BINDING CAPACITY 381 250-450 mcg/dL (lauro c) % SATURATION 23 16-45 % (calc) FERRITIN 10 16-232 ng/mL HARPAL SCREEN, IFA, W/REFL TITE R AND PATTERN Reviewed date:09/15/2024 04:11:28 PM Interpretation: Performing Lab[facility] Lili Painter Notes/Report: FASTING:NO FASTING: NO [...] Negative International Consensus on HARPAL Patterns (https://doi.org/10.1515/cc [email or web address]-[email or web address]) For additional information, please refer to http://what3words.Zapstitch/faq/MOU933 (This link is being provided for informational/ educational purposes only.) SED RATE BY MODIFIED WESTERG RENÉ Reviewed date:09/15/2024 08:12:06 AM Interpretation: Performing Lab:[facility] Lili Painter Notes/Report: FASTING:NO FASTING: NO SED RATE BY MODIFIED WESTERGREN 6 < OR = 20 mm/h VITAMIN D,25-OH,TOTAL,IA Reviewed date:09/15/2024 07:55:57 AM Interpretation: Performing Lab:[facility], [facility] Fabien Taya Painter Notes/Report: FASTING:NO FASTING: NO VITAMIN D,25-OH,TOTAL,IA 38 30-100 ng/mL Vitamin D Status 25-OH Vitamin D: Deficiency: <20 ng/mL Insufficiency: 20 - 29 ng/mL Optimal: > or = 30 ng/mL For 25-OH Vitamin D testing on patients on D2-supplementation and patients for whom quantitation of D2 and D3 fractions is required, the QuestAssureD(TM) 25-OH VIT D, (D2,D3), LC/MS/MS is recommended: order code 34032 (patients >2yrs). See Note 1 Note 1 For additional information, please refer to http://what3words.Zapstitch/faq/MPO024 (This link is being provided for informational/ educational purposes only.) VITAMIN B12 Reviewed date:09/15/2024 09:59:47 AM Interpretation: Performing Lab:[facility], [facility] Fabien Taya Cuellar Notes/Report: FASTING:NO FASTING: NO VITAMIN B12 187 709-2916 pg/mL RHEUMATOID FACTOR Reviewed date:09/15/2024 07:55:57 AM Interpretation: Performing Lab:[facility], [facility] [facility] Notes/Report: FASTING:NO FASTING: NO RHEUMATOID FACTOR <10 <14 IU/mL CBC (INCLUDES DIFF/PLT) Reviewed date:09/15/2024 12:05:37 PM Interpretation: Performing Lab:2, [facility] [facility] Notes/Report: FASTING:NO FASTING: NO WHITE BLOOD CELL [...] MPV 10.4 7.5-12.5 fL ABSOLUTE NEUTROPHILS 3168 9410-0810 cells/uL ABSOLUTE LYMPHOCYTES 2142 850-3900 cells/uL ABSOLUTE MONOCYTES 438 200-950 cells/uL ABSOLUTE EOSINOPHILS 192 15-500 cells/uL ABSOLUTE BASOPHILS 60 0-200 cells/uL NEUTROPHILS 52.8 LYMPHOCYTES 35.7 MONOCYTES 7.3 EOSINOPHILS 3.2 BASOPHILS 1.0 COMPREHENSIVE METABOLIC PANE L Reviewed date:09/15/2024 12:05:29 PM Interpretation: Performing Lab:[facility], [facility] [address] [facility] Notes/Report: FASTING:NO FASTING: NO GLUCOSE 98 65-139 [...] 7 10-30 U/L ALT 14 6-29 U/L Reason For Referral Reason evaluate & treat Diagnosis 1 History of endometri osis (Z87.42) Referral Organization [facility] Referring Provider First Name BYRON Referring Provider Last Name ERICA Referring Provider Speciality Internal edicine Referred Provider 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 p) [phone] f) [phone], Jasvir Lassiter 01/07/2025 02:37:53 PM > misty Martinez fax. Refaxed twice., Jasvir Lassiter 02/03/2025 02:39:37 PM > spoke with Melany, they tried to call pt on January 28. They haven't heard back. LVM to patient Referral Priority Routine Reason evaluate. s/p hyster ectomy Diagnosis 1 Nerve pain (M79.2) Referral Organization [facility] Referring Provider First Name BYRON Referring Provider Last Name ERICA Referring Provider Speciality Internal edicine Referred Provider Specialty Pain Medicin e Clinical Notes Martha Cat 11/27 02:52:02 PM > faxed pt info to [facility]. p) [phone] f) [phone], PATRICIA CERNA 12/31/2024 04:11:31 PM >[facility], [address] [place] [address] [address], [place] [address], p- [phone], Fax: [phone], Jasvir Lassiter 01/07/2025 02:49:27 PM > Spoke with misty Troncoso fax. When I fax it, it says Tiff, PDF and/or Word files are attached to this referral. , PATRICIA CERNA 01/07/2025 03:38:41 PM >refaxed, Jasvir Lassiter 02/03/2025 02:46:48 PM > spoke with Karyna. Pt is confused why we are sending her at [place]. They faxed back the referral to us., AlesharosyElise 02/05/2025 10:47:09 AM > refaxed to [phone] Referral Priority Routine Medications Medication SIG (Take, Route, Frequency, Duration) Notes Start Date End Date Status Ibuprofen 800 MG TAKE 1 TABLET (800 M G TOTAL) BY MOUTH 3 TIMES A DAY NEEDED FOR PAIN (PAIN). Oral; Duration: 30 Days Active Escitalopram Oxalate 20 MG TAKE 1 TABLET BY MOUTH EVERY DAY Oral; Duration: 90 Days Active Pregabalin 25 MG TAKE 1 CAPSULE BY MO UTH EVERY DAY FOR 30 DAYS Orally twice a day; Duration: 30 days 01/18/2025 Active [facility] Iron 240 (27 Fe) MG [...] EVERY DAY Oral; Duration: 84 Days Active predniSONE 20 MG 1 tablet with food o r milk Orally twice a day; Duration: 5 days 12/17/2024 Active Ferrous Sulfate 325 (65 Fe) MG TAKE 1 TABLET BY MOUTH THREE TIMES A WEEK; Duration: 84 Active Cyclobenzaprine HCl 5 MG 1 tablet at bed time as needed; Duration: 30 days Active Problems Problem Type SNOMED Code ICD Code Onset Dates Problem Status W/U Status Risk Notes Problem Vitamin D deficiency (05329436) Vitamin D deficiency, unspecified (E55.9) Active confirmed Problem Lipid screening (014393767) Encounter for screening for lipoid disorders (Z13.220) Active confirmed Problem Endocrine/metaboli c screening (188324621) Encounter for screening for other suspected endocrine disorder (Z13.29) Active confirmed Problem Anxiety (34131452) Anxiety (F41.9) Active confi rmed Problem Fatigue (38418568) Fatigue, unspecified type (R53.83) Active confirmed Problem Memory loss (89865835) Memory loss (R41.3) Active confirmed Problem Anemia (783234109) Anemia, unspecified type (D64.9) Active confirmed Problem Annual health maintenance examination (81050148) Annual physical exam (Z00.00) Active confirmed Problem Pain (59405217) Pain (R52) Active confirmed Problem Vitamin B>12< deficiency anaemia (04143316) Anemia due to vitamin B12 deficiency, unspecified B12 deficiency type (D51.9) Active confirmed Problem Difficulty passing urine (288248167) Difficulty urinating (R39.198) Active confirmed Problem Radicular pain (84696237) Nerve pain (M79.2) Active confirmed Problem Pain in female pelvis (214284842) Pelvic pain in female (R10.2) Active confirmed Problem History of endometriosis (39616930418101815 ) History of endometriosis (Z87.42) Active confirmed Problem Osteoarthritis (908892798) Joint inflammation (M19.90) Active confirmed Vital Signs Heart Rate 89 /min 02/05/2025 Oximetry 97 % 02/05/2025 Blood pressure diastolic 70 mm Hg 02/05/2025 Height 61 in 02/05/2025 Blood pressure systolic 122 mm Hg 02/05/2025 Weight 157.2 lbs 02/05/2025 BMI 29.7 kg/m2 02/05/2025 Encounters Encounter Location Date Provider Diagnosis [facility] [address] [place] [address] 09/11/2024 BYRON ERICA Pain R52 ; Pelvic pa in in female R10.2 ; Nerve pain M79.2 ; Anxiety F41.9 and Leg muscle spasm M62.[address] [place] [address] 09/18/2024 BYRON ERICA Pain R52 ; Pelvic pa in in female R10.2 ; Nerve pain M79.2 ; Anxiety F41.9 ; Leg muscle spasm M62.838 ; Anemia, unspecified type D64.9 and Difficulty urinating R39.198 [facility] [address] [place] [address] 10/02/2024 BYRON ERICA Nerve pain M79.2 ; P ain R52 ; Pelvic pain in female R10.2 ; Anxiety F41.9 ; Leg muscle spasm M62.838 ; Anemia, unspecified type D64.9 and Difficulty urinating R39.198 [facility] [address] [place] [address] 12/17/2024 BYRON ERICA Pain R52 ; Annual physical exam Z00.00 ; Nerve pain M79.2 ; Pelvic pain in female R10.2 ; Anxiety F41.9 ; Leg muscle spasm M62.838 ; Anemia, unspecified type D64.9 ; Difficulty urinating R39.198 ; Fatigue, unspecified type R53.83 ; Joint inflammation M19.90 and Encounter for examination of blood pressure without abnormal findings Z01.[address] [address] 12/31/2024 BYRON ERICA Pain R52 ; Nerve radha n M79.2 ; Pelvic pain in female R10.2 ; Anxiety F41.9 ; Leg muscle spasm M62.838 ; Anemia, unspecified type D64.9 ; Difficulty urinating R39.198 ; Fatigue, unspecified type R53.83 ; Joint inflammation M19.90 and Encounter for examination of blood pressure without abnormal findings Z01.[address] [address] 02/05/2025 BYRON ERICA Pain R52 ; Anxiety F41.9 ; Idiopathic acute pancreatitis without infection or necrosis K85.00 and Encounter for examination of blood pressure without abnormal findings Z01.[address] [address] 09/11/2024 BYRON ERICA Pelvic pain in femal e R10.2 [address] [address] 09/11/2024 BYRON ERICA [facility] [address] [place] [address] 09/17/2024 BYRON ERICA [facility] [address] [place] [address] 09/21/2024 BYRON ERICA [facility] [address] [facility] [address] [place] [address] 09/25/2024 BYRON ERICA [facility] [address] [place] [address] 09/29/2024 [place] [facility] [address] [place] [address] 09/29/2024 [place] [facility] [address] [place] [address] 09/30/2024 BYRON ERICA [facility] [address] [address] [place] [address] 10/05/2024 BYRON ERICA [facility] [address] [address] 10/26/2024 BYRON ERICA Nerve pain M79.2 [facility] [address] [address] [place] [address] 11/27/2024 BYRON ERICA Nerve pain M79.[address] [place] [address] 12/11/2024 BYRON ERICA [facility] [address] [facility] [address] [place] [address] 12/17/2024 [place] [facility] [address] [place] [address] 12/18/2024 BYRON ERICA [facility] [address] [place] [address] 12/30/2024 BYRON ERICA [facility] [address] [place] [address] 12/31/2024 BYRON ERICA Memory loss R41.3 an d Other fatigue R53.83 [facility] [address] [address] [place] [address] 12/31/2024 BYRON ERICA [facility] [address] [facility] [address] [place] [address] 01/06/2025 BYRON ERICA [facility] [address] [place] [address] 01/07/2025 BYRON ERICA [facility] [address] [place] [address] 01/15/2025 SHON WELCH Nerve pain M79.2 [facility] [address] [address] [place] [address] 01/15/2025 EDIE LOPEZ [facility] [address] [place] [address] 01/15/2025 BYRON ERICA Nerve pain M79.2 [facility] [address] [facility] [address] [place] [address] 02/01/2025 BYRON ERICA [facility] [address] [place] [address] 02/03/2025 BYRON ERICA [facility] [address] [facility] [address] [place] [address] 01/05/2025 EDIE LOPEZ Assessments Encounter Date Diagnosis (ICD Code) Assessment Notes Treatment Notes Treatment Clinical Notes Section Notes 09/11/2024 Pain (ICD-10 - R52) Domingo is a pleasant 43-year-old female who presents to the office today as a new patient. 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 #Abdominal pain: Patient presented on 09/05/2024 at [facility] status post hysterectomy at [facility] about 3 months ago, severe worsening pain [...] history: Patient encouraged to call and establish GASTROENTEROLOGY MANAGER care around the area. Will have patient sign record release for [facility] GASTROENTEROLOGY MANAGER. All questions have been answered to patient's satisfaction. Patient verbalized understanding of diagnosis and treatments explained. Advised to call sooner prior to next visit it any questions/concerns arise. Case discussed with Johnny GUEVARA who reviewed the assessment and plan. Chart, medications, labs, vital signs reviewed. 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 #Abdominal pain: Patient presented on 09/05/2024 at [facility] status post hysterectomy at [facility] about 3 months ago, severe worsening pain [...] history: Patient encouraged to call and establish GASTROENTEROLOGY MANAGER care around the area. Will have patient sign record release for [facility] GASTROENTEROLOGY MANAGER. All questions have been answered to patient's satisfaction. Patient verbalized understanding of diagnosis and treatments explained. Advised to call sooner prior to next visit it any questions/concerns arise. Case discussed with Johnny GUEVARA who reviewed the assessment and plan. Chart, medications, labs, vital signs reviewed. 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 #Abdominal pain: Patient presented on 09/05/2024 at [facility] status post hysterectomy at [facility] about 3 months ago, severe worsening pain [...] to this medication. Consider Cymbalta or Lyrica. #GASTROENTEROLOGY MANAGER: Patient is to call Dr. Arango office [...] bring this up with her newly established GASTROENTEROLOGY MANAGER for further pain management. #Insomnia: Continue hydroxyzine [...] history: Patient encouraged to call and establish GASTROENTEROLOGY MANAGER care around the area. Will have patient sign record release for [facility] GASTROENTEROLOGY MANAGER. #Fatigue: Due to patient's increased platelet, iron studies will be obtained. Patient states that she was told in the past she had been anemic, patient today states that she does take [id number]-kwswzlw iron supplementation All questions have been answered to patient's satisfaction. Patient verbalized understanding of diagnosis and treatments explained. Advised to call sooner prior to next visit it any questions/concerns arise. Case discussed with Johnny GUEVARA who reviewed the assessment and plan. Chart, medications, labs, vital signs reviewed. 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 #Abdominal pain: Patient presented on 09/05/2024 at [facility] status post hysterectomy at [facility] about 3 months ago, severe worsening pain [...] to this medication. Consider Cymbalta or Lyrica. #GASTROENTEROLOGY MANAGER: Patient is to call Dr. Arango office [...] bring this up with her newly established GASTROENTEROLOGY MANAGER for further pain management. #Insomnia: Continue hydroxyzine [...] history: Patient encouraged to call and establish GASTROENTEROLOGY MANAGER care around the area. Will have patient sign record release for [facility] GASTROENTEROLOGY MANAGER. #Fatigue: Due to patient's increased platelet, iron studies will be obtained. Patient states that she was told in the past she had been anemic, patient today states that she does take payl-fnd-fdbfxlc iron supplementation All questions have been answered to patient's satisfaction. Patient verbalized understanding of diagnosis and treatments explained. Advised to call sooner prior to next visit it any questions/concerns arise. Case discussed with Johnny GUEVARA who reviewed the assessment and plan. Chart, medications, labs, vital signs reviewed. 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 #Nerve pain: Ordering a EMG on the right lower extremity to assess nerve entrapment. #Abdominal pain: Patient presented on 09/05/2024 at [facility] status post hysterectomy at [facility] about 3 months ago, severe worsening pain [...] to be utilized only for muscle spasms. #GASTROENTEROLOGY MANAGER: Patient is to call Dr. Arango office to establish gynecologic care. #Endometriosis: Patient currently on norethindrone 0.35 mg tablets daily. Patient's mother inquiring about nonnarcotic pain medication, however I do not feel comfortable prescribing this today. Patient needs to bring this up with her newly established GASTROENTEROLOGY MANAGER for further pain management. #Insomnia: Continue hydroxyzine [...] history: Patient encouraged to call and establish GASTROENTEROLOGY MANAGER care around the area. Will have patient sign record release for [facility] GASTROENTEROLOGY MANAGER. #Fatigue: Due to patient's increased platelet, iron studies will be obtained. Patient states that she was told in the past she had been anemic, patient today states that she does take cvdb-yoe-egqobmv iron supplementation All questions have been answered to patient's satisfaction. Patient verbalized understanding of diagnosis and treatments explained. Advised to call sooner prior to next visit it any questions/concerns arise. Case discussed with Johnny GUEVARA who reviewed the assessment and plan. Chart, medications, labs, vital signs reviewed. Dictation was accomplished with the use of [employer] voice recognition software, which is prone to [...] daily, patient encouraged to call her previous GASTROENTEROLOGY MANAGER surgeon who performed the hysterectomy for further [...] #Abdominal pain: Patient presented on 09/05/2024 at [facility] status post hysterectomy at [facility] about 3 months ago, severe worsening pain [...] of the abdomen and pelvis are unremarkable. #GASTROENTEROLOGY MANAGER: Patient is to call Dr. Arango office to establish gynecologic care. All questions have been answered to patient's satisfaction. Patient verbalized understanding of diagnosis and treatments explained. Advised to call sooner prior to next visit it any questions/concerns arise. Case discussed with Johnny GUEVARA who reviewed the assessment and plan. Chart, medications, labs, vital signs reviewed. Dictation was accomplished with the use of [employer] voice recognition software, which is prone to [...] daily, patient encouraged to call her previous GASTROENTEROLOGY MANAGER surgeon who performed the hysterectomy for further [...] #Abdominal pain: Patient presented on 09/05/2024 at [facility] status post hysterectomy at [facility] about 3 months ago, severe worsening pain [...] of the abdomen and pelvis are unremarkable. #GASTROENTEROLOGY MANAGER: Patient is to call Dr. Arango office to establish gynecologic care. All questions have been answered to patient's satisfaction. Patient verbalized understanding of diagnosis and treatments explained. Advised to call sooner prior to next visit it any questions/concerns arise. Case discussed with Johnny GUEVARA who reviewed the assessment and plan. Chart, medications, labs, vital signs reviewed. Dictation was accomplished with the use of [employer] voice recognition software, which is prone to [...] daily, patient encouraged to call her previous GASTROENTEROLOGY MANAGER surgeon who performed the hysterectomy for further [...] #Abdominal pain: Patient presented on 09/05/2024 at [facility] status post hysterectomy at [facility] about 3 months ago, severe worsening pain [...] of the abdomen and pelvis are unremarkable. #GASTROENTEROLOGY MANAGER: Patient is to call Dr. Arango office [...] Dictation was accomplished with the use of [employer] voice recognition software, which is prone to medical misidentifications and grammatical errors. This are unintentional and the practitioner does try to identify and correct these, but some could still be present. Please do not hesitate to contact practitioner for clarification. 12/31/2024 Memory loss (ICD-10 - R41.3) 01/15/2025 Nerve pain (ICD-10 - M79.2) 01/15/2025 Nerve pain (ICD-10 - M79.2) 12/31/2024 Pain (ICD-10 - R52) Domingo is [...] daily, patient encouraged to call her previous GASTROENTEROLOGY MANAGER surgeon who performed the hysterectomy for further [...] #Abdominal pain: Patient presented on 09/05/2024 at [facility] status post hysterectomy at [facility] about 3 months ago, severe worsening pain [...] of the abdomen and pelvis are unremarkable. #GASTROENTEROLOGY MANAGER: Patient is to call Dr. Arango office [...] Dictation was accomplished with the use of [employer] voice recognition software, which is prone to medical misidentifications and grammatical errors. This are unintentional and the practitioner does try to identify and correct these, but some could still be present. Please do not hesitate to contact practitioner for clarification. 02/05/2025 Anxiety (ICD-10 - F41.9) Domingo is a 44-year-old female with a past medical history of endometriosis, hypertension, anxiety, nerve pain, peroneal neuropathy who presents to the office today for an emergency department follow-up. Patient was seen at [facility] on 01/30/2025 for chief complaint of abdominal pain. Ultimately was diagnosed with pancreatitis upon CT scan of the abdomen, patient left AMA and refused admission Today the patient is extremely uncomfortable, diffusely tender upon palpation in the abdomen... Patient claims that her lipase was elevated in the ER, I do not have access to these records. Advised patient to seek emergency department medical attention as she may now have an infection, temperature in office today is 98.6 which is reassuring that she does not meet sepsis criteria. Given patient left AMA on 01/30/2025, patient will return to [facility], ER has been contacted. All questions have been answered to patient's satisfaction. Patient verbalized understanding of diagnosis and treatments explained. Advised to call sooner prior to next visit it any questions/concerns arise. Case discussed with Johnny GUEVARA who reviewed the assessment and plan. Chart, medications, labs, vital signs reviewed. Dictation was accomplished with the use of [employer] voice recognition software, which is prone to medical misidentifications and grammatical errors. This are unintentional and the practitioner does try to identify and correct these, but some could still be present. Please do not hesitate to contact practitioner for clarification. 02/05/2025 Pain (ICD-10 - R52) Domingo is a 44-year-old female with a past medical history of endometriosis, hypertension, anxiety, nerve pain, peroneal neuropathy who presents to the office today for an emergency department follow-up. Patient was seen at [facility] on 01/30/2025 for chief complaint of abdominal pain. Ultimately was diagnosed with pancreatitis upon CT scan of the abdomen, patient left AMA and refused admission Today the patient is extremely uncomfortable, diffusely tender upon palpation in the abdomen... Patient claims that her lipase was elevated in the ER, I do not have access to these records. Advised patient to seek emergency department medical attention as she may now have an infection, temperature in office today is 98.6 which is reassuring that she does not meet sepsis criteria. Given patient left AMA on 01/30/2025, patient will return to [facility], ER has been contacted. All questions have been answered to patient's satisfaction. Patient verbalized understanding of diagnosis and treatments explained. Advised to call sooner prior to next visit it any questions/concerns arise. Case discussed with Johnny GUEVARA who reviewed the assessment and plan. Chart, medications, labs, vital signs reviewed. Dictation was accomplished with the use of [employer] voice recognition software, which is prone to medical misidentifications and grammatical errors. This are unintentional and the practitioner does try to identify and correct these, but some could still be present. Please do not hesitate to contact practitioner for clarification. 02/05/2025 Idiopathic acute pancreatitis without infection or necrosis (ICD-10 - K85.00) Domingo is a 44-year-old female with a past medical history of endometriosis, hypertension, anxiety, nerve pain, peroneal neuropathy who presents to the office today for an emergency department follow-up. Patient was seen at [facility] on 01/30/2025 for chief complaint of abdominal pain. Ultimately was diagnosed with pancreatitis upon CT scan of the abdomen, patient left AMA and refused admission Today the patient is extremely uncomfortable, diffusely tender upon palpation in the abdomen... Patient claims that her lipase was elevated in the ER, I do not have access to these records. Advised patient to seek emergency department medical attention as she may now have an infection, temperature in office today is 98.6 which is reassuring that she does not meet sepsis criteria. Given patient left AMA on 01/30/2025, patient will return to [facility], ER has been contacted. All questions have been answered to patient's satisfaction. Patient verbalized understanding of diagnosis and treatments explained. Advised to call sooner prior to next visit it any questions/concerns arise. Case discussed with Johnny GUEVARA who reviewed the assessment and plan. Chart, medications, labs, vital signs reviewed. Dictation was accomplished with the use of [employer] voice recognition software, which is prone to medical misidentifications and grammatical errors. This are unintentional and the practitioner does try to identify and correct these, but some could still be present. Please do not hesitate to contact practitioner for clarification. 12/31/2024 Other fatigue (ICD-10 - R53.83) 12/31/2024 Pelvic pain in female (ICD-10 - [...] daily, patient encouraged to call her previous GASTROENTEROLOGY MANAGER surgeon who performed the hysterectomy for further [...] #Abdominal pain: Patient presented on 09/05/2024 at [facility] status post hysterectomy at [facility] about 3 months ago, severe worsening pain [...] of the abdomen and pelvis are unremarkable. #GASTROENTEROLOGY MANAGER: Patient is to call Dr. Arango office [...] Dictation was accomplished with the use of [employer] voice recognition software, which is prone to medical misidentifications and grammatical errors. This are unintentional and the practitioner does try to identify and correct these, but some could still be present. Please do not hesitate to contact practitioner for clarification. 12/17/2024 Nerve pain (ICD-10 - M79.2) Domingo [...] daily, patient encouraged to call her previous GASTROENTEROLOGY MANAGER surgeon who performed the hysterectomy for further [...] #Abdominal pain: Patient presented on 09/05/2024 at [facility] status post hysterectomy at [facility] about 3 months ago, severe worsening pain [...] of the abdomen and pelvis are unremarkable. #GASTROENTEROLOGY MANAGER: Patient is to call Dr. Arango office to establish gynecologic care. All questions have been answered to patient's satisfaction. Patient verbalized understanding of diagnosis and treatments explained. Advised to call sooner prior to next visit it any questions/concerns arise. Case discussed with Johnny GUEVARA who reviewed the assessment and plan. Chart, medications, labs, vital signs reviewed. 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 #Abdominal pain: Patient presented on 09/05/2024 at [facility] status post hysterectomy at [facility] about 3 months ago, severe worsening pain [...] to this medication. Consider Cymbalta or Lyrica. #GASTROENTEROLOGY MANAGER: Patient is to call Dr. Arango office [...] bring this up with her newly established GASTROENTEROLOGY MANAGER for further pain management. #Insomnia: Continue hydroxyzine [...] history: Patient encouraged to call and establish GASTROENTEROLOGY MANAGER care around the area. Will have patient sign record release for [facility] GASTROENTEROLOGY MANAGER. #Fatigue: Due to patient's increased platelet, iron studies will be obtained. Patient states that she was told in the past she had been anemic, patient today states that she does take [id number] iron supplementation All questions have been answered to patient's satisfaction. Patient verbalized understanding of diagnosis and treatments explained. Advised to call sooner prior to next visit it any questions/concerns arise. Case discussed with Johnny GUEVARA who reviewed the assessment and plan. Chart, medications, labs, vital signs reviewed. 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 #Nerve pain: Ordering a EMG on the right lower extremity to assess nerve entrapment. #Abdominal pain: Patient presented on 09/05/2024 at [facility] status post hysterectomy at [facility] about 3 months ago, severe worsening pain [...] to be utilized only for muscle spasms. #GASTROENTEROLOGY MANAGER: Patient is to call Dr. Arango office to establish gynecologic care. #Endometriosis: Patient currently on norethindrone 0.35 mg tablets daily. Patient's mother inquiring about nonnarcotic pain medication, however I do not feel comfortable prescribing this today. Patient needs to bring this up with her newly established GASTROENTEROLOGY MANAGER for further pain management. #Insomnia: Continue hydroxyzine [...] history: Patient encouraged to call and establish GASTROENTEROLOGY MANAGER care around the area. Will have patient sign record release for [facility] GASTROENTEROLOGY MANAGER. #Fatigue: Due to patient's increased platelet, iron studies will be obtained. Patient states that she was told in the past she had been anemic, patient today states that she does take [id number] iron supplementation All questions have been answered to patient's satisfaction. Patient verbalized understanding of diagnosis and treatments explained. Advised to call sooner prior to next visit it any questions/concerns arise. Case discussed with Johnny GUEVARA who reviewed the assessment and plan. Chart, medications, labs, vital signs reviewed. 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 #Abdominal pain: Patient presented on 09/05/2024 at [facility] status post hysterectomy at [facility] about 3 months ago, severe worsening pain [...] history: Patient encouraged to call and establish GASTROENTEROLOGY MANAGER care around the area. Will have patient sign record release for [facility] GASTROENTEROLOGY MANAGER. All questions have been answered to patient's satisfaction. Patient verbalized understanding of diagnosis and treatments explained. Advised to call sooner prior to next visit it any questions/concerns arise. Case discussed with Johnny GUEVARA who reviewed the assessment and plan. Chart, medications, labs, vital signs reviewed. 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 #Abdominal pain: Patient presented on 09/05/2024 at [facility] status post hysterectomy at [facility] about 3 months ago, severe worsening pain [...] to this medication. Consider Cymbalta or Lyrica. #GASTROENTEROLOGY MANAGER: Patient is to call Dr. Arango office [...] bring this up with her newly established GASTROENTEROLOGY MANAGER for further pain management. #Insomnia: Continue hydroxyzine [...] history: Patient encouraged to call and establish GASTROENTEROLOGY MANAGER care around the area. Will have patient sign record release for [facility] GASTROENTEROLOGY MANAGER. #Fatigue: Due to patient's increased platelet, iron studies will be obtained. Patient states that she was told in the past she had been anemic, patient today states that she does take [id number] iron supplementation All questions have been answered to patient's satisfaction. Patient verbalized understanding of diagnosis and treatments explained. Advised to call sooner prior to next visit it any questions/concerns arise. Case discussed with Johnny GUEVARA who reviewed the assessment and plan. Chart, medications, labs, vital signs reviewed. 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 #Abdominal pain: Patient presented on 09/05/2024 at [facility] status post hysterectomy at [facility] about 3 months ago, severe worsening pain [...] history: Patient encouraged to call and establish GASTROENTEROLOGY MANAGER care around the area. Will have patient sign record release for [facility] GASTROENTEROLOGY MANAGER. All questions have been answered to patient's satisfaction. Patient verbalized understanding of diagnosis and treatments explained. Advised to call sooner prior to next visit it any questions/concerns arise. Case discussed with Johnny GUEVARA who reviewed the assessment and plan. Chart, medications, labs, vital signs reviewed. Dictation was accomplished with the use of [employer] voice recognition software, which is prone to [...] daily, patient encouraged to call her previous GASTROENTEROLOGY MANAGER surgeon who performed the hysterectomy for further [...] #Abdominal pain: Patient presented on 09/05/2024 at [facility] status post hysterectomy at [facility] about 3 months ago, severe worsening pain [...] of the abdomen and pelvis are unremarkable. #GASTROENTEROLOGY MANAGER: Patient is to call Dr. Arango office to establish gynecologic care. All questions have been answered to patient's satisfaction. Patient verbalized understanding of diagnosis and treatments explained. Advised to call sooner prior to next visit it any questions/concerns arise. Case discussed with Johnny GUEVARA who reviewed the assessment and plan. Chart, medications, labs, vital signs reviewed. Dictation was accomplished with the use of [employer] voice recognition software, which is prone to [...] daily, patient encouraged to call her previous GASTROENTEROLOGY MANAGER surgeon who performed the hysterectomy for further [...] #Abdominal pain: Patient presented on 09/05/2024 at [facility] status post hysterectomy at [facility] about 3 months ago, severe worsening pain [...] of the abdomen and pelvis are unremarkable. #GASTROENTEROLOGY MANAGER: Patient is to call Dr. 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 #Nerve pain: Ordering a EMG on the right lower extremity to assess nerve entrapment. #Abdominal pain: Patient presented on 09/05/2024 at [facility] status post hysterectomy at [facility] about 3 months ago, severe worsening pain [...] to be utilized only for muscle spasms. #GASTROENTEROLOGY MANAGER: Patient is to call Dr. Arango office to establish gynecologic care. #Endometriosis: Patient currently on norethindrone 0.35 mg tablets daily. Patient's mother inquiring about nonnarcotic pain medication, however I do not feel comfortable prescribing this today. Patient needs to bring this up with her newly established GASTROENTEROLOGY MANAGER for further pain management. #Insomnia: Continue hydroxyzine [...] history: Patient encouraged to call and establish GASTROENTEROLOGY MANAGER care around the area. Will have patient sign record release for [facility] GASTROENTEROLOGY MANAGER. #Fatigue: Due to patient's increased platelet, iron studies will be obtained. Patient states that she was told in the past she had been anemic, patient today states that she does take [id number] iron supplementation All questions have been answered to patient's satisfaction. Patient verbalized understanding of diagnosis and treatments explained. Advised to call sooner prior to next visit it any questions/concerns arise. Case discussed with Johnny GUEVARA who reviewed the assessment and plan. Chart, medications, labs, vital signs reviewed. Dictation was accomplished with the use of [employer] voice recognition software, which is prone to medical misidentifications and grammatical errors. This are unintentional and the practitioner does try to identify and correct these, but some could still be present. Please do not hesitate to contact practitioner for clarification. 02/05/2025 Encounter for examination of blood pressure without abnormal findings (ICD-10 - Z01.30) Domingo is a 44-year-old female with a past medical history of endometriosis, hypertension, anxiety, nerve pain, peroneal neuropathy who presents to the office today for an emergency department follow-up. Patient was seen at [facility] on 01/30/2025 for chief complaint of abdominal pain. Ultimately was diagnosed with pancreatitis upon CT scan of the abdomen, patient left AMA and refused admission Today the patient is extremely uncomfortable, diffusely tender upon palpation in the abdomen... Patient claims that her lipase was elevated in the ER, I do not have access to these records. Advised patient to seek emergency department medical attention as she may now have an infection, temperature in office today is 98.6 which is reassuring that she does not meet sepsis criteria. Given patient left AMA on 01/30/2025, patient will return to [facility], ER has been contacted. All questions have been answered to patient's satisfaction. Patient verbalized understanding of diagnosis and treatments explained. Advised to call sooner prior to next visit it any questions/concerns arise. Case discussed with Johnny GUEVARA who reviewed the assessment and plan. Chart, medications, labs, vital signs reviewed. Dictation was accomplished with the use of [employer] voice recognition software, which is prone to [...] daily, patient encouraged to call her previous GASTROENTEROLOGY MANAGER surgeon who performed the hysterectomy for further [...] #Abdominal pain: Patient presented on 09/05/2024 at [facility] status post hysterectomy at [facility] about 3 months ago, severe worsening pain [...] of the abdomen and pelvis are unremarkable. #GASTROENTEROLOGY MANAGER: Patient is to call Dr. Arango office [...] Dictation was accomplished with the use of [employer] voice recognition software, which is prone to [...] daily, patient encouraged to call her previous GASTROENTEROLOGY MANAGER surgeon who performed the hysterectomy for further [...] #Abdominal pain: Patient presented on 09/05/2024 at [facility] status post hysterectomy at [facility] about 3 months ago, severe worsening pain [...] of the abdomen and pelvis are unremarkable. #GASTROENTEROLOGY MANAGER: Patient is to call Dr. Arango office to establish gynecologic care. All questions have been answered to patient's satisfaction. Patient verbalized understanding of diagnosis and treatments explained. Advised to call sooner prior to next visit it any questions/concerns arise. Case discussed with Johnny GUEVARA who reviewed the assessment and plan. Chart, medications, labs, vital signs reviewed. 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 #Abdominal pain: Patient presented on 09/05/2024 at [facility] status post hysterectomy at [facility] about 3 months ago, severe worsening pain [...] to this medication. Consider Cymbalta or Lyrica. #GASTROENTEROLOGY MANAGER: Patient is to call Dr. Arango office [...] bring this up with her newly established GASTROENTEROLOGY MANAGER for further pain management. #Insomnia: Continue hydroxyzine [...] history: Patient encouraged to call and establish GASTROENTEROLOGY MANAGER care around the area. Will have patient sign record release for [facility] GASTROENTEROLOGY MANAGER. #Fatigue: Due to patient's increased platelet, iron studies will be obtained. Patient states that she was told in the past she had been anemic, patient today states that she does take [id number]-[id number] iron supplementation All questions have been answered to patient's satisfaction. Patient verbalized understanding of diagnosis and treatments explained. Advised to call sooner prior to next visit it any questions/concerns arise. Case discussed with Johnny GUEVARA who reviewed the assessment and plan. Chart, medications, labs, vital signs reviewed. 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 #Nerve pain: Ordering a EMG on the right lower extremity to assess nerve entrapment. #Abdominal pain: Patient presented on 09/05/2024 at [facility] status post hysterectomy at [facility] about 3 months ago, severe worsening pain [...] to be utilized only for muscle spasms. #GASTROENTEROLOGY MANAGER: Patient is to call Dr. Arango office to establish gynecologic care. #Endometriosis: Patient currently on norethindrone 0.35 mg tablets daily. Patient's mother inquiring about nonnarcotic pain medication, however I do not feel comfortable prescribing this today. Patient needs to bring this up with her newly established GASTROENTEROLOGY MANAGER for further pain management. #Insomnia: Continue hydroxyzine [...] history: Patient encouraged to call and establish GASTROENTEROLOGY MANAGER care around the area. Will have patient sign record release for [facility] GASTROENTEROLOGY MANAGER. #Fatigue: Due to patient's increased platelet, iron studies will be obtained. Patient states that she was told in the past she had been anemic, patient today states that she does take [id number]-[id number] iron supplementation All questions have been answered to patient's satisfaction. Patient verbalized understanding of diagnosis and treatments explained. Advised to call sooner prior to next visit it any questions/concerns arise. Case discussed with Johnny GUEVARA who reviewed the assessment and plan. Chart, medications, labs, vital signs reviewed. 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 #Abdominal pain: Patient presented on 09/05/2024 at [facility] status post hysterectomy at [facility] about 3 months ago, severe worsening pain [...] history: Patient encouraged to call and establish GASTROENTEROLOGY MANAGER care around the area. Will have patient sign record release for [facility] GASTROENTEROLOGY MANAGER. All questions have been answered to patient's satisfaction. Patient verbalized understanding of diagnosis and treatments explained. Advised to call sooner prior to next visit it any questions/concerns arise. Case discussed with Johnny GUEVARA who reviewed the assessment and plan. Chart, medications, labs, vital signs reviewed. 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 #Nerve pain: Ordering a EMG on the right lower extremity to assess nerve entrapment. #Abdominal pain: Patient presented on 09/05/2024 at [facility] status post hysterectomy at [facility] about 3 months ago, severe worsening pain [...] to be utilized only for muscle spasms. #GASTROENTEROLOGY MANAGER: Patient is to call Dr. Arango office to establish gynecologic care. #Endometriosis: Patient currently on norethindrone 0.35 mg tablets daily. Patient's mother inquiring about nonnarcotic pain medication, however I do not feel comfortable prescribing this today. Patient needs to bring this up with her newly established GASTROENTEROLOGY MANAGER for further pain management. #Insomnia: Continue hydroxyzine [...] history: Patient encouraged to call and establish GASTROENTEROLOGY MANAGER care around the area. Will have patient sign record release for [facility] GASTROENTEROLOGY MANAGER. #Fatigue: Due to patient's increased platelet, iron studies will be obtained. Patient states that she was told in the past she had been anemic, patient today states that she does take [id number]-bxt-wciunhv iron supplementation All questions have been answered to patient's satisfaction. Patient verbalized understanding of diagnosis and treatments explained. Advised to call sooner prior to next visit it any questions/concerns arise. Case discussed with Johnny GUEVARA who reviewed the assessment and plan. Chart, medications, labs, vital signs reviewed. Dictation was accomplished with the use of [employer] voice recognition software, which is prone to [...] daily, patient encouraged to call her previous GASTROENTEROLOGY MANAGER surgeon who performed the hysterectomy for further [...] #Abdominal pain: Patient presented on 09/05/2024 at [facility] status post hysterectomy at [facility] about 3 months ago, severe worsening pain [...] of the abdomen and pelvis are unremarkable. #GASTROENTEROLOGY MANAGER: Patient is to call Dr. Arango office [...] Dictation was accomplished with the use of [employer] voice recognition software, which is prone to [...] daily, patient encouraged to call her previous GASTROENTEROLOGY MANAGER surgeon who performed the hysterectomy for further [...] #Abdominal pain: Patient presented on 09/05/2024 at [facility] status post hysterectomy at [facility] about 3 months ago, severe worsening pain [...] of the abdomen and pelvis are unremarkable. #GASTROENTEROLOGY MANAGER: Patient is to call Dr. Arango office to establish gynecologic care. All questions have been answered to patient's satisfaction. Patient verbalized understanding of diagnosis and treatments explained. Advised to call sooner prior to next visit it any questions/concerns arise. Case discussed with Johnny GUEVARA who reviewed the assessment and plan. Chart, medications, labs, vital signs reviewed. Dictation was accomplished with the use of [employer] voice recognition software, which is prone to [...] daily, patient encouraged to call her previous GASTROENTEROLOGY MANAGER surgeon who performed the hysterectomy for further [...] #Abdominal pain: Patient presented on 09/05/2024 at [facility] status post hysterectomy at [facility] about 3 months ago, severe worsening pain [...] of the abdomen and pelvis are unremarkable. #GASTROENTEROLOGY MANAGER: Patient is to call Dr. Arango office to establish gynecologic care. All questions have been answered to patient's satisfaction. Patient verbalized understanding of diagnosis and treatments explained. Advised to call sooner prior to next visit it any questions/concerns arise. Case discussed with Johnny GUEVARA who reviewed the assessment and plan. Chart, medications, labs, vital signs reviewed. 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 #Abdominal pain: Patient presented on 09/05/2024 at [facility] status post hysterectomy at [facility] about 3 months ago, severe worsening pain [...] to this medication. Consider Cymbalta or Lyrica. #GASTROENTEROLOGY MANAGER: Patient is to call Dr. Arango office [...] bring this up with her newly established GASTROENTEROLOGY MANAGER for further pain management. #Insomnia: Continue hydroxyzine [...] history: Patient encouraged to call and establish GASTROENTEROLOGY MANAGER care around the area. Will have patient sign record release for [facility] GASTROENTEROLOGY MANAGER. #Fatigue: Due to patient's increased platelet, iron studies will be obtained. Patient states that she was told in the past she had been anemic, patient today states that she does take [id number] iron supplementation All questions have been answered to patient's satisfaction. Patient verbalized understanding of diagnosis and treatments explained. Advised to call sooner prior to next visit it any questions/concerns arise. Case discussed with Johnny GUEVARA who reviewed the assessment and plan. Chart, medications, labs, vital signs reviewed. 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 #Nerve pain: Ordering a EMG on the right lower extremity to assess nerve entrapment. #Abdominal pain: Patient presented on 09/05/2024 at [facility] status post hysterectomy at [facility] about 3 months ago, severe worsening pain [...] to be utilized only for muscle spasms. #GASTROENTEROLOGY MANAGER: Patient is to call Dr. Arango office to establish gynecologic care. #Endometriosis: Patient currently on norethindrone 0.35 mg tablets daily. Patient's mother inquiring about nonnarcotic pain medication, however I do not feel comfortable prescribing this today. Patient needs to bring this up with her newly established GASTROENTEROLOGY MANAGER for further pain management. #Insomnia: Continue hydroxyzine [...] history: Patient encouraged to call and establish GASTROENTEROLOGY MANAGER care around the area. Will have patient sign record release for [facility] GASTROENTEROLOGY MANAGER. #Fatigue: Due to patient's increased platelet, iron studies will be obtained. Patient states that she was told in the past she had been anemic, patient today states that she does take [id number] iron supplementation All questions have been answered to patient's satisfaction. Patient verbalized understanding of diagnosis and treatments explained. Advised to call sooner prior to next visit it any questions/concerns arise. Case discussed with Johnny GUEVARA who reviewed the assessment and plan. Chart, medications, labs, vital signs reviewed. Dictation was accomplished with the use of [employer] voice recognition software, which is prone to [...] daily, patient encouraged to call her previous GASTROENTEROLOGY MANAGER surgeon who performed the hysterectomy for further [...] patient to call psychiatrist and advocate for Elioalta as this may help with her nerve pain... Has an appointment scheduled the end of the month #Muscle spasms: Utilize cyclobenzaprine HCL 5 mg tablets as needed. Discontinue ketorolac as this has not been helpful for patient. #Insomnia: Continue hydroxyzine 25 mg tablets as needed. #Abdominal pain: Patient presented on 09/05/2024 at [facility] status post hysterectomy at [facility] about 3 months ago, severe worsening pain [...] of the abdomen and pelvis are unremarkable. #GASTROENTEROLOGY MANAGER: Patient is to call Dr. 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 #Nerve pain: Ordering a EMG on the right lower extremity to assess nerve entrapment. #Abdominal pain: Patient presented on 09/05/2024 at [facility] status post hysterectomy at [facility] about 3 months ago, severe worsening pain [...] to be utilized only for muscle spasms. #GASTROENTEROLOGY MANAGER: Patient is to call Dr. Arango office to establish gynecologic care. #Endometriosis: Patient currently on norethindrone 0.35 mg tablets daily. Patient's mother inquiring about nonnarcotic pain medication, however I do not feel comfortable prescribing this today. Patient needs to bring this up with her newly established GASTROENTEROLOGY MANAGER for further pain management. #Insomnia: Continue hydroxyzine [...] history: Patient encouraged to call and establish GASTROENTEROLOGY MANAGER care around the area. Will have patient sign record release for [facility] GASTROENTEROLOGY MANAGER. #Fatigue: Due to patient's increased platelet, iron studies will be obtained. Patient states that she was told in the past she had been anemic, patient today states that she does take [id number]-fwkxhgg iron supplementation All questions have been answered to patient's satisfaction. Patient verbalized understanding of diagnosis and treatments explained. Advised to call sooner prior to next visit it any questions/concerns arise. Case discussed with Johnny GUEVARA who reviewed the assessment and plan. Chart, medications, labs, vital signs reviewed. 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 #Abdominal pain: Patient presented on 09/05/2024 at [facility] status post hysterectomy at [facility] about 3 months ago, severe worsening pain [...] to this medication. Consider Cymbalta or Lyrica. #GASTROENTEROLOGY MANAGER: Patient is to call Dr. Arango office [...] bring this up with her newly established GASTROENTEROLOGY MANAGER for further pain management. #Insomnia: Continue hydroxyzine [...] history: Patient encouraged to call and establish GASTROENTEROLOGY MANAGER care around the area. Will have patient sign record release for [facility] GASTROENTEROLOGY MANAGER. #Fatigue: Due to patient's increased platelet, iron studies will be obtained. Patient states that she was told in the past she had been anemic, patient today states that she does take [id number]-hrpoquf iron supplementation All questions have been answered to patient's satisfaction. Patient verbalized understanding of diagnosis and treatments explained. Advised to call sooner prior to next visit it any questions/concerns arise. Case discussed with Johnny GUEVARA who reviewed the assessment and plan. Chart, medications, labs, vital signs reviewed. Dictation was accomplished with the use of [employer] voice recognition software, which is prone to [...] daily, patient encouraged to call her previous GASTROENTEROLOGY MANAGER surgeon who performed the hysterectomy for further [...] #Abdominal pain: Patient presented on 09/05/2024 at [facility] status post hysterectomy at [facility] about 3 months ago, severe worsening pain [...] of the abdomen and pelvis are unremarkable. #GASTROENTEROLOGY MANAGER: Patient is to call Dr. Arango office [...] Dictation was accomplished with the use of [employer] voice recognition software, which is prone to [...] daily, patient encouraged to call her previous GASTROENTEROLOGY MANAGER surgeon who performed the hysterectomy for further [...] #Abdominal pain: Patient presented on 09/05/2024 at [facility] status post hysterectomy at [facility] about 3 months ago, severe worsening pain [...] of the abdomen and pelvis are unremarkable. #GASTROENTEROLOGY MANAGER: Patient is to call Dr. Arango office to establish gynecologic care. All questions have been answered to patient's satisfaction. Patient verbalized understanding of diagnosis and treatments explained. Advised to call sooner prior to next visit it any questions/concerns arise. Case discussed with Johnny GUEVARA who reviewed the assessment and plan. Chart, medications, labs, vital signs reviewed. Dictation was accomplished with the use of [employer] voice recognition software, which is prone to [...] daily, patient encouraged to call her previous GASTROENTEROLOGY MANAGER surgeon who performed the hysterectomy for further [...] #Abdominal pain: Patient presented on 09/05/2024 at [facility] status post hysterectomy at [facility] about 3 months ago, severe worsening pain [...] of the abdomen and pelvis are unremarkable. #GASTROENTEROLOGY MANAGER: Patient is to call Dr. Arango office to establish gynecologic care. All questions have been answered to patient's satisfaction. Patient verbalized understanding of diagnosis and treatments explained. Advised to call sooner prior to next visit it any questions/concerns arise. Case discussed with Johnny GUEVARA who reviewed the assessment and plan. Chart, medications, labs, vital signs reviewed. Dictation was accomplished with the use of [employer] voice recognition software, which is prone to [...] daily, patient encouraged to call her previous GASTROENTEROLOGY MANAGER surgeon who performed the hysterectomy for further [...] #Abdominal pain: Patient presented on 09/05/2024 at [facility] status post hysterectomy at [facility] about 3 months ago, severe worsening pain [...] of the abdomen and pelvis are unremarkable. #GASTROENTEROLOGY MANAGER: Patient is to call Dr. Arango office [...] Dictation was accomplished with the use of [employer] voice recognition software, which is prone to [...] daily, patient encouraged to call her previous GASTROENTEROLOGY MANAGER surgeon who performed the hysterectomy for further [...] #Abdominal pain: Patient presented on 09/05/2024 at [facility] status post hysterectomy at [facility] about 3 months ago, severe worsening pain [...] of the abdomen and pelvis are unremarkable. #GASTROENTEROLOGY MANAGER: Patient is to call Dr. Arango office to establish gynecologic care. All questions have been answered to patient's satisfaction. Patient verbalized understanding of diagnosis and treatments explained. Advised to call sooner prior to next visit it any questions/concerns arise. Case discussed with Johnny GUEVARA who reviewed the assessment and plan. Chart, medications, labs, vital signs reviewed. Dictation was accomplished with the use of [employer] voice recognition software, which is prone to [...] daily, patient encouraged to call her previous GASTROENTEROLOGY MANAGER surgeon who performed the hysterectomy for further [...] patient to call psychiatrist and advocate for Elioalta as this may help with her nerve pain... Has an appointment scheduled the end of the month #Muscle spasms: Utilize cyclobenzaprine HCL 5 mg tablets as needed. Discontinue ketorolac as this has not been helpful for patient. #Insomnia: Continue hydroxyzine 25 mg tablets as needed. #Abdominal pain: Patient presented on 09/05/2024 at [facility] status post hysterectomy at [facility] about 3 months ago, severe worsening pain [...] of the abdomen and pelvis are unremarkable. #GASTROENTEROLOGY MANAGER: Patient is to call Dr. Arango office [...] Dictation was accomplished with the use of [employer] voice recognition software, which is prone to [...] daily, patient encouraged to call her previous GASTROENTEROLOGY MANAGER surgeon who performed the hysterectomy for further [...] #Abdominal pain: Patient presented on 09/05/2024 at [facility] status post hysterectomy at [facility] about 3 months ago, severe worsening pain [...] of the abdomen and pelvis are unremarkable. #GASTROENTEROLOGY MANAGER: Patient is to call Dr. Arango office to establish gynecologic care. All questions have been answered to patient's satisfaction. Patient verbalized understanding of diagnosis and treatments explained. Advised to call sooner prior to next visit it any questions/concerns arise. Case discussed with Johnny GUEVARA who reviewed the assessment and plan. Chart, medications, labs, vital signs reviewed. Dictation was accomplished with the use of [employer] voice recognition software, which is prone to [...] Name:BYRON MALDONADO, 10:30:00 AM, [address], [place], [address], Insurance Providers Payer Name Payer Address Payer Phone Subscriber Number Group Number Insured Name Patient Relationship to Insured Coverage Start Date Coverage End Date [facility] [address] [place] [address] [id number] DOMINGO BELTRAN Self - patient is the insured 3 Medications Administered Medication Instructions Date of Administration Dosage Notes MICC B12 INJECTION 10/02/2024 1 mL Medical (General) History Medical History History ICD Code endometriosis high blood pressure Anxiety F41.9 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
--- OUTSIDE RECORDS SUMMARY | 2025-02-05 13:57 | XMS_ITS | Patient Health Record ---
[facility] Organization [facility] Address [address] [place] [address] [address] [place], [place] [id number] Care Team Providers Care Speech And Language Tutor Name Role Phone ELI CEE Primary Care [...] Risk Notes Problem Moderate recurrent major depression (52726715) Major depressive disorder, recurrent, moderate (F33.1) Active confirmed Problem Asthma (241864127) Asthma (J45.909) Active confirmed Problem Opioid dependence (19627909) Narcotic dependence (F11.20) Active confirmed Problem Opioid abuse (6795529) Narcotic abuse (F11.10) Active confirmed Vital Signs [...] HS Encounters Encounter Location Date Provider Diagnosis [address] [place], [place] [id number] 08/12/2024 ELI CEE Asthma J45.909 ; Encounter for general adult medical examination with abnormal findings Z00.01 ; Narcotic dependence F11.20 ; Narcotic abuse F11.10 ; Major depressive disorder, recurrent, moderate F33.1 and Encounter for screening for cardiovascular disorders Z13.[address] [place], [place] [id number] 07/07/2024 ELI CEE [address] [place], [place] [id number] 07/23/2024 ELI CEE Assessments Encounter Date Diagnosis [...] to immediately check into an an [facility]. also referred he rto the [employer] outpatent program 08/12/2024 Narcotic abuse (ICD-10 - [...] Insured Coverage Start Date Coverage End Date [facility] [address] [facility] [place] [phone] [id number] Kavya Mayberry Self - patient is the insured Medical (General) History Medical History History ICD Code Asthma J45.909 Surgical History Surgery Date(Month/Year) hysterectomy 2023 oopherectomy, unilateral 2023 bilateral salpingectomy 2023
--- OUTSIDE RECORDS SUMMARY | 2025-02-05 13:57 | XMS_ITS | Encounter Summary ---
Author Organization [facility] Address [address] [place] [address] Care Team Providers Care Machine Clothing Man Name Role Phone Unavailable Primary Care Provider Unavailabl e Encounter Details Date Type Department Care Team (Late st Contact Info) Description 01/08/2025 Transcribe Orders MG PAIN MGMT [id number] [facility] [address] [place] [address] System, Provider Not In Nerve [...]
[2025-02-05 14:01] LABS: Alanine Aminotransferase 44 U/L (0-31); Albumin Level 4.4 g/dL (3.5-5.0); Alkaline Phosphatase 65 U/L (39-117); Anion Gap 9 (12-20); Aspartate Amino Transferase 11 U/L (5-31); Blood Urea Nitrogen 10 mg/dL (9-16); Calcium 8.9 mg/dL (8.4-10.2); Carbon Dioxide 30 mmol/L (22-29); Chloride 107 mmol/L (96-108); Creatinine Clr Calc Pharmacy 87.0; Estimated Glomerular Filt Rate > 60; Lipase 71 U/L (8-78); Magnesium 2.6 mg/dL (1.6-2.6); Potassium 3.9 mmol/L (3.3-5.1); Sodium 142 mmol/L (135-145); Total Protein 6.6 g/dL (6.5-8.0)
[2025-02-05 14:21] VITALS: BP 114/76; PULSE 77; RESP 16; TEMP 36.8; O2SAT 100
[2025-02-05 14:25] LABS: Appearance Urine Turbid; Glucose Urine UA Negative (Negative); PH 8.5 (5.0-9.0); Specific Gravity - Urine 1.015 (1.005-1.025); UMIC TRIGGER UACC YES
[2025-02-05 14:38] VITALS: RESP 22
[2025-02-05] MEDS: diazePAM 10 MG/2 ML CARTRIDGE 2.5 MG IVPUSH (17:57)
[2025-02-05 19:08] VITALS: BP 130/85; PULSE 82; RESP 12; TEMP 36.5; O2SAT 100
[2025-02-05 19:13] VITALS: BP 130/85; PULSE 82; RESP 12; TEMP 36.5; O2SAT 100
== END 2025-02-05 19:15 | disposition home or self-care (01) ==
PROVIDERS: Physician Assistant; Emergency Provider Emergency Medicine
DX: K59.00 Constipation, unspecified (principal); R11.2 Nausea with vomiting, unspecified; R10.31 Right lower quadrant pain; R50.9 Fever, unspecified
CPT/HCPCS: 36415; 74018; 76705; 76830; 76856; 80048; 80076; 80307; 81001; 83690; 83735; 84702; 85025; 86140; 93975; 96374; 96375; 99284; 99285; J1885; J2270; J2765; J3360

== ENCOUNTER → 2025-02-05 14:58 | Outpatient (BNV) | payer OTHER, SELFPAY | PROVIDERS: Emergency Provider Emergency Medicine; Visit Provider Radiology Diagnostic Radiology | DX: R10.31 Right lower quadrant pain (principal); K82.8 Other specified diseases of gallbladder | CPT/HCPCS: 74018; 76705; 76830; 76856 ==